=== PATIENT | female | born 1950 | race African-American/Black ===

== ENCOUNTER 2019-03-24 15:18 | Inpatient (IN) | payer BC, SELFPAY ==
[2019-03-24] VITALS (15 sets, daily range): BP systolic 80–161; BP diastolic 44–103; PULSE 76–116; RESP 16–39; TEMP 37.4; O2SAT 90–100; BMI 27.6
--- NOTE | ~2019-03-24 | XR_ITS ---
EXAMINATION: XR chest 1V portable DATE: 03/26/2019 06:30 INDICATION: Diffuse infiltrates. ARDS. TECHNIQUE: A single frontal view of the chest was obtained. COMPARISON: Chest single view 03/24/2019 FINDINGS: There are airspace opacities in all lung zones bilaterally, worst in left lower lung zone. There are small right and moderate-sized left pleural effusions. No pneumothorax. The heart size is n ormal. The endotracheal tube tip is 1.5 cm above the alec. The nasogastric tube tip is beyond the i nferior margin of the radiograph, but at least to the stomach. IMPRESSION: 1. Worsened diffuse lung disease, consistent with pulmonary edema versus pneumonia versus acute respi ratory distress syndrome (ARDS). 2. Worsened small right and moderate-sized left pleural effusions. Reviewed, dictated and finalized at location A. NCIAL INTERNSHIP IMPRESSION: 1. Worsened diffuse lung disease, consistent with pulmonary edema versus pneumo ariane versus acute respiratory distress syndrome (ARDS). 2. Worsened small right and moderate-sized left pleural effusions.
--- NOTE | ~2019-03-24 | XR_ITS ---
EXAMINATION: XR chest 1V portable INDICATION: Congestive heart failure TECHNIQUE: Portable AP chest at 1006 hours COMPARISON: 04/09/2019 FINDINGS: The endotracheal and nasogastric tubes have been removed. There is stable cardiomegaly. Dif fuse interstitial and airspace opacities persist but have improved, particularly in the mid and upper lung zones. No pneumothorax is identified. Small pleural effusions are stable. IMPRESSION: 1. Diffuse lung disease with interval improvement in the mid and upper lung zones, consistent with im proving pulmonary edema and/or pneumonia and/or acute respiratory distress syndrome. 2. Endotracheal and nasogastric tube removal. Reviewed, dictated and finalized at location A. SVERSE ABDOMINAL MUSCLE NURSE IMPRESSION: 1. Diffuse lung disease with interval improvement in the mid and upper lung zon es, consistent with improving pulmonary edema and/or pneumonia and/or acute res piratory distress syndrome. 2. Endotracheal and nasogastric tube removal.
--- NOTE | ~2019-03-24 | XR_ITS ---
EXAMINATION: XR chest 1V portable INDICATION: Diffuse infiltrates TECHNIQUE: Portable AP chest at 0508 hours COMPARISON: 03/27/2019 FINDINGS: The endotracheal tube ends approximately 2.3 cm above the alec. The nasogastric tube is f ollowed as far as the stomach. Its tip is beyond the inferior margin of the radiograph. Cardiomegaly is noted. There are stable pleural effusions. No pneumothorax is identified. IMPRESSION: 1. Diffuse lung disease with slight worsening in the left lung base, consistent with pulmonary edema and/or pneumonia and/or acute respiratory distress syndrome. Reviewed, dictated and finalized at location A. STRIAL ENGINEERING INTERN IMPRESSION: 1. Diffuse lung disease with slight worsening in the left lung base, consistent with pulmonary edema and/or pneumonia and/or acute respiratory distress syndro ca.
--- NOTE | ~2019-03-24 | XR_ITS ---
EXAMINATION: XR chest ET placement EXAM DATE: 03/24/2019 22:21 INDICATION: Check endotracheal tube position. TECHNIQUE: Portable AP frontal chest x-ray was obtained. Comparison is made to prior examination from earlier same date. FINDINGS: Endotracheal tube tip is 2 centimeters above the alec (ideal range is between 2 to 5 cm). There is a nasogastric tube seen with tip collimated off the study, but below the left hemidiaphrag m. There is extensive bilateral edema and/or pneumonia again noted. This appears slightly less confluent than on prior examination. Cardiac silhouette is stable in size compared to prior exam. There is no pneumothorax suspected. Possible small pleural effusions. There is aortic arterial sclerosis. Some th oracic spondylosis. IMPRESSION: 1. Tubes in expected position. 2. Extensive bilateral edema and/or pneumonia, may have slight improvement. Reviewed, dictated and finalized at location A. ITY PROSPECTING OPERATOR
--- NOTE | ~2019-03-24 | XR_ITS ---
EXAMINATION: XR chest 1V portable EXAM DATE: 03/24/2019 15:58 INDICATION: Shortness of breath, mid chest pain. TECHNIQUE: Frontal and lateral projections of the chest obtained and reviewed. Comparison is made to prior examination from 03/20/2019. FINDINGS: There is extensive bilateral perihilar distribution airspace disease, probably either pneu monia or edema, significant progression compared to prior study. There is cardiomegaly. Small pleural effusions. No pneumothorax. There is aortic arterial sclerosis. IMPRESSION: Extensive bilateral edema and/or pneumonia. Reviewed, dictated and finalized at location A. OSSE PLAYER
--- NOTE | ~2019-03-24 | XR_ITS ---
EXAMINATION: XR chest 1V portable INDICATION: Diffuse infiltrates, ARDS TECHNIQUE: Portable AP chest at 0507 hours COMPARISON: 03/26/2019 FINDINGS: Two diffuse interstitial and airspace opacities persist but have improved. The endotracheal tube ends approximately 2.7 cm above the alec. The nasogastric tube is followed as far as the stom ach. Its tip is beyond the inferior margin of the radiograph. Small pleural effusions persist with im provement on the left. There is no pneumothorax. IMPRESSION: 1. Diffuse lung disease with interval improvement, consistent with pulmonary edema and/or pneumonia a nd/or acute respiratory distress syndrome. 2. Small pleural effusions with improvement on the left. Reviewed, dictated and finalized at location A. SECURITY ARCHITECT IMPRESSION: 1. Diffuse lung disease with interval improvement, consistent with pulmonary ed iram and/or pneumonia and/or acute respiratory distress syndrome. 2. Small pleural effusions with improvement on the left.
--- NOTE | ~2019-03-24 | XR_ITS ---
EXAMINATION: XR chest 1V portable INDICATION: Diffuse infiltrates, ARDS TECHNIQUE: Portable AP chest at 0524 hours COMPARISON: 03/28/2019 FINDINGS: The endotracheal tube ends approximately 1.8 cm above the alec. The nasogastric tube is f ollowed as far as the stomach. Its tip is beyond the inferior margin of the radiograph. There is stab le cardiomegaly. Diffuse airspace opacities persist without significant change. There are stable pleu ral effusions. No pneumothorax is identified. IMPRESSION: 1. Diffuse lung disease without significant change, consistent with pulmonary edema and/or pneumonia and/or acute respiratory distress syndrome. Reviewed, dictated and finalized at location A. UETTE MACHINE OPERATOR HELPER IMPRESSION: 1. Diffuse lung disease without significant change, consistent with pulmonary e deidra and/or pneumonia and/or acute respiratory distress syndrome.
--- NOTE | ~2019-03-24 | XR_ITS ---
XR chest ET placement 03/24/2019 16:59 Indication: Endotracheal tube placement Procedure: AP portable chest Comparison: 03/24/2019 Findings: There is diffuse bilateral airspace disease. Interval placement of endotracheal tube, tip n ear the level of the alec. Recommend retraction for-5 cm. NG tube passes into the stomach. No pneum othorax. Impression: 1: Endotracheal tube tip near the alec directed towards the right mainstem bronchus. Recommend retr action for-5 cm. 2: Diffuse widespread bilateral airspace disease which may reflect edema, pneumonia and/or ARDS. Reviewed, dictated and finalized at location A. OO AND BODY ARTIST Impression: 1: Endotracheal tube tip near the alec directed towards the right mainstem br onchus. Recommend retraction for-5 cm. 2: Diffuse widespread bilateral airspace disease which may reflect edema, pneu monia and/or ARDS.
--- NOTE | ~2019-03-24 | XR_ITS ---
XR abdomen NG/feed tube insert INDICATION: Evaluate NG tube position. TECHNIQUE: Limited KUB perform for evaluating NG tube . COMPARISON: No prior studies for comparison. FINDINGS: NG tube tip in the stomach. Visualized bowel gas pattern is unremarkable. IMPRESSION: 1: NG tube tip in the stomach. Reviewed, dictated and finalized at location A. HER AND BLENDER OPERATOR
--- NOTE | ~2019-03-24 | XR_ITS ---
EXAMINATION: XR chest 1V portable INDICATION: Diffuse infiltrates, ARDS TECHNIQUE: Portable AP chest at 0435 hours COMPARISON: 03/29/2019 FINDINGS: The endotracheal tube ends approximately 2.6 cm above the alec. The nasogastric tube is f ollowed as far as the stomach. Its tip is beyond the inferior margin of the radiograph. There is stab le cardiomegaly. Diffuse airspace opacities, right greater than left, persist without significant marin nge. Small pleural effusions are stable. There is no pneumothorax. IMPRESSION: 1. Stable diffuse lung disease, consistent with pulmonary edema and/or pneumonia and/or acute respira tory distress syndrome. Reviewed, dictated and finalized at location A. CAL RESEARCH ASSOCIATE IMPRESSION: 1. Stable diffuse lung disease, consistent with pulmonary edema and/or pneumoni a and/or acute respiratory distress syndrome.
--- NOTE | 2019-03-24 15:21 | ED.SOB ---
HPI - SOB/Dyspnea General Chief Complaint: Shortness of Breath/Dyspnea Stated Complaint: sob Time Seen by Provider: 03/24/19 15:21 Source: EMS, RN notes reviewed and old records reviewed Mode of arrival: EMS Limitations: clinical condition and dementia History of Present Illness HPI Narrative: The pt is a 68 y/o female who presents to the ED, via EMS, c/o respiratory distress. Pt presents from [facility]. Per EMS, pt has had increased ABD swelling the last couple of days, and has had oxygen saturations in the 80s. Per RN, pt has a PMHx of dementia. Per old records, pt has a PMHx of COPD as well. HPI is limited due to the pt's clinical condition and dementia. MD elicited complaint: anxiety (Respiratory distress) Pertinent past history: COPD Known history of: COPD Associated symptoms: other (Unobtainable) Related Data Home Medications Medication Instructions Recorded Confirmed amlodipine 10 mg PO DAILY 03/20/19 03/24/19 atorvastatin 80 mg PO HS 03/20/19 03/24/19 budesonide-formoterol 2 puff INHALATION Q12H 03/20/19 03/24/19 ferrous sulfate 325 mg PO DAILY 03/20/19 03/24/19 furosemide 80 mg PO DAILY 03/20/19 03/24/19 haloperidol decanoate 100 mg IM MONTHLY 03/20/19 03/24/19 metformin 1,000 mg PO BID 03/20/19 03/24/19 metolazone 5 mg PO 3XW 03/20/19 03/24/19 pantoprazole 40 mg PO QAM 03/20/19 03/24/19 spironolactone 25 mg PO DAILY 03/20/19 03/24/19 acetaminophen 1,000 mg PO Q8H 03/24/19 03/24/19 aspirin 325 mg PO DAILY 03/24/19 03/24/19 donepezil [Aricept] 5 mg PO HS 03/24/19 03/24/19 fluticasone propion-salmeterol 1 puff INHALATION BID 03/24/19 03/24/19 lactulose 45 ml PO TID 03/24/19 03/24/19 memantine [Namenda] 5 mg PO QAM 03/24/19 03/24/19 nitroglycerin 0.3 mg SUBLINGUAL Q5-15M PRN 03/24/19 03/24/19 ondansetron HCl 4 mg PO Q8H PRN 03/24/19 03/24/19 Allergies Allergy/AdvReac Type Severity Reaction Status Date / Time Iodinated Contrast Media Allergy Unknown Verified 03/20/19 11:50 meperidine [From Demerol] Allergy Unknown Verified 03/20/19 11:50 Review of Systems Review of Systems: ROS unobtainable: unobtainable due to mental condition [facility] Past Medical History Medical History (Updated 03/24/19 @ 23:17 by Kennedy Scott MD) A-fib Anxiety Cirrhosis COPD (chronic obstructive pulmonary disease) Dementia DM (diabetes mellitus) DVT (deep venous thrombosis) Encephalopathy HTN (hypertension) with goal to be determined Hyperlipidemia Schizophrenia Surgical History Surgical History (Updated 03/20/19 @ 12:43 by Regis Ayala) Surgical history unknown Family History Family History (Updated 03/24/19 @ 20:03 by Belen Harmon NP) Unknown Family history unknown Social History Social History (Updated 03/24/19 @ 20:04 by Belen Harmon NP) Smoking status: Unknown if ever smoked [facility] Additional living arrangements comments: Pt lives at [facility]. Occupation/Education: retired Exam Narrative: Exam Narrative: Physical exam limited due to the pt's clinical condition. Const: General: alert, in distress severe and ill appearing acutely and chronically Resp: Effort & Inspection: tachypneic and uses accessory muscles Other: CPAP in place Cardio: Rate: tachycardic Rhythm: regular rhythm Heart sounds: no murmurs GI: GI Palp: Yes ascites Neuro: Other: Patient is alert but does not follow commands. Extrem: General: edema bilateral (2/3+ pitting BLE) Course Vital Signs Vital signs: Vital Signs Respiratory Rate 39 H 03/24/19 15:21 Blood Pressure 161/103 H 03/24/19 15:21 Pulse Oximetry 90 03/24/19 15:21 Temperature 37.4 C 03/24/19 20:00 Pulse Rate 79 03/24/19 22:14 Respiratory Rate 18 03/24/19 20:00 Blood Pressure 128/65 03/24/19 20:00 Pulse Oximetry 100 03/24/19 22:14 Procedures Intubation Intubation #1: Intubation Date: 03/24/19 Intubation Ti
--- NOTE | 2019-03-24 15:31 | ECG_ITS ---
Measurements Intervals [place] Rate: 108 P: 62 WV: 183 QRS: 122 QRSD: 93 T: 1 QT: 322 QTc: 433 Interpretive Statements SINUS TACHYCARDIA RIGHT AXIS DEVIATION BORDERLINE R WAVE PROGRESSION, ANTERIOR LEADS CONSIDER INFERIOR INFARCT, AGE INDETERMINATE BASELINE ARTIFACT- I, II, V1-V6 ABNORMAL ECG Electronically Signed On 03-24-2019 15:48:09 WINDING INSPECTOR by Omi Nuno D.O.
[2019-03-24 15:41] LABS: Alveolar/Arterial O2 Gradient 516.9 mmHg; Base Excess ABG 1.3 mEq/l (+/-2.0); Carboxyhemoglobin 1.6 % THb (0-2.0); Fractional Inspired Oxygen 100 %; HCO3 ABG 32.5 mEq/l (22.0-26.0); Methemoglobin ABG 0.5 %THb (0-1.5); Oxygen Content ABG 17.4 %vol (16.0-22.0); Oxygen Saturation ABG 95.9 % (95.0-100.0); Oxyhemoglobin 93.5 % THb (90.0-100.0); PO2 ABG 104.5 mmHg (80.0-100.0); PO2 FiO2 Ratio Arterial Blood 1.04 %; Reduced Hemoglobin 4.4 %THb (0-5.0); Total Hemoglobin 13.1 g/dL (12.0-18.0)
[2019-03-24] MEDS: NITROGLYCERIN OINTMENT 1 INCH DOSE TRANSDERM (15:41)
[2019-03-24] MEDS: FUROSEMIDE INJ 100 MG/10 ML VIAL 80 MG IV PUSH (15:41)
[2019-03-24 15:43] LABS: Device NON-INVASIVE VENT; Modified Allen's Test Pass; PCO2 ABG 91.6 mmHg (35.0-45.0); Site Drawn RIGHT RADIAL; pH ABG 7.168 (7.350-7.450)
[2019-03-24 15:44] LABS: Non-Invasive Expiratory Pressure 8 CMH2O; Non-Invasive Inspiratory Pressure 18 CMH2O; Non-Invasive Vent Rate 14 /MIN
[2019-03-24 16:01] LABS: Hematocrit 44.1 % (37.0-47.0); Hemoglobin 12.3 g/dL (12.0-15.0); Mean Corpuscular HGB Conc 27.9 g/dl (32-36); Mean Corpuscular Hemoglobin 28.9 pg (26-34); Mean Corpuscular Volume 103.5 fl (80-100); Mean Platelet Volume 8.5 fl (7.4-10.4); Platelet Count Result 556 k/mm3 (150-375); Red Blood Count 4.26 M/mm3 (4.2-5.4); Red Cell Distribution Width 17.2 % (11.5-14.5); White Blood Count 20.5 K/mm3 (4.5-10.0)
[2019-03-24 16:10] LABS: INR 1.1; Prothrombin Time 13.9 Seconds (11.1-14.7)
[2019-03-24 16:11] LABS: Partial Thromboplastin Time 29.9 SECONDS (22.3-36.8)
[2019-03-24 16:17] LABS: Band Neutrophils Percent 1 % (0-6); Eosinophils Percent Manual 1 % (0-4); Lymphocytes Absolute Manual 1.02 K/mm3 (1.1-4.5); Monocytes Absolute Manual 0.82 K/mm3 (0.1-0.90); Monocytes Percent Manual 4 % (3-9); Neutrophils Absolute Manual 18.45 K/mm3 (1.7-7.2); Neutrophils Percent Manual 89 % (46-73); Nucleated Red Blood Cells 1 %; Platelet Estimate Increased (Adequate); Total Cells Counted 100
[2019-03-24 16:18] LABS: Hypochromasia 1+ (NORMAL)
--- NOTE | 2019-03-24 16:34 | PC.NURSE ---
etomidate 20mg succ 100 mg given ivp pt intubated with 7.5 et tube 25 @ lip placement confirmed with end tidal co2 detector and breath sounds throughout king
[2019-03-24 16:41] LABS: Alanine Aminotransferase 14 U/L (4-35); Alkaline Phosphatase 148 U/L (38-126); Aspartate Amino Transferase 20 U/L (14-36); Bilirubin,Total 0.5 mg/dL (0.2-1.3); Blood Urea Nitrogen 18 mg/dL (7-17); Carbon Dioxide 34 mmol/L (22-30); Chloride 92 mmol/L (98-107); Estimated Glomerular Filt Rate > 60; Glucose 220 mg/dL (65-105); Potassium 3.7 mmol/L (3.4-5.0); Sodium 136 mmol/L (137-145)
[2019-03-24 16:52] LABS: NT Pro B Type Natriuretic Pept 11400 PG/ML (5-100); Troponin I 0.022 ng/mL (0.000-0.034)
[2019-03-24] MEDS: PROPOFOL IV EMULSION 100 ML 12.2 MG IV CONT (17:00)
[2019-03-24] MEDS: ALBUTEROL SULFATE NEB 2.5 MG/0.5 ML INH 10 MG INHALATION (17:15)
[2019-03-24] MEDS: IPRATROPIUM BR 0.02% INH SOLN 0.5 MG/2.5 ML VIAL 1 MG INHALATION (17:15)
--- NOTE | 2019-03-24 17:20 | PC.NURSE ---
ultrasound technician at bedside - ETT pulled back 3 cm, now at 23 at lip. RT also changed vent settings to pressure control: 45, PEEP 8, RR 18, FiO2 100%.
[2019-03-24] MEDS: PROPOFOL IV EMULSION 100 ML 8.2 MG IV CONT (17:40)
--- NOTE | 2019-03-24 17:52 | PC.NURSE ---
Versed 4 mg IVP given
--- NOTE | 2019-03-24 19:27 | ADMGEN ---
This patient, Sendy Malin, was admitted to Intensive Care Unit-1. Patient/family oriented to hospital policies and general routines including ID bracelet, bed and alarms, visiting hours, pain management, procedures, bathroom and other care routines, personal items, smoking policy, room service/diet, and visiting hours. Valuables list has been completed. Information on how to activate the Rapid Response Team has been discussed. Patient/Family are encouraged to report perceived risks to care and to ask questions if they do not understand what they are told or what they should do.
--- NOTE | 2019-03-24 19:45 | PM.IMHP ---
H&P: HPI History of Present Illness Chief complaint: Acute respiratory failure w/ hypoxia Narrative: Sendy Malin is a 68 year old female who comes from a intermediate [facility]. [facility] The patient had increased abdominal swelling the last couple days and her oxygen levels were in the 80s per the nurse at the intermediate. Limited history of present illness due to patient's dementia and also being intubated. The patient was intubated in the emergency room. Her white counts noted to be 20.5. Her ABGs pH was 7.168, CO2 was 91.6, PO2 was 104.5. The chest x-ray showed that the ET tube is near the tip directed towards the right mainstem bronchus. Recommend retraction for 5 cm. Diffuse widespread bilateral airspace disease which may reflect edema, pneumonia and her ARDS. Patient was given Lasix IV once for rales. The patient initially was tried on a BiPAP and initially was doing well with that but then had set several episodes of hypoxia. Patient was found to not be a good candidate for BiPAP and then was intubated and she is a full code. Date of service 03/24/2019 I saw the patient at 1845. Review of Systems Review of Systems: ROS unobtainable: due to endotracheal tube Integumentary/Breasts: Skin/Breast: Reports as per HPI [facility] Past Medical History Medical History (Updated 03/24/19 @ 20:10 by Belen Harmon NP) A-fib Anxiety Cirrhosis COPD (chronic obstructive pulmonary disease) Dementia DM (diabetes mellitus) DVT (deep venous thrombosis) Encephalopathy HTN (hypertension) with goal to be determined Hyperlipidemia Schizophrenia Surgical History Surgical History (Updated 03/20/19 @ 12:43 by Regis Ayala) Surgical history unknown Family History Family History (Updated 03/24/19 @ 20:03 by Belen Harmon NP) Unknown Family history unknown Social History Social History (Updated 03/24/19 @ 20:04 by Belen Harmon NP) Smoking status: Unknown if ever smoked [place] [facility] [facility] [place] Additional living arrangements comments: Pt lives at [facility]. Occupation/Education: retired Meds Home Medications and Allergies Home Medications Medication Instructions Recorded Confirmed Type amlodipine 10 mg PO DAILY 03/20/19 03/24/19 History atorvastatin 80 mg PO HS 03/20/19 03/24/19 History budesonide-formoterol 2 puff INHALATION Q12H 03/20/19 03/24/19 History ferrous sulfate 325 mg PO DAILY 03/20/19 03/24/19 History furosemide 80 mg PO DAILY 03/20/19 03/24/19 History haloperidol decanoate 100 mg IM MONTHLY 03/20/19 03/24/19 History metformin 1,000 mg PO BID 03/20/19 03/24/19 History metolazone 5 mg PO 3XW 03/20/19 03/24/19 History pantoprazole 40 mg PO QAM 03/20/19 03/24/19 History spironolactone 25 mg PO DAILY 03/20/19 03/24/19 History acetaminophen 1,000 mg PO Q8H 03/24/19 03/24/19 History aspirin 325 mg PO DAILY 03/24/19 03/24/19 History donepezil [Aricept] 5 mg PO HS 03/24/19 03/24/19 History fluticasone propion-salmeterol 1 puff INHALATION BID 03/24/19 03/24/19 History lactulose 45 ml PO TID 03/24/19 03/24/19 History memantine [Namenda] 5 mg PO QAM 03/24/19 03/24/19 History nitroglycerin 0.3 mg SUBLINGUAL Q5-15M PRN 03/24/19 03/24/19 History ondansetron HCl 4 mg PO Q8H PRN 03/24/19 03/24/19 History Allergies Allergy/AdvReac Type Severity Reaction Status Date / Time Iodinated Contrast Media Allergy Unknown Verified 03/20/19 11:50 meperidine [From Demerol] Allergy Unknown Verified 03/20/19 11:50 Vital Signs Vital Signs - 24 hr 03/24/19 15:21 03/24/19 15:30 03/24/19 15:37 Pulse Rate 109 H 112 H Respiratory Rate 39 H 32 H 22 H Blood Pressure 161/103 H Pulse Oximetry 90 99 03/24/19 15:40 03/24/19 17:00 03/24/19 17:26 Pulse Rate 110 H 98 116 H Respiratory Rate 28 H Blood Pressure Pulse Oximetry 99 92 97 03/24/19 18:12 03/24/19 18:33 Pulse Rate 80 86 Respiratory
[2019-03-24 20:28] LABS: Hemoglobin A1C 5.4 % (<5.7)
[2019-03-24] MEDS: MIDAZOLAM HCL 50 MG in DEXTROSE 5% 90 ML IV CONT (20:43)
[2019-03-24 20:44] LABS: Alveolar/Arterial O2 Gradient 567.9 mmHg; Base Excess ABG 5.5 mEq/l (+/-2.0); Fractional Inspired Oxygen 100 %; HCO3 ABG 25.1 mEq/l (22.0-26.0); Oxygen Content ABG 17.5 %vol (16.0-22.0); Oxyhemoglobin 97.6 % THb (90.0-100.0); PO2 ABG 121.6 mmHg (80.0-100.0); PO2 FiO2 Ratio Arterial Blood 1.22 %; Total Hemoglobin 12.6 g/dL (12.0-18.0)
[2019-03-24 20:45] LABS: Device VENTILATOR; Modified Allen's Test Pass; PCO2 ABG 23.5 mmHg (35.0-45.0); Site Drawn RIGHT RADIAL; pH ABG 7.647 (7.350-7.450)
[2019-03-24 20:46] LABS: Arterial Blood Gas PEEP 8 cmH2O; Arterial Blood Gas Vent Mode PRESSURE CONTROL; Arterial Blood Gas Ventilator rate 18 /MIN
[2019-03-24 20:47] LABS: Troponin I 0.052 ng/mL (0.000-0.034)
[2019-03-24 20:48] LABS: Arterial Blood Gas Minute Volume 16 LPM; Peak Inspiratory Pressure 1 cmH2O
[2019-03-24] MEDS: DONEPEZIL HCL 5 MG TABLET PO (22:35)
[2019-03-24] MEDS: PROPOFOL IV EMULSION 100 ML 20.4 MG IV CONT (23:05)
--- NOTE | 2019-03-24 23:15 | P.PCNBED_ITS ---
Procedures Central Line Placement: Right Femoral: Discussed w/ patient and/or surrogate, the non-emergent placement of a central venous catheter, including its clinical necessity/indication & associated potential risks & complications.: No (patient intubated and sedated) The patient and/or surrogate understand(s) and acknowledge(s) the need to proceed with central venous catheter insertion as an important element of the patient's clinical management.: No (no poa available) Emergently Placed - (Given emergent patient conditions, temporal constraints may not have permitted and aforementioned informed consent.): Yes Central Line Date: 03/24/19 Central Line Time: 22:45 Pre-procedural Time-Out was completed immediately before starting the procedure and confirmed: Patient Identification, Site, Procedure, Patient Position and the Availability of Requisite Equipment.: Yes Patient Position: supine Patient placed on monitor/pulse ox: Yes Provider Prep: mask, sterile gown, sterile gloves, Max. sterile barrier precautions, cap and hand hygiene Central line prep: Povidone-Iodine 1% and sterile full body sheet applied Local anesthesia used: lidocaine 2% Amount of anesthesia used (ml): 6 Ultrasound used for placement: Yes Central line lumen inserted: triple Upper Sorbian: 7 Length (cm): 16 Depth of Insertion (cm): 15 Post procedure: sutured in place, good blood return, all ports aspirated, flushed, capped, tegaderm and antimicrobial disc Post procedure x-ray: other (no need for x ray as it is femerol) Patient tolerated procedure: well Complications: none Additional comments: dark blood noted from all three ports
[2019-03-25] VITALS (30 sets, daily range): BP systolic 80–114; BP diastolic 47–68; PULSE 69–140; RESP 16–24; TEMP 36.3–37.7; O2SAT 90–100
--- NOTE | 2019-03-25 | ECHO_ITS ---
Patient Info Name: Sendy Malin Age: 68 years : 1950 Gender: Female Ht: 64 in Wt: 163 lbs BSA: 1.85 m2 HR: 82 bpm BP: 108 / 59 mmHg Heart Rhythm: Sinus Rhythm Technical Quality: Good Exam Date: 03/25/2019 9:14 AM Exam Location: [facility] Pulmonary Exam Room: ICU-1 Patient Status: Inpatient Admit Date: 03/24/2019 Staff Ordering Physician: Belen Harmon NP Disabilities Services Officer: Frida Quintana RDCS Attending Provider: Maddi Camp MD Referring Physician: Eden PHOENIX; Exam Type: CA echo doppler color flow Study Info Indications - PULM EDEMA SOB SUAZO Complete two-dimensional, color flow and Doppler transthoracic echocardiogram is performed. Summary 1. Left ventricular systolic function is hyperdynamic, estimated at Empty. 2. Right ventricular chamber dimension is severely enlarged. 3. Right atrial chamber dimension is severely enlarged. 4. There is moderate tricuspid valve regurgitation. 5. Severe pulmonary hypertension, estimated pulmonary arterial systolic pressure is 94 mmHg. Left Ventricle Left ventricular chamber dimension is normal. Left ventricular systolic function is hyperdynamic, estimated at Empty. There is mild concentric increased left ventricular wall thickness. The left ventricular diastolic function is grade I diastolic dysfunction. Right Ventricle Right ventricular chamber dimension is severely enlarged. Right ventricular systolic function is reduced. Left Atria Left atrial chamber dimension is mildly enlarged. Right Atria Right atrial chamber dimension is severely enlarged. Aortic Valve The aortic valve is trileaflet. Pulmonic Valve The pulmonic valve is not well visualized. Mitral Valve The mitral valve has normal leaflets. Tricuspid Valve The tricuspid valve leaflets are normal. There is moderate tricuspid valve regurgitation. Severe pulmonary hypertension, estimated pulmonary arterial systolic pressure is 94 mmHg. Pericardium/Pleural The pericardium appears normal. Aorta The aortic root size at the sinus of Valsalva is normal. Left Ventricular Outflow Tract Name Value Normal LVOT 2D LVOT Diameter 2.0 cm LVOT Doppler LVOT Peak Gradient 5 mmHg LVOT Mean Gradient 3 mmHg LVOT VTI 22 cm LVOT VTI/AV VTI Ratio 0.9 LVOT Stroke Volume 72 ml LVOT CO 16.5 l/min LVOT CI 8.9 l/min/m2 Pulmonic Valve Name Value Normal PV Doppler PV Peak Gradient 4 mmHg Mitral Valve Name Value Normal MV D
[2019-03-25] MEDS: DORNASE ALFA INH SOLN 1 MG/ML 2.5 ML AMP 2.5 MG INHALATION ×2 (00:07→08:53)
[2019-03-25] MEDS: NOREPINEPHRINE 8 MG/D5W 250 ML 8 MG/250 ML BAG 9.4 MG IV CONT (00:15)
[2019-03-25 00:37] LABS: Troponin I 0.071 ng/mL (0.000-0.034)
[2019-03-25] MEDS: ALBUTEROL SULFATE NEB 2.5 MG/0.5 ML INH INHALATION ×3 (01:43→14:34)
[2019-03-25] MEDS: IPRATROPIUM BR 0.02% INH SOLN 0.5 MG/2.5 ML VIAL INHALATION ×3 (01:43→14:34)
--- NOTE | 2019-03-25 02:37 | PC.NURSE ---
patient was placed on ICU tele monitor at 1839.
[2019-03-25 04:23] LABS: Glucose Point of Care 182 (65-105)
[2019-03-25 04:33] LABS: Alveolar/Arterial O2 Gradient 592.3 mmHg; Base Excess ABG 6.2 mEq/l (+/-2.0); Carboxyhemoglobin 0.4 % THb (0-2.0); Fractional Inspired Oxygen 100 %; HCO3 ABG 30.4 mEq/l (22.0-26.0); Methemoglobin ABG 0.5 %THb (0-1.5); Oxygen Content ABG 15.3 %vol (16.0-22.0); Oxygen Saturation ABG 96.3 % (95.0-100.0); Oxyhemoglobin 94.3 % THb (90.0-100.0); PO2 ABG 78.7 mmHg (80.0-100.0); PO2 FiO2 Ratio Arterial Blood 0.79 %; Reduced Hemoglobin 4.8 %THb (0-5.0); Total Hemoglobin 11.5 g/dL (12.0-18.0); pH ABG 7.477 (7.350-7.450)
[2019-03-25 04:34] LABS: Device VENTILATOR; Modified Allen's Test Pass; Site Drawn LEFT RADIAL
[2019-03-25 04:35] LABS: Arterial Blood Gas Minute Volume 8 LPM; Arterial Blood Gas PEEP 8 cmH2O; Arterial Blood Gas Vent Mode PRESSURE CONTROL; Arterial Blood Gas Ventilator rate 16 /MIN; Peak Inspiratory Pressure 18 cmH2O
[2019-03-25 04:36] LABS: Arterial Blood Gas Tidal Volume 450 ml
[2019-03-25] MEDS: PROPOFOL IV EMULSION 100 ML 12.2 MG IV CONT ×2 (05:00→12:54)
[2019-03-25 05:32] LABS: Basophils Absolute Auto 0.1 K/mm3 (0.0-0.1); Basophils Percent Auto 0.4 % (0.2-1.2); Eosinophils Percent Auto 0.1 % (0-4.4); Hemoglobin 10.3 g/dL (12.0-15.0); Immature Granulocyte Absolute 0.06 K/mm3 (0.00-0.031); Immature Granulocyte Percent A 0.4 % (0-0.5); Lymphocytes Absolute Auto 1.02 K/mm3 (0.9-3.2); Lymphocytes Percent Auto 6.4 % (18.3-44.2); Mean Corpuscular HGB Conc 29.4 g/dl (32-36); Mean Corpuscular Hemoglobin 29.3 pg (26-34); Mean Corpuscular Volume 99.4 fl (80-100); Mean Platelet Volume 8.5 fl (7.4-10.4); Monocytes Absolute Auto 0.6 K/mm3 (0.1-0.6); Monocytes Percent Auto 3.7 % (2.6-8.5); Neutrophils Absolute Auto 14.2 K/mm3 (1.3-6.7); Nucleated Red Blood Cells Perc 0.1 % (0.0-0.2); Platelet Count Result 443 k/mm3 (150-375); Red Blood Count 3.52 M/mm3 (4.2-5.4); Red Cell Distribution Width 17.5 % (11.5-14.5); White Blood Count 15.9 K/mm3 (4.5-10.0)
[2019-03-25 06:15] LABS: Macrocytosis 1+ (NORMAL); Platelet Estimate Adequate (Adequate)
[2019-03-25 06:16] LABS: Microcytosis 1+ (NORMAL)
[2019-03-25 07:49] LABS: Alanine Aminotransferase 11 U/L (4-35); Albumin Level 2.7 g/dL (3.5-5.1); Alkaline Phosphatase 82 U/L (38-126); Aspartate Amino Transferase 23 U/L (14-36); Bilirubin,Total 0.5 mg/dL (0.2-1.3); Blood Urea Nitrogen 23 mg/dL (7-17); Calcium 8.3 mg/dL (8.4-10.2); Carbon Dioxide 31 mmol/L (22-30); Chloride 92 mmol/L (98-107); Estimated CRCL calculation 52 ml/min; Estimated Glomerular Filt Rate > 60; Glucose 158 mg/dL (65-105); Magnesium 1.3 mg/dL (1.6-2.3); Sodium 132 mmol/L (137-145)
[2019-03-25 07:58] LABS: Potassium 3.5 mmol/L (3.4-5.0)
[2019-03-25] MEDS: LACTULOSE 20 GM/30 ML UDC 30 GM PO (09:06)
[2019-03-25] MEDS: MEMANTINE 5 MG TABLET PO (09:07)
[2019-03-25] MEDS: FERROUS SULFATE 324 MG TABLET PO (09:07)
--- NOTE | 2019-03-25 09:27 | WPDCNINT ---
Assessment and Plan Assessment and plan (1) Septic shock: Code(s): A41.9 - Sepsis, unspecified organism; R65.21 - Severe sepsis with septic shock Status: Acute Assessment and Plan: patient presented with pneumonia, acute respiratory failure, ARDS physiology - patient was given Lasix in the ED - will hold patient's Lasix, Zaroxolyn, spironolactone - patient started on ceftriaxone and azithromycin - blood cultures have been obtained and pending (2) Acute respiratory failure with hypoxia and hypercapnia: Code(s): J96.01 - Acute respiratory failure with hypoxia; J96.02 - Acute respiratory failure with hypercapnia Status: Acute Assessment and Plan: patient with acute hypercapnic respiratory failure likely related to COPD, aspiration pneumonia, ARDS physiology - patient initially was on pressure control ventilation with pressure support of 45 and a peep of 8, which give her M mean airway pressure of 53 and tidal volumes of 850 mL. Patient is 5 ft 4 in. Discussed with respiratory therapist last night targeted tidal volumes close to 400. ABGs much improved this morning. - Patient remains on 85% FiO2, patient changed to CMV mode of ventilation, low tidal volume and high peep strategy as patient has ARDS physiology, to avoid volume trauma and barotrauma. - Continue azithromycin and ceftriaxone - continue bronchodilators (3) CAP (community acquired pneumonia): Qualifiers: Laterality: unspecified laterality Qualified Code(s): J18.9 - Pneumonia, unspecified organism Code(s): J18.9 - Pneumonia, unspecified organism Status: Acute Assessment and Plan: bilateral diffuse infiltrates likely pneumonia /aspiration pneumonitis - vent settings as above - antibiotics as above (4) COPD (chronic obstructive pulmonary disease): Qualifiers: COPD type: unspecified COPD Qualified Code(s): J44.9 - Chronic obstructive pulmonary disease, unspecified Code(s): J44.9 - Chronic obstructive pulmonary disease, unspecified Status: Chronic Assessment and Plan: patient was history of severe COPD, [facility] but she does not wear it in to her daughters. - Continue bronchodilators, will add steroids, continue mechanical ventilation and antibiotics (5) A-fib: Qualifiers: Atrial fibrillation type: unspecified chronic Qualified Code(s): I48.20 - Chronic atrial fibrillation, unspecified Code(s): I48.91 - Unspecified atrial fibrillation Status: Chronic Assessment and Plan: currently in sinus rhythm, rate controlled, will continue to monitor (6) Cirrhosis: Qualifiers: Ascites presence: with ascites Hepatic cirrhosis type: unspecified hepatic cirrhosis Qualified Code(s): K74.60 - Unspecified cirrhosis of liver; R18.8 - Other ascites Code(s): K74.60 - Unspecified cirrhosis of liver Status: Chronic Assessment and Plan: LFTs are within normal limits (7) DM (diabetes mellitus): Code(s): E11.9 - Type 2 diabetes mellitus without complications Status: Chronic Assessment and Plan: history of diabetes, on sliding scale insulin Accu-Cheks, maintain blood sugars < 180 - hemoglobin A1c on 03/24/2019 was 5.4 (8) DVT prophylaxis: Code(s): Z29.9 - Encounter for prophylactic measures, unspecified Status: Acute Assessment and Plan: DVT prophylaxis: Lovenox stress ulcer prophylaxis: Protonix Additional Plan discussed with 3 daughters at bedside and updated them with patient's condition, plan of care. I answered all questions. I also discussed with them regarding code status and all 3 daughters stated that she is a full code. Code status: Full code Critical care time spent: 47 minutes Due to a high probability of clinically significant, life threatening deterioration, the patient required my highest level of prepar
[2019-03-25 10:39] LABS: Ammonia < 9 umol/L (9-30)
[2019-03-25] MEDS: SODIUM CHLORIDE 0.9% IV 1,000 ML 75 ML IV CONT (11:02)
[2019-03-25] MEDS: ENOXAPARIN 40 MG/0.4 ML SYRINGE SUB-Q (11:17)
[2019-03-25] MEDS: MAGNESIUM SULFATE 3GM/D5W100ML 3 GM/100 ML BAG IVPB (11:17)
[2019-03-25] MEDS: PANTOPRAZOLE SODIUM IV 40 MG VIAL IV PUSH (11:18)
[2019-03-25] MEDS: methylPREDNISolone SOD SUCC 40 MG VIAL IV PUSH ×2 (11:18→17:49)
[2019-03-25 11:50] LABS: Glucose Point of Care 108 (65-105)
[2019-03-25] MEDS: MIDAZOLAM HCL 50 MG in DEXTROSE 5% 90 ML IV CONT (15:02)
--- NOTE | 2019-03-25 16:46 | PM.IMPN ---
Progress Note: A&P Assessment and Plan (1) Septic shock: Code(s): A41.9 - Sepsis, unspecified organism; R65.21 - Severe sepsis with septic shock Status: Acute Assessment and Plan: SEe below (2) DVT prophylaxis: Code(s): Z29.9 - Encounter for prophylactic measures, unspecified Status: Acute (3) Acute respiratory failure with hypoxia and hypercapnia: Code(s): J96.01 - Acute respiratory failure with hypoxia; J96.02 - Acute respiratory failure with hypercapnia Status: Acute Assessment and Plan: intubated in icu (4) Pulmonary edema: Qualifiers: Chronicity: acute Qualified Code(s): J81.0 - Acute pulmonary edema Code(s): J81.1 - Chronic pulmonary edema Status: Resolved Assessment and Plan: was on iv lasix yesterday (5) Hyperlipidemia: Code(s): E78.5 - Hyperlipidemia, unspecified Status: Chronic Assessment and Plan: Hold atorvastatin (6) HTN (hypertension) with goal to be determined: Code(s): I10 - Essential (primary) hypertension Status: Chronic Assessment and Plan: Hold blood pressure medicine at this time. continue to watch pt is on vasopressors (7) CAP (community acquired pneumonia): Qualifiers: Laterality: unspecified laterality Qualified Code(s): J18.9 - Pneumonia, unspecified organism Code(s): J18.9 - Pneumonia, unspecified organism Status: Acute Assessment and Plan: Patient in intubated in icu pt is on i rocephin, iv zithromax and iv steroids (8) A-fib: Qualifiers: Atrial fibrillation type: unspecified chronic Qualified Code(s): I48.20 - Chronic atrial fibrillation, unspecified Code(s): I48.91 - Unspecified atrial fibrillation Status: Chronic Assessment and Plan: Currently in sinus rhythm. (9) COPD (chronic obstructive pulmonary disease): Qualifiers: COPD type: unspecified COPD Qualified Code(s): J44.9 - Chronic obstructive pulmonary disease, unspecified Code(s): J44.9 - Chronic obstructive pulmonary disease, unspecified Status: Chronic Assessment and Plan: Continue with nebulizer treatments. (10) Schizophrenia: Code(s): F20.9 - Schizophrenia, unspecified Status: Chronic (11) Cirrhosis: Qualifiers: Ascites presence: with ascites Hepatic cirrhosis type: unspecified hepatic cirrhosis Qualified Code(s): K74.60 - Unspecified cirrhosis of liver; R18.8 - Other ascites Code(s): K74.60 - Unspecified cirrhosis of liver Status: Chronic Assessment and Plan: Continue with her lactulose through the OG tube. She is also on metolazone. (12) DM (diabetes mellitus): Code(s): E11.9 - Type 2 diabetes mellitus without complications Status: Chronic Assessment and Plan: Accu-Cheks every 6 hours. Sliding scale insulin. Check A1c. (13) Dementia: Code(s): F03.90 - Unspecified dementia without behavioral disturbance Status: Chronic Assessment and Plan: Continue with her Namenda per Og tube Subjective Date/time seen: 03/25/19 16:46 Interval history: Miss Malin is a 68 year old female who comes from a [place] [facility]. [facility], [facility]. The patient had increased abdominal swelling the last couple days and her oxygen levels were in the 80s per the [place] [facility] [place]. admitted for HCAP and af .intubated in icu Review of Systems Review of Systems: ROS unobtainable: due to endotracheal tube Exam Const: Nutritional Appearance: thin Orientation/consciousness: oriented to place HENMT: Head: no palpable skull fracture, normocephalic and atraumatic Ears: hearing grossly normal bilaterally and external ears normal General nose exam: external nose normal Eyes: General: appearance normal, both eyes and all related structures Eyelids: eyelids normal Conju
[2019-03-25 18:05] LABS: Glucose Point of Care 126 (65-105)
[2019-03-25] MEDS: PROPOFOL IV EMULSION 100 ML 10.2 MG IV CONT (20:22)
[2019-03-25] MEDS: DONEPEZIL HCL 5 MG TABLET PO (20:56)
--- NOTE | 2019-03-25 21:33 | ECG_ITS ---
Measurements Intervals [place] Rate: 70 P: 71 WI: 194 QRS: 150 QRSD: 98 T: 79 QT: 475 QTc: 514 Interpretive Statements SINUS RHYTHM RIGHT AXIS DEVIATION POOR R WAVE PROGRESSION, ANTERIOR LEADS INFERIOR INFARCT, AGE INDETERMINATE T WAVE ABNORMALITY IN ANTERIOR LEADS- CONSIDER ISCHEMIA ABNORMAL ECG Electronically Signed On 03-26-2019 8:49:27 VOCATIONAL REHABILITATION ADMINISTRATOR by Omi Nuno D.O.
[2019-03-25 22:08] LABS: Troponin I 0.023 ng/mL (0.000-0.034)
[2019-03-26] VITALS (28 sets, daily range): BP systolic 94–118; BP diastolic 57–73; PULSE 57–102; RESP 10–21; TEMP 36.4–37.2; O2SAT 95–100
[2019-03-26] MEDS: methylPREDNISolone SOD SUCC 40 MG VIAL IV PUSH ×4 (00:27→18:09)
[2019-03-26 00:48] LABS: Glucose Point of Care 174 (65-105)
[2019-03-26] MEDS: IPRATROPIUM BR 0.02% INH SOLN 0.5 MG/2.5 ML VIAL INHALATION ×4 (02:20→19:52)
[2019-03-26] MEDS: ALBUTEROL SULFATE NEB 2.5 MG/0.5 ML INH INHALATION ×4 (02:20→19:52)
[2019-03-26] MEDS: PROPOFOL IV EMULSION 100 ML 10.2 MG IV CONT ×2 (03:56→16:12)
[2019-03-26 04:03] LABS: Hemoglobin 9.4 g/dL (12.0-15.0); Mean Corpuscular HGB Conc 29.4 g/dl (32-36); Mean Corpuscular Volume 98.8 fl (80-100); Mean Platelet Volume 8.7 fl (7.4-10.4); Platelet Count Result 357 k/mm3 (150-375); Red Blood Count 3.24 M/mm3 (4.2-5.4); Red Cell Distribution Width 17.2 % (11.5-14.5); White Blood Count 6.5 K/mm3 (4.5-10.0)
[2019-03-26 04:09] LABS: Lactic Acid 1.5 mmol/L (0.7-2.1)
[2019-03-26 04:10] LABS: Alanine Aminotransferase 10 U/L (4-35); Albumin Level 2.6 g/dL (3.5-5.1); Alkaline Phosphatase 72 U/L (38-126); Aspartate Amino Transferase 14 U/L (14-36); Bilirubin,Total 0.4 mg/dL (0.2-1.3); Blood Urea Nitrogen 25 mg/dL (7-17); Calcium 7.9 mg/dL (8.4-10.2); Carbon Dioxide 29 mmol/L (22-30); Chloride 97 mmol/L (98-107); Estimated CRCL calculation 47 ml/min; Estimated Glomerular Filt Rate > 60; Glucose 163 mg/dL (65-105); Magnesium 2.1 mg/dL (1.6-2.3); Phosphorus 5.6 mg/dL (2.5-4.5); Potassium 3.6 mmol/L (3.4-5.0); Sodium 136 mmol/L (137-145)
[2019-03-26] MEDS: SODIUM CHLORIDE 0.9% IV 1,000 ML 75 ML IV CONT (05:15)
[2019-03-26 06:06] LABS: Alveolar/Arterial O2 Gradient 273.4 mmHg; Base Excess ABG 5.5 mEq/l (+/-2.0); Carboxyhemoglobin 0.3 % THb (0-2.0); Fractional Inspired Oxygen 55 %; Methemoglobin ABG 0.4 %THb (0-1.5); Oxygen Content ABG 14.3 %vol (16.0-22.0); Oxygen Saturation ABG 96.3 % (95.0-100.0); Oxyhemoglobin 94.2 % THb (90.0-100.0); PO2 ABG 76.5 mmHg (80.0-100.0); PO2 FiO2 Ratio Arterial Blood 1.39 %; Reduced Hemoglobin 5.1 %THb (0-5.0); Total Hemoglobin 10.7 g/dL (12.0-18.0)
[2019-03-26 06:07] LABS: Device VENTILATOR; Modified Allen's Test Pass; Site Drawn RIGHT RADIAL
[2019-03-26 06:08] LABS: Arterial Blood Gas PEEP 10 cmH2O; Arterial Blood Gas Tidal Volume 380 ml; Arterial Blood Gas Vent Mode CMV; Arterial Blood Gas Ventilator rate 20 /MIN
[2019-03-26] MEDS: ENOXAPARIN 40 MG/0.4 ML SYRINGE SUB-Q (08:16)
[2019-03-26] MEDS: PANTOPRAZOLE SODIUM IV 40 MG VIAL IV PUSH (08:17)
[2019-03-26] MEDS: FERROUS SULFATE 324 MG TABLET PO (08:17)
[2019-03-26] MEDS: MEMANTINE 5 MG TABLET PO (08:17)
[2019-03-26] MEDS: DORNASE ALFA INH SOLN 1 MG/ML 2.5 ML AMP 2.5 MG INHALATION ×2 (08:18→19:52)
--- NOTE | 2019-03-26 09:39 | WPDINTPN ---
Progress Note: A&P Assessment and Plan (1) Septic shock: Code(s): A41.9 - Sepsis, unspecified organism; R65.21 - Severe sepsis with septic shock Status: Acute Assessment and Plan: OFF LEVOPHED: patient presented with pneumonia, acute respiratory failure, ARDS physiology - patient started on ceftriaxone and azithromycin - blood cultures are negative x2, sputum cultures growing rare GP cm range did gram-positive bacilli, culture in progress (2) Acute respiratory failure with hypoxia and hypercapnia: Code(s): J96.01 - Acute respiratory failure with hypoxia; J96.02 - Acute respiratory failure with hypercapnia Status: Acute Assessment and Plan: patient with acute hypercapnic respiratory failure likely related to COPD, aspiration pneumonia, ARDS physiology - on CMV mode of ventilation, FiO2 decreased to 55%, remains on peep of 10. - Chest x-ray and ABGs reviewed - continue bronchodilators - continue azithromycin and ceftriaxone (3) CAP (community acquired pneumonia): Qualifiers: Laterality: unspecified laterality Qualified Code(s): J18.9 - Pneumonia, unspecified organism Code(s): J18.9 - Pneumonia, unspecified organism Status: Acute Assessment and Plan: bilateral diffuse infiltrates likely pneumonia /aspiration pneumonitis - vent settings as above - antibiotics as above (4) COPD (chronic obstructive pulmonary disease): Qualifiers: COPD type: unspecified COPD Qualified Code(s): J44.9 - Chronic obstructive pulmonary disease, unspecified Code(s): J44.9 - Chronic obstructive pulmonary disease, unspecified Status: Chronic Assessment and Plan: patient was history of severe COPD, is supposed to be [facility] oxygen [facility] the shelter but she does not wear it in to her daughters. - Continue bronchodilators, continue steroids, continue mechanical ventilation and antibiotics (5) A-fib: Qualifiers: Atrial fibrillation type: unspecified chronic Qualified Code(s): I48.20 - Chronic atrial fibrillation, unspecified Code(s): I48.91 - Unspecified atrial fibrillation Status: Chronic Assessment and Plan: currently in sinus rhythm, rate controlled, will continue to monitor (6) Cirrhosis: Qualifiers: Ascites presence: with ascites Hepatic cirrhosis type: unspecified hepatic cirrhosis Qualified Code(s): K74.60 - Unspecified cirrhosis of liver; R18.8 - Other ascites Code(s): K74.60 - Unspecified cirrhosis of liver Status: Chronic Assessment and Plan: LFTs are within normal limits - ammonia levels < 9 (7) DM (diabetes mellitus): Code(s): E11.9 - Type 2 diabetes mellitus without complications Status: Chronic Assessment and Plan: history of diabetes, on sliding scale insulin Accu-Cheks, maintain blood sugars < 180 - hemoglobin A1c on 03/24/2019 was 5.4 (8) DVT prophylaxis: Code(s): Z29.9 - Encounter for prophylactic measures, unspecified Status: Acute Assessment and Plan: DVT prophylaxis: Lovenox stress ulcer prophylaxis: Protonix (9) Dietary counseling and surveillance: Code(s): Z71.3 - Dietary counseling and surveillance Status: Acute Assessment and Plan: will start patient on Glucerna, will have dietary evaluate the patient Additional Plan discussed with 2 daughters at bedside and updated them with patient's condition, plan of care. I answered all questions. I also discussed with them regarding code status and all 3 daughters stated that she is a full code. Code status: Full code Critical care time spent: 32 minutes Due to a high probability of clinically significant, life threatening deterioration, the patient required my highest level of preparedness to intervene emergently and I personally spent this critical care time directly and personally managing the patient. This critical care time inc
[2019-03-26] MEDS: MIDAZOLAM HCL 50 MG in DEXTROSE 5% 90 ML IV CONT (10:26)
[2019-03-26 11:32] LABS: Glucose Point of Care 171 (65-105)
--- NOTE | 2019-03-26 12:54 | PM.IMPN ---
Progress Note: A&P Assessment and Plan (1) Septic shock: Code(s): A41.9 - Sepsis, unspecified organism; R65.21 - Severe sepsis with septic shock Status: Acute Assessment and Plan: SEe below (2) DVT prophylaxis: Code(s): Z29.9 - Encounter for prophylactic measures, unspecified Status: Acute Assessment and Plan: on lovenox (3) Acute respiratory failure with hypoxia and hypercapnia: Code(s): J96.01 - Acute respiratory failure with hypoxia; J96.02 - Acute respiratory failure with hypercapnia Status: Acute Assessment and Plan: Intubated in icu, on vent, breathing treatments, iv steroids, iv rocephin and iv zithromax. Respiratory status improving, weaning off vent. (4) Pulmonary edema: Qualifiers: Chronicity: acute Qualified Code(s): J81.0 - Acute pulmonary edema Code(s): J81.1 - Chronic pulmonary edema Status: Resolved Assessment and Plan: was on iv lasix on admission, (5) Hyperlipidemia: Code(s): E78.5 - Hyperlipidemia, unspecified Status: Chronic Assessment and Plan: Hold atorvastatin (6) HTN (hypertension) with goal to be determined: Code(s): I10 - Essential (primary) hypertension Status: Chronic Assessment and Plan: off vasopressors (7) CAP (community acquired pneumonia): Qualifiers: Laterality: unspecified laterality Qualified Code(s): J18.9 - Pneumonia, unspecified organism Code(s): J18.9 - Pneumonia, unspecified organism Status: Acute Assessment and Plan: Patient in intubated in icu pt is on i rocephin, iv zithromax and iv steroids (8) A-fib: Qualifiers: Atrial fibrillation type: unspecified chronic Qualified Code(s): I48.20 - Chronic atrial fibrillation, unspecified Code(s): I48.91 - Unspecified atrial fibrillation Status: Chronic Assessment and Plan: Currently in sinus rhythm. (9) COPD (chronic obstructive pulmonary disease): Qualifiers: COPD type: unspecified COPD Qualified Code(s): J44.9 - Chronic obstructive pulmonary disease, unspecified Code(s): J44.9 - Chronic obstructive pulmonary disease, unspecified Status: Chronic Assessment and Plan: Continue with nebulizer treatments. (10) Schizophrenia: Code(s): F20.9 - Schizophrenia, unspecified Status: Chronic (11) Cirrhosis: Qualifiers: Ascites presence: with ascites Hepatic cirrhosis type: unspecified hepatic cirrhosis Qualified Code(s): K74.60 - Unspecified cirrhosis of liver; R18.8 - Other ascites Code(s): K74.60 - Unspecified cirrhosis of liver Status: Chronic Assessment and Plan: Continue with her lactulose through the OG tube. She is also on metolazone. (12) DM (diabetes mellitus): Code(s): E11.9 - Type 2 diabetes mellitus without complications Status: Chronic Assessment and Plan: Accu-Cheks every 6 hours. Sliding scale insulin. Check A1c. (13) Dementia: Code(s): F03.90 - Unspecified dementia without behavioral disturbance Status: Chronic Assessment and Plan: Continue with her Namenda per Og tube Subjective Date/time seen: 03/26/19 12:54 Interval history: Miss Malin is a 68 year old female who [facility] a [facility]. She does live it, so [facility]. The patient had increased abdominal swelling the last couple days and her oxygen levels were in the 80s per the [facility] the [facility]. admitted for acute respiratory failure, HCAP and af .intubated in icu, weaning off the vent, still having cough and heavy secretions. Daughters want her placed elsewhere they do not like [facility]. Review of Systems Review of Systems: ROS unobtainable: due to endotracheal tube Exam Const: Other: on a vent HENMT: Ears: external ears normal Resp: Effort & Inspection: othe
[2019-03-26 18:09] LABS: Glucose Point of Care 165 (65-105)
[2019-03-26] MEDS: SODIUM CHLORIDE 0.9% IV 1,000 ML 50 ML IV CONT (18:11)
[2019-03-26] MEDS: DONEPEZIL HCL 5 MG TABLET PO (20:01)
[2019-03-27] VITALS (27 sets, daily range): BP systolic 99–140; BP diastolic 57–80; PULSE 46–92; RESP 11–22; TEMP 36.3–37.3; O2SAT 96–100; BMI 29.7
[2019-03-27] MEDS: methylPREDNISolone SOD SUCC 40 MG VIAL IV PUSH ×4 (00:23→17:21)
[2019-03-27 00:40] LABS: Glucose Point of Care 176 (65-105)
[2019-03-27] MEDS: IPRATROPIUM BR 0.02% INH SOLN 0.5 MG/2.5 ML VIAL INHALATION ×4 (01:34→19:50)
[2019-03-27] MEDS: ALBUTEROL SULFATE NEB 2.5 MG/0.5 ML INH INHALATION ×4 (01:34→19:49)
[2019-03-27] MEDS: PROPOFOL IV EMULSION 100 ML 8.2 MG IV CONT (02:19)
[2019-03-27 04:18] LABS: Hematocrit 32.5 % (37.0-47.0); Hemoglobin 9.7 g/dL (12.0-15.0); Mean Corpuscular HGB Conc 29.8 g/dl (32-36); Mean Corpuscular Hemoglobin 29.1 pg (26-34); Mean Corpuscular Volume 97.6 fl (80-100); Mean Platelet Volume 8.9 fl (7.4-10.4); Platelet Count Result 350 k/mm3 (150-375); Red Blood Count 3.33 M/mm3 (4.2-5.4); Red Cell Distribution Width 17.2 % (11.5-14.5); White Blood Count 8.2 K/mm3 (4.5-10.0)
[2019-03-27 04:30] LABS: Lactic Acid 1.3 mmol/L (0.7-2.1)
[2019-03-27 04:33] LABS: Alanine Aminotransferase 11 U/L (4-35); Albumin Level 2.7 g/dL (3.5-5.1); Alkaline Phosphatase 71 U/L (38-126); Aspartate Amino Transferase 15 U/L (14-36); Bilirubin,Total 0.3 mg/dL (0.2-1.3); Blood Urea Nitrogen 35 mg/dL (7-17); Calcium 7.6 mg/dL (8.4-10.2); Carbon Dioxide 27 mmol/L (22-30); Chloride 99 mmol/L (98-107); Estimated CRCL calculation 47 ml/min; Estimated Glomerular Filt Rate > 60; Glucose 233 mg/dL (65-105); Magnesium 2.2 mg/dL (1.6-2.3); Phosphorus 4.8 mg/dL (2.5-4.5); Potassium 3.7 mmol/L (3.4-5.0); Sodium 135 mmol/L (137-145)
[2019-03-27 05:23] LABS: Alveolar/Arterial O2 Gradient 94.1 mmHg; Base Excess ABG 4.2 mEq/l (+/-2.0); Carboxyhemoglobin 0.3 % THb (0-2.0); Fractional Inspired Oxygen 30 %; Methemoglobin ABG 0.3 %THb (0-1.5); Oxygen Content ABG 14.3 %vol (16.0-22.0); Oxygen Saturation ABG 95.8 % (95.0-100.0); Oxyhemoglobin 93.6 % THb (90.0-100.0); PCO2 ABG 38.7 mmHg (35.0-45.0); PO2 ABG 74.3 mmHg (80.0-100.0); PO2 FiO2 Ratio Arterial Blood 2.48 %; Reduced Hemoglobin 5.8 %THb (0-5.0); Total Hemoglobin 10.8 g/dL (12.0-18.0); pH ABG 7.477 (7.350-7.450)
[2019-03-27 05:24] LABS: Device VENTILATOR; Modified Allen's Test Unable to perform; Site Drawn LEFT RADIAL
[2019-03-27 05:25] LABS: Arterial Blood Gas PEEP 10 cmH2O; Arterial Blood Gas Tidal Volume 380 ml; Arterial Blood Gas Vent Mode CMV; Arterial Blood Gas Ventilator rate 16 /MIN
[2019-03-27 05:33] LABS: Glucose Point of Care 219 (65-105)
[2019-03-27] MEDS: INSULIN ASPART (*BKC) 100 UNITS/ML SUB-Q ×3 (05:34→17:21)
[2019-03-27] MEDS: MEMANTINE 5 MG TABLET PO (09:37)
[2019-03-27] MEDS: PANTOPRAZOLE SODIUM IV 40 MG VIAL IV PUSH (09:37)
[2019-03-27] MEDS: ENOXAPARIN 40 MG/0.4 ML SYRINGE SUB-Q (09:37)
[2019-03-27] MEDS: FERROUS SULFATE 324 MG TABLET PO (09:37)
[2019-03-27] MEDS: FUROSEMIDE INJ 40 MG/4 ML VIAL IV PUSH (09:40)
--- NOTE | 2019-03-27 09:47 | WPDINTPN ---
Progress Note: A&P Assessment and Plan (1) Septic shock: Code(s): A41.9 - Sepsis, unspecified organism; R65.21 - Severe sepsis with septic shock Status: Acute Assessment and Plan: OFF LEVOPHED: patient presented with pneumonia, acute respiratory failure, ARDS physiology - patient started on ceftriaxone and azithromycin - blood cultures are negative x2, sputum cultures growing Normal respiratory christa - echocardiogram done on 03/25/2019 showed hyperdynamic LV systolic function, EF 74%, right ventricular chamber severely enlarged, right atrial chamber dimension is severely enlarged. Moderate tricuspid valve regurg, severe pulmonary hypertension with pulmonary artery systolic pressures of 94 mmHg. (2) Acute respiratory failure with hypoxia and hypercapnia: Code(s): J96.01 - Acute respiratory failure with hypoxia; J96.02 - Acute respiratory failure with hypercapnia Status: Acute Assessment and Plan: patient with acute hypercapnic respiratory failure likely related to COPD, aspiration pneumonia, ARDS physiology. pulmonary V/Q scan on 03/20/2019 showed low probability pulmonary embolism. , air trapping, could be COPD. Lower extremity venous Dopplers on 03/20/2019 with no DVT in bilateral lower extremities - on CMV mode of ventilation, FiO2 decreased to 30%, remains on peep of 10. will decrease peep to 8 - Chest x-ray and ABGs reviewed, FiO2 - continue bronchodilators - continue azithromycin and ceftriaxone - will diurese patient today (3) CAP (community acquired pneumonia): Qualifiers: Laterality: unspecified laterality Qualified Code(s): J18.9 - Pneumonia, unspecified organism Code(s): J18.9 - Pneumonia, unspecified organism Status: Acute Assessment and Plan: bilateral diffuse infiltrates likely pneumonia /aspiration pneumonitis - vent settings as above - antibiotics as above (4) COPD (chronic obstructive pulmonary disease): Qualifiers: COPD type: unspecified COPD Qualified Code(s): J44.9 - Chronic obstructive pulmonary disease, unspecified Code(s): J44.9 - Chronic obstructive pulmonary disease, unspecified Status: Chronic Assessment and Plan: patient was history of severe COPD, is supposed to be on oxygen at the [facility] but she does not wear it in to her daughters. - Continue bronchodilators, continue steroids, continue mechanical ventilation and antibiotics (5) A-fib: Qualifiers: Atrial fibrillation type: unspecified chronic Qualified Code(s): I48.20 - Chronic atrial fibrillation, unspecified Code(s): I48.91 - Unspecified atrial fibrillation Status: Chronic Assessment and Plan: currently in sinus rhythm, rate controlled, will continue to monitor (6) Cirrhosis: Qualifiers: Ascites presence: with ascites Hepatic cirrhosis type: unspecified hepatic cirrhosis Qualified Code(s): K74.60 - Unspecified cirrhosis of liver; R18.8 - Other ascites Code(s): K74.60 - Unspecified cirrhosis of liver Status: Chronic Assessment and Plan: LFTs are within normal limits - ammonia levels < 9 (7) DM (diabetes mellitus): Code(s): E11.9 - Type 2 diabetes mellitus without complications Status: Chronic Assessment and Plan: history of diabetes, on sliding scale insulin Accu-Cheks, maintain blood sugars < 180 - hemoglobin A1c on 03/24/2019 was 5.4 (8) DVT prophylaxis: Code(s): Z29.9 - Encounter for prophylactic measures, unspecified Status: Acute Assessment and Plan: DVT prophylaxis: Lovenox stress ulcer prophylaxis: Protonix (9) Dietary counseling and surveillance: Code(s): Z71.3 - Dietary counseling and surveillance Status: Acute Assessment and Plan: will start patient on Glucerna, will have dietary evaluate the patient Additional Plan discussed with 2 daughters at bedside and update
[2019-03-27] MEDS: PROPOFOL IV EMULSION 100 ML 10.2 MG IV CONT ×2 (11:25→21:25)
[2019-03-27 12:19] LABS: Glucose Point of Care 215 (65-105)
[2019-03-27 17:43] LABS: Glucose Point of Care 212 (65-105)
--- NOTE | 2019-03-27 18:51 | PM.IMPN ---
Progress Note: A&P Assessment and Plan (1) Septic shock: Code(s): A41.9 - Sepsis, unspecified organism; R65.21 - Severe sepsis with septic shock Status: Acute Assessment and Plan: Patient with severe septic shock secondary pneumonia patient was on pressor now off patient is seen by billing and quality technician and appreciate (2) DVT prophylaxis: Code(s): Z29.9 - Encounter for prophylactic measures, unspecified Status: Acute Assessment and Plan: on lovenox (3) Acute respiratory failure with hypoxia and hypercapnia: Code(s): J96.01 - Acute respiratory failure with hypoxia; J96.02 - Acute respiratory failure with hypercapnia Status: Acute Assessment and Plan: Intubated in icu, on vent, breathing treatments, iv steroids, iv rocephin and iv zithromax. Respiratory status improving, weaning off vent. (4) Pulmonary edema: Qualifiers: Chronicity: acute Qualified Code(s): J81.0 - Acute pulmonary edema Code(s): J81.1 - Chronic pulmonary edema Status: Resolved Assessment and Plan: was on iv lasix on admission, (5) Hyperlipidemia: Code(s): E78.5 - Hyperlipidemia, unspecified Status: Chronic Assessment and Plan: Hold atorvastatin (6) HTN (hypertension) with goal to be determined: Code(s): I10 - Essential (primary) hypertension Status: Chronic Assessment and Plan: off vasopressors (7) CAP (community acquired pneumonia): Qualifiers: Laterality: unspecified laterality Qualified Code(s): J18.9 - Pneumonia, unspecified organism Code(s): J18.9 - Pneumonia, unspecified organism Status: Acute Assessment and Plan: Patient in intubated in icu pt is on i rocephin, iv zithromax and iv steroids (8) A-fib: Qualifiers: Atrial fibrillation type: unspecified chronic Qualified Code(s): I48.20 - Chronic atrial fibrillation, unspecified Code(s): I48.91 - Unspecified atrial fibrillation Status: Chronic Assessment and Plan: Currently in sinus rhythm. (9) COPD (chronic obstructive pulmonary disease): Qualifiers: COPD type: unspecified COPD Qualified Code(s): J44.9 - Chronic obstructive pulmonary disease, unspecified Code(s): J44.9 - Chronic obstructive pulmonary disease, unspecified Status: Chronic Assessment and Plan: Continue with nebulizer treatments. (10) Schizophrenia: Code(s): F20.9 - Schizophrenia, unspecified Status: Chronic (11) Cirrhosis: Qualifiers: Ascites presence: with ascites Hepatic cirrhosis type: unspecified hepatic cirrhosis Qualified Code(s): K74.60 - Unspecified cirrhosis of liver; R18.8 - Other ascites Code(s): K74.60 - Unspecified cirrhosis of liver Status: Chronic Assessment and Plan: Continue with her lactulose through the OG tube. She is also on metolazone. (12) DM (diabetes mellitus): Code(s): E11.9 - Type 2 diabetes mellitus without complications Status: Chronic Assessment and Plan: Accu-Cheks every 6 hours. Sliding scale insulin. Check A1c. (13) Dementia: Code(s): F03.90 - Unspecified dementia without behavioral disturbance Status: Chronic Assessment and Plan: Continue with her Namenda per Og tube Subjective Date/time seen: 03/27/19 18:51 Interval history: chief complaint: acute respiratory failure with hypoxia, pneumonia /possible ARDS Patient is seen and examined the ICU, is intubated, on CMV mode of ventilation, 30% FiO2, peep of 10. Sedated with Versed 1mg/hr and propofol 25 mcg/kg/min infusion. patient opens her eyes, follows simple commands in all extremities. Urine output has been adequate, patient has been off Levophed, WBC count has normalized. Patient is hemodynamically stable, afebrile patient is seen by billing and quality technician and appreciate Review of Systems Review of Systems: ROS unobtainable: due
[2019-03-27] MEDS: DORNASE ALFA INH SOLN 1 MG/ML 2.5 ML AMP 2.5 MG INHALATION (19:50)
[2019-03-27] MEDS: DONEPEZIL HCL 5 MG TABLET PO (21:25)
[2019-03-28] VITALS (28 sets, daily range): BP systolic 121–158; BP diastolic 59–78; PULSE 43–77; RESP 14–25; TEMP 36.1–36.9; O2SAT 96–100
[2019-03-28] MEDS: INSULIN ASPART (*BKC) 100 UNITS/ML SUB-Q ×4 (01:10→17:25)
[2019-03-28] MEDS: methylPREDNISolone SOD SUCC 40 MG VIAL IV PUSH ×4 (01:10→17:25)
[2019-03-28] MEDS: MIDAZOLAM HCL 50 MG in DEXTROSE 5% 90 ML IV CONT (01:11)
[2019-03-28 01:22] LABS: Glucose Point of Care 226 (65-105)
[2019-03-28] MEDS: IPRATROPIUM BR 0.02% INH SOLN 0.5 MG/2.5 ML VIAL INHALATION ×4 (01:28→19:53)
[2019-03-28] MEDS: ALBUTEROL SULFATE NEB 2.5 MG/0.5 ML INH INHALATION ×4 (01:28→19:53)
[2019-03-28 04:25] LABS: Hematocrit 34.5 % (37.0-47.0); Mean Platelet Volume 9.1 fl (7.4-10.4); Platelet Count Result 338 k/mm3 (150-375); Red Blood Count 3.45 M/mm3 (4.2-5.4); Red Cell Distribution Width 16.8 % (11.5-14.5)
[2019-03-28 04:31] LABS: Alveolar/Arterial O2 Gradient 92.6 mmHg; Base Excess ABG 4.9 mEq/l (+/-2.0); Carboxyhemoglobin 0.6 % THb (0-2.0); Device VENTILATOR; Fractional Inspired Oxygen 30 %; HCO3 ABG 28.4 mEq/l (22.0-26.0); Methemoglobin ABG 0.3 %THb (0-1.5); Modified Allen's Test Pass; Oxygen Content ABG 14.2 %vol (16.0-22.0); Oxygen Saturation ABG 96.4 % (95.0-100.0); Oxyhemoglobin 94.5 % THb (90.0-100.0); PCO2 ABG 37.6 mmHg (35.0-45.0); PO2 ABG 77.1 mmHg (80.0-100.0); PO2 FiO2 Ratio Arterial Blood 2.57 %; Reduced Hemoglobin 4.6 %THb (0-5.0); Site Drawn RIGHT RADIAL; Total Hemoglobin 10.6 g/dL (12.0-18.0); pH ABG 7.496 (7.350-7.450)
[2019-03-28 04:32] LABS: Arterial Blood Gas PEEP 10 cmH2O; Arterial Blood Gas Pressure Support 0 cmH2O; Arterial Blood Gas Tidal Volume 380 ml; Arterial Blood Gas Vent Mode CMV; Arterial Blood Gas Ventilator rate 16 /MIN
[2019-03-28 04:40] LABS: Alanine Aminotransferase 14 U/L (4-35); Albumin Level 2.9 g/dL (3.5-5.1); Alkaline Phosphatase 71 U/L (38-126); Aspartate Amino Transferase 16 U/L (14-36); Bilirubin,Total 0.2 mg/dL (0.2-1.3); Blood Urea Nitrogen 40 mg/dL (7-17); Calcium 8.1 mg/dL (8.4-10.2); Carbon Dioxide 27 mmol/L (22-30); Chloride 100 mmol/L (98-107); Estimated CRCL calculation 59 ml/min; Estimated Glomerular Filt Rate > 60; Glucose 235 mg/dL (65-105); Magnesium 2.3 mg/dL (1.6-2.3); Phosphorus 3.3 mg/dL (2.5-4.5); Potassium 3.8 mmol/L (3.4-5.0); Sodium 135 mmol/L (137-145)
[2019-03-28 04:42] LABS: Lactic Acid 2.1 mmol/L (0.7-2.1)
[2019-03-28] MEDS: PROPOFOL IV EMULSION 100 ML 8.2 MG IV CONT (05:47)
[2019-03-28 06:55] LABS: Glucose Point of Care 208 (65-105)
[2019-03-28] MEDS: FUROSEMIDE INJ 40 MG/4 ML VIAL IV PUSH (08:05)
[2019-03-28] MEDS: PANTOPRAZOLE SODIUM IV 40 MG VIAL IV PUSH (08:06)
[2019-03-28] MEDS: ENOXAPARIN 40 MG/0.4 ML SYRINGE SUB-Q (08:06)
[2019-03-28] MEDS: FERROUS SULFATE 324 MG TABLET PO (08:07)
[2019-03-28] MEDS: MEMANTINE 5 MG TABLET PO (08:07)
[2019-03-28] MEDS: INSULIN DETEMIR 100 UNITS/ML SUB-Q ×2 (08:10→21:28)
[2019-03-28] MEDS: DORNASE ALFA INH SOLN 1 MG/ML 2.5 ML AMP 2.5 MG INHALATION ×3 (08:23→19:53)
--- NOTE | 2019-03-28 08:43 | WPDINTPN ---
Progress Note: A&P Assessment and Plan (1) Septic shock: Code(s): A41.9 - Sepsis, unspecified organism; R65.21 - Severe sepsis with septic shock Status: Acute Assessment and Plan: OFF LEVOPHED: patient presented with pneumonia, acute respiratory failure, ARDS physiology - patient started on ceftriaxone and azithromycin - blood cultures are negative x2, sputum cultures growing Normal respiratory christa - echocardiogram done on 03/25/2019 showed hyperdynamic LV systolic function, EF 74%, right ventricular chamber severely enlarged, right atrial chamber dimension is severely enlarged. Moderate tricuspid valve regurg, severe pulmonary hypertension with pulmonary artery systolic pressures of 94 mmHg. (2) Acute respiratory failure with hypoxia and hypercapnia: Code(s): J96.01 - Acute respiratory failure with hypoxia; J96.02 - Acute respiratory failure with hypercapnia Status: Acute Assessment and Plan: patient with acute hypercapnic respiratory failure likely related to COPD, aspiration pneumonia, ARDS physiology. pulmonary V/Q scan on 03/20/2019 showed low probability pulmonary embolism. , air trapping, could be COPD. Lower extremity venous Dopplers on 03/20/2019 with no DVT in bilateral lower extremities - on CMV mode of ventilation, FiO2 decreased to 30%, remains on peep of 10. will decrease peep to 8 - Chest x-ray and ABGs reviewed, FiO2 - continue bronchodilators - continue azithromycin and ceftriaxone - Will diurese patient (3) CAP (community acquired pneumonia): Qualifiers: Laterality: unspecified laterality Qualified Code(s): J18.9 - Pneumonia, unspecified organism Code(s): J18.9 - Pneumonia, unspecified organism Status: Acute Assessment and Plan: bilateral diffuse infiltrates likely pneumonia /aspiration pneumonitis - vent settings as above - antibiotics as above (4) COPD (chronic obstructive pulmonary disease): Qualifiers: COPD type: unspecified COPD Qualified Code(s): J44.9 - Chronic obstructive pulmonary disease, unspecified Code(s): J44.9 - Chronic obstructive pulmonary disease, unspecified Status: Chronic Assessment and Plan: patient was history of severe COPD, is supposed to be on oxygen at the [facility] but she does not wear it in to her daughters. - Continue bronchodilators, continue steroids, continue mechanical ventilation and antibiotics (5) A-fib: Qualifiers: Atrial fibrillation type: unspecified chronic Qualified Code(s): I48.20 - Chronic atrial fibrillation, unspecified Code(s): I48.91 - Unspecified atrial fibrillation Status: Chronic Assessment and Plan: currently in sinus rhythm, rate controlled, will continue to monitor (6) Cirrhosis: Qualifiers: Ascites presence: with ascites Hepatic cirrhosis type: unspecified hepatic cirrhosis Qualified Code(s): K74.60 - Unspecified cirrhosis of liver; R18.8 - Other ascites Code(s): K74.60 - Unspecified cirrhosis of liver Status: Chronic Assessment and Plan: LFTs are within normal limits - ammonia levels < 9 (7) DM (diabetes mellitus): Code(s): E11.9 - Type 2 diabetes mellitus without complications Status: Chronic Assessment and Plan: history of diabetes, on sliding scale insulin Accu-Cheks, maintain blood sugars < 180 - blood sugars have been elevated, will start small dose Levemir - hemoglobin A1c on 03/24/2019 was 5.4 (8) Dietary counseling and surveillance: Code(s): Z71.3 - Dietary counseling and surveillance Status: Acute Assessment and Plan: tolerating tube feeds, - Glucerna at goal (9) HTN (hypertension) with goal to be determined: Code(s): I10 - Essential (primary) hypertension Status: Chronic Assessment and Plan: started on home antihypertensives (10) DVT prophylaxis: Code(s): Z29.9
[2019-03-28] MEDS: AMLODIPINE BESYLATE 5 MG TABLET 10 MG PO (10:44)
[2019-03-28] MEDS: ASPIRIN 325 MG TABLET PO (10:45)
--- NOTE | 2019-03-28 11:08 | PCDIET ---
Nutrition Follow-Up Complete: Nutrition Diagnosis: Inadequate oral intake related to oral intubation as evidenced by need for enteral feedings. Nutrition Goal: Patient to meet estimated needs. Goal met. Patient tolerating Glucerna 1.2 @ 50mL/hr with 0-10mL residuals. Last recorded weight is 78.2 kg which is increased. I/O positive. Bowel Motility: +BM x 1 today. Labs Reviewed: Glu (235), Na (135), Alb (2.9), Arie Ca WNL Meds Noted: Ferrous Sulfate, Albuterol, Rocephin, Novolog, Levophed, Levemir, Versed, Protonix, Vancomycin, s/p Lasix Additional Notes: Left lower leg abrasion and right groin puncture; no pressure sores documented. Recommend continuing present tube feeding until able to extubate. Nutrition Monitoring and Evaluation: Follow up every Wednesday/Wednesday. Follow daily in ICU rounds.
[2019-03-28 11:46] LABS: Glucose Point of Care 244 (65-105)
--- NOTE | 2019-03-28 16:32 | PM.IMPN ---
Progress Note: A&P Assessment and Plan (1) Septic shock: Code(s): A41.9 - Sepsis, unspecified organism; R65.21 - Severe sepsis with septic shock Status: Acute Assessment and Plan: Patient with severe septic shock secondary pneumonia patient was on pressor now off patient is seen by forestry scientist and appreciate (2) DVT prophylaxis: Code(s): Z29.9 - Encounter for prophylactic measures, unspecified Status: Acute Assessment and Plan: on lovenox (3) Acute respiratory failure with hypoxia and hypercapnia: Code(s): J96.01 - Acute respiratory failure with hypoxia; J96.02 - Acute respiratory failure with hypercapnia Status: Acute Assessment and Plan: Intubated in icu, on vent, breathing treatments, iv steroids, iv rocephin and iv zithromax. Respiratory status improving, weaning off vent. (4) Pulmonary edema: Qualifiers: Chronicity: acute Qualified Code(s): J81.0 - Acute pulmonary edema Code(s): J81.1 - Chronic pulmonary edema Status: Resolved Assessment and Plan: was on iv lasix on admission, (5) Hyperlipidemia: Code(s): E78.5 - Hyperlipidemia, unspecified Status: Chronic Assessment and Plan: Hold atorvastatin (6) HTN (hypertension) with goal to be determined: Code(s): I10 - Essential (primary) hypertension Status: Chronic Assessment and Plan: off vasopressors (7) CAP (community acquired pneumonia): Qualifiers: Laterality: unspecified laterality Qualified Code(s): J18.9 - Pneumonia, unspecified organism Code(s): J18.9 - Pneumonia, unspecified organism Status: Acute Assessment and Plan: Patient in intubated in icu pt is on i rocephin, iv zithromax and iv steroids (8) A-fib: Qualifiers: Atrial fibrillation type: unspecified chronic Qualified Code(s): I48.20 - Chronic atrial fibrillation, unspecified Code(s): I48.91 - Unspecified atrial fibrillation Status: Chronic Assessment and Plan: Currently in sinus rhythm. (9) COPD (chronic obstructive pulmonary disease): Qualifiers: COPD type: unspecified COPD Qualified Code(s): J44.9 - Chronic obstructive pulmonary disease, unspecified Code(s): J44.9 - Chronic obstructive pulmonary disease, unspecified Status: Chronic Assessment and Plan: Continue with nebulizer treatments. (10) Schizophrenia: Code(s): F20.9 - Schizophrenia, unspecified Status: Chronic (11) Cirrhosis: Qualifiers: Ascites presence: with ascites Hepatic cirrhosis type: unspecified hepatic cirrhosis Qualified Code(s): K74.60 - Unspecified cirrhosis of liver; R18.8 - Other ascites Code(s): K74.60 - Unspecified cirrhosis of liver Status: Chronic Assessment and Plan: Continue with her lactulose through the OG tube. She is also on metolazone. (12) DM (diabetes mellitus): Code(s): E11.9 - Type 2 diabetes mellitus without complications Status: Chronic Assessment and Plan: Accu-Cheks every 6 hours. Sliding scale insulin. Check A1c. (13) Dementia: Code(s): F03.90 - Unspecified dementia without behavioral disturbance Status: Chronic Assessment and Plan: Continue with her Namenda per Og tube Subjective Date/time seen: 03/28/19 16:32 Interval history: chief complaint: acute respiratory failure with hypoxia, pneumonia /possible ARDS Patient is seen and examined the ICU, is intubated, on CMV mode of ventilation, 30% FiO2, peep of 10. Sedated with Versed 1mg/hr and propofol 25 mcg/kg/min infusion. patient opens her eyes, follows simple commands in all extremities. Urine output has been adequate, patient has been off Levophed, WBC count has normalized. Patient is hemodynamically stable, blood and sputum culture still no growth, afebrile, plan is extubate patient in 1 to 2 days as her symptoms improve, pat
[2019-03-28 17:37] LABS: Glucose Point of Care 232 (65-105)
[2019-03-28] MEDS: ATORVASTATIN 40 MG TABLET 80 MG PO (21:27)
[2019-03-28] MEDS: DONEPEZIL HCL 5 MG TABLET PO (21:27)
[2019-03-29] VITALS (27 sets, daily range): BP systolic 130–172; BP diastolic 62–85; PULSE 37–88; RESP 10–22; TEMP 36.1–37.1; O2SAT 93–100
[2019-03-29 00:04] LABS: Glucose Point of Care 243 (65-105)
[2019-03-29] MEDS: INSULIN ASPART (*BKC) 100 UNITS/ML SUB-Q ×5 (00:06→23:37)
[2019-03-29] MEDS: methylPREDNISolone SOD SUCC 40 MG VIAL IV PUSH ×5 (00:06→23:38)
[2019-03-29] MEDS: IPRATROPIUM BR 0.02% INH SOLN 0.5 MG/2.5 ML VIAL INHALATION ×4 (02:06→20:12)
[2019-03-29] MEDS: ALBUTEROL SULFATE NEB 2.5 MG/0.5 ML INH INHALATION ×4 (02:06→20:12)
[2019-03-29 04:40] LABS: Hematocrit 33.3 % (37.0-47.0); Hemoglobin 9.9 g/dL (12.0-15.0); Mean Corpuscular HGB Conc 29.7 g/dl (32-36); Mean Corpuscular Hemoglobin 29.2 pg (26-34); Mean Corpuscular Volume 98.2 fl (80-100); Mean Platelet Volume 9.3 fl (7.4-10.4); Platelet Count Result 337 k/mm3 (150-375); Red Blood Count 3.39 M/mm3 (4.2-5.4); Red Cell Distribution Width 16.3 % (11.5-14.5)
[2019-03-29 04:55] LABS: Alanine Aminotransferase 14 U/L (4-35); Albumin Level 2.8 g/dL (3.5-5.1); Alkaline Phosphatase 69 U/L (38-126); Aspartate Amino Transferase 16 U/L (14-36); Bilirubin,Total 0.3 mg/dL (0.2-1.3); Blood Urea Nitrogen 35 mg/dL (7-17); Calcium 8.3 mg/dL (8.4-10.2); Carbon Dioxide 27 mmol/L (22-30); Chloride 98 mmol/L (98-107); Estimated CRCL calculation 77 ml/min; Estimated Glomerular Filt Rate > 60; Glucose 234 mg/dL (65-105); Magnesium 2.2 mg/dL (1.6-2.3); Phosphorus 2.6 mg/dL (2.5-4.5); Potassium 3.6 mmol/L (3.4-5.0); Sodium 134 mmol/L (137-145)
[2019-03-29 05:22] LABS: Lactic Acid 2.1 mmol/L (0.7-2.1)
[2019-03-29 05:54] LABS: Alveolar/Arterial O2 Gradient 103.7 mmHg; Base Excess ABG 5.1 mEq/l (+/-2.0); Carboxyhemoglobin 0.3 % THb (0-2.0); Fractional Inspired Oxygen 30 %; HCO3 ABG 28.1 mEq/l (22.0-26.0); Methemoglobin ABG 0.3 %THb (0-1.5); Oxygen Content ABG 14.7 %vol (16.0-22.0); Oxygen Saturation ABG 95.3 % (95.0-100.0); PCO2 ABG 35.7 mmHg (35.0-45.0); PO2 ABG 68.3 mmHg (80.0-100.0); PO2 FiO2 Ratio Arterial Blood 2.28 %; Reduced Hemoglobin 6.4 %THb (0-5.0); Total Hemoglobin 11.2 g/dL (12.0-18.0)
[2019-03-29 05:55] LABS: Device VENTILATOR; Modified Allen's Test Pass; Site Drawn LEFT RADIAL; pH ABG 7.514 (7.350-7.450)
[2019-03-29 05:56] LABS: Arterial Blood Gas PEEP 8 cmH2O; Arterial Blood Gas Tidal Volume 380 ml; Arterial Blood Gas Vent Mode CMV; Arterial Blood Gas Ventilator rate 16 /MIN
[2019-03-29] MEDS: MIDAZOLAM HCL 50 MG in DEXTROSE 5% 90 ML IV CONT (06:21)
[2019-03-29 06:36] LABS: Glucose Point of Care 232 (65-105)
[2019-03-29] MEDS: PANTOPRAZOLE SODIUM IV 40 MG VIAL IV PUSH (08:46)
[2019-03-29] MEDS: AMLODIPINE BESYLATE 5 MG TABLET 10 MG PO (08:46)
[2019-03-29] MEDS: ASPIRIN 325 MG TABLET PO (08:46)
[2019-03-29] MEDS: MEMANTINE 5 MG TABLET PO (08:46)
[2019-03-29] MEDS: FERROUS SULFATE 324 MG TABLET PO (08:46)
[2019-03-29] MEDS: ENOXAPARIN 40 MG/0.4 ML SYRINGE SUB-Q (08:46)
[2019-03-29] MEDS: INSULIN DETEMIR 100 UNITS/ML 12 UNITS SUB-Q ×2 (08:47→20:05)
[2019-03-29] MEDS: POTASSIUM CHLORIDE 20 MEQ PACKET (FOR LIQUID) 40 MEQ FEED TUBE (08:47)
[2019-03-29] MEDS: hydrALAZINE HCL 25 MG TABLET PO ×4 (09:07→20:08)
[2019-03-29] MEDS: SPIRONOLACTONE 25 MG TABLET PO (09:07)
[2019-03-29] MEDS: FUROSEMIDE INJ 40 MG/4 ML VIAL IV PUSH (09:08)
[2019-03-29] MEDS: DORNASE ALFA INH SOLN 1 MG/ML 2.5 ML AMP 2.5 MG INHALATION ×2 (09:41→20:12)
--- NOTE | 2019-03-29 10:53 | PCDIET ---
ICU Rounding Note: Patient remains intubated with new order to change to ASV mode. Patient tolerating Glucerna 1.2 @ 50mL/hr goal rate well. Last recorded weight is 78.2kg which is increased. I/O negative. Bowel Motility: BM x 1 on 03/28/19. Labs Reviewed: Glu (232), BUN (35), Cr (0.6), Na (134), Alb (2.8) Meds Noted: Albuterol, Rocephin, Ferrous Sulfate, Lasix, Novolog, Levemir, Solu Medrol, Versed, Levophed, Protonix, Aldactone, Vancomycin Additional Notes: Right groin puncture; no reported pressure sores. No recommended changes at this time. Following daily in ICU rounds. Assessing/reassessing every Wednesday/Wednesday.
--- NOTE | 2019-03-29 11:01 | WPDINTPN ---
Progress Note: A&P Assessment and Plan (1) Septic shock: Code(s): A41.9 - Sepsis, unspecified organism; R65.21 - Severe sepsis with septic shock Status: Acute Assessment and Plan: OFF LEVOPHED: patient presented with pneumonia, acute respiratory failure, ARDS physiology - patient started on ceftriaxone and azithromycin - blood cultures are negative x2, sputum cultures growing Normal respiratory christa - echocardiogram done on 03/25/2019 showed hyperdynamic LV systolic function, EF 74%, right ventricular chamber severely enlarged, right atrial chamber dimension is severely enlarged. Moderate tricuspid valve regurg, severe pulmonary hypertension with pulmonary artery systolic pressures of 94 mmHg. (2) Acute respiratory failure with hypoxia and hypercapnia: Code(s): J96.01 - Acute respiratory failure with hypoxia; J96.02 - Acute respiratory failure with hypercapnia Status: Acute Assessment and Plan: Patient with acute hypercapnic respiratory failure likely related to COPD, aspiration pneumonia, ARDS physiology. Pulmonary V/Q scan on 03/20/2019 showed low probability pulmonary embolism., air trapping, could be COPD. Lower extremity venous Dopplers on 03/20/2019 with no DVT in bilateral lower extremities - on CMV mode of ventilation, FiO2 decreased to 30%, remains on peep of 8 - Chest x-ray and ABGs reviewed, FiO2 - continue bronchodilators - continue azithromycin and ceftriaxone - Will diurese patient - will place patient was ASV mode of ventilation (3) CAP (community acquired pneumonia): Qualifiers: Laterality: unspecified laterality Qualified Code(s): J18.9 - Pneumonia, unspecified organism Code(s): J18.9 - Pneumonia, unspecified organism Status: Acute Assessment and Plan: bilateral diffuse infiltrates likely pneumonia /aspiration pneumonitis - vent settings as above - antibiotics as above (4) COPD (chronic obstructive pulmonary disease): Qualifiers: COPD type: unspecified COPD Qualified Code(s): J44.9 - Chronic obstructive pulmonary disease, unspecified Code(s): J44.9 - Chronic obstructive pulmonary disease, unspecified Status: Chronic Assessment and Plan: patient was history of severe COPD, [facility] does not [facility] it in to her daughters. - Continue bronchodilators, continue steroids, continue mechanical ventilation and antibiotics (5) A-fib: Qualifiers: Atrial fibrillation type: unspecified chronic Qualified Code(s): I48.20 - Chronic atrial fibrillation, unspecified Code(s): I48.91 - Unspecified atrial fibrillation Status: Chronic Assessment and Plan: currently in sinus rhythm, rate controlled, will continue to monitor (6) Cirrhosis: Qualifiers: Ascites presence: with ascites Hepatic cirrhosis type: unspecified hepatic cirrhosis Qualified Code(s): K74.60 - Unspecified cirrhosis of liver; R18.8 - Other ascites Code(s): K74.60 - Unspecified cirrhosis of liver Status: Chronic Assessment and Plan: LFTs are within normal limits - ammonia levels < 9 (7) DM (diabetes mellitus): Code(s): E11.9 - Type 2 diabetes mellitus without complications Status: Chronic Assessment and Plan: history of diabetes, on sliding scale insulin Accu-Cheks, maintain blood sugars < 180 - blood sugars have been elevated, will start small dose Levemir - hemoglobin A1c on 03/24/2019 was 5.4 (8) Dietary counseling and surveillance: Code(s): Z71.3 - Dietary counseling and surveillance Status: Acute Assessment and Plan: tolerating tube feeds, - Glucerna at goal (9) HTN (hypertension) with goal to be determined: Code(s): I10 - Essential (primary) hypertension Status: Chronic Assessment and Plan: started on home antihypertensive meds and diuretics - ad
[2019-03-29 12:32] LABS: Glucose Point of Care 261 (65-105)
--- NOTE | 2019-03-29 16:39 | PM.IMPN ---
Progress Note: A&P Assessment and Plan (1) Septic shock: Code(s): A41.9 - Sepsis, unspecified organism; R65.21 - Severe sepsis with septic shock Status: Acute Assessment and Plan: Patient with severe septic shock secondary pneumonia patient was on pressor now off patient is seen by printed circuit layout taper and appreciate, blood, culture negative so far and sputum is growing normal christa. (2) DVT prophylaxis: Code(s): Z29.9 - Encounter for prophylactic measures, unspecified Status: Acute Assessment and Plan: on lovenox (3) Acute respiratory failure with hypoxia and hypercapnia: Code(s): J96.01 - Acute respiratory failure with hypoxia; J96.02 - Acute respiratory failure with hypercapnia Status: Acute Assessment and Plan: Intubated in icu, on vent, breathing treatments, iv steroids, iv rocephin and iv zithromax. Respiratory status improving, weaning off vent. (4) Pulmonary edema: Qualifiers: Chronicity: acute Qualified Code(s): J81.0 - Acute pulmonary edema Code(s): J81.1 - Chronic pulmonary edema Status: Resolved Assessment and Plan: was on iv lasix on admission, (5) Hyperlipidemia: Code(s): E78.5 - Hyperlipidemia, unspecified Status: Chronic Assessment and Plan: Hold atorvastatin (6) HTN (hypertension) with goal to be determined: Code(s): I10 - Essential (primary) hypertension Status: Chronic Assessment and Plan: off vasopressors (7) CAP (community acquired pneumonia): Qualifiers: Laterality: unspecified laterality Qualified Code(s): J18.9 - Pneumonia, unspecified organism Code(s): J18.9 - Pneumonia, unspecified organism Status: Acute Assessment and Plan: Patient in intubated in icu pt is on i rocephin, iv zithromax and iv steroids (8) A-fib: Qualifiers: Atrial fibrillation type: unspecified chronic Qualified Code(s): I48.20 - Chronic atrial fibrillation, unspecified Code(s): I48.91 - Unspecified atrial fibrillation Status: Chronic Assessment and Plan: Currently in sinus rhythm. (9) COPD (chronic obstructive pulmonary disease): Qualifiers: COPD type: unspecified COPD Qualified Code(s): J44.9 - Chronic obstructive pulmonary disease, unspecified Code(s): J44.9 - Chronic obstructive pulmonary disease, unspecified Status: Chronic Assessment and Plan: Continue with nebulizer treatments. (10) Schizophrenia: Code(s): F20.9 - Schizophrenia, unspecified Status: Chronic (11) Cirrhosis: Qualifiers: Ascites presence: with ascites Hepatic cirrhosis type: unspecified hepatic cirrhosis Qualified Code(s): K74.60 - Unspecified cirrhosis of liver; R18.8 - Other ascites Code(s): K74.60 - Unspecified cirrhosis of liver Status: Chronic Assessment and Plan: Continue with her lactulose through the OG tube. She is also on metolazone. (12) DM (diabetes mellitus): Code(s): E11.9 - Type 2 diabetes mellitus without complications Status: Chronic Assessment and Plan: Accu-Cheks every 6 hours. Sliding scale insulin. Check A1c. (13) Dementia: Code(s): F03.90 - Unspecified dementia without behavioral disturbance Status: Chronic Assessment and Plan: Continue with her Namenda per Og tube Subjective Date/time seen: 03/29/19 16:39 Interval history: chief complaint: acute respiratory failure with hypoxia, pneumonia /possible ARDS 03/29/2019: Patient seen and examined the ICU, is intubated, on CMV mode of ventilation, 30% FiO2, peep of 8. Sedated with Versed 2 mg/hr min infusion. Patient opens her eyes, follows simple commands in all extremities. Urine output has been adequate, patient has been off Levophed, WBC count has normalized. Patient is hemodynamically stable, afebrile, patient is seen by printed circuit layout taper and appreciate Review
[2019-03-29 17:39] LABS: Glucose Point of Care 219 (65-105)
[2019-03-29] MEDS: ATORVASTATIN 40 MG TABLET 80 MG PO (20:08)
[2019-03-29] MEDS: DONEPEZIL HCL 5 MG TABLET PO (20:08)
[2019-03-29 20:23] LABS: Glucose Point of Care 198 (65-105)
[2019-03-29 23:37] LABS: Glucose Point of Care 229 (65-105)
[2019-03-30] VITALS (29 sets, daily range): BP systolic 116–162; BP diastolic 56–97; PULSE 46–95; RESP 12–24; TEMP 36.5–37.1; O2SAT 92–100
[2019-03-30] MEDS: MIDAZOLAM HCL 50 MG in DEXTROSE 5% 90 ML 6 MG IV CONT (00:48)
[2019-03-30] MEDS: ALBUTEROL SULFATE NEB 2.5 MG/0.5 ML INH INHALATION ×4 (02:42→19:44)
[2019-03-30] MEDS: IPRATROPIUM BR 0.02% INH SOLN 0.5 MG/2.5 ML VIAL INHALATION ×4 (02:43→19:44)
[2019-03-30 04:11] LABS: Hematocrit 37.3 % (37.0-47.0); Hemoglobin 10.8 g/dL (12.0-15.0); Mean Corpuscular Hemoglobin 28.1 pg (26-34); Mean Corpuscular Volume 96.9 fl (80-100); Platelet Count Result 333 k/mm3 (150-375); Red Blood Count 3.85 M/mm3 (4.2-5.4); White Blood Count 9.2 K/mm3 (4.5-10.0)
[2019-03-30 04:27] LABS: Alanine Aminotransferase 16 U/L (4-35); Alkaline Phosphatase 80 U/L (38-126); Aspartate Amino Transferase 14 U/L (14-36); Bilirubin,Total 0.3 mg/dL (0.2-1.3); Blood Urea Nitrogen 32 mg/dL (7-17); Calcium 8.5 mg/dL (8.4-10.2); Carbon Dioxide 29 mmol/L (22-30); Chloride 96 mmol/L (98-107); Estimated CRCL calculation 76 ml/min; Estimated Glomerular Filt Rate > 60; Glucose 285 mg/dL (65-105); Magnesium 2.1 mg/dL (1.6-2.3); Phosphorus 3.5 mg/dL (2.5-4.5); Potassium 4.1 mmol/L (3.4-5.0); Sodium 133 mmol/L (137-145)
[2019-03-30 04:28] LABS: Lactic Acid 1.8 mmol/L (0.7-2.1)
[2019-03-30 05:25] LABS: Glucose Point of Care 262 (65-105)
[2019-03-30 05:26] LABS: Alveolar/Arterial O2 Gradient 90.8 mmHg; Base Excess ABG 5.6 mEq/l (+/-2.0); Carboxyhemoglobin 0.7 % THb (0-2.0); Fractional Inspired Oxygen 30 %; HCO3 ABG 30.5 mEq/l (22.0-26.0); Methemoglobin ABG 0.3 %THb (0-1.5); Oxygen Content ABG 16.2 %vol (16.0-22.0); Oxygen Saturation ABG 94.3 % (95.0-100.0); Oxyhemoglobin 92.2 % THb (90.0-100.0); PCO2 ABG 46.1 mmHg (35.0-45.0); PO2 ABG 68.9 mmHg (80.0-100.0); Reduced Hemoglobin 6.8 %THb (0-5.0); Total Hemoglobin 12.5 g/dL (12.0-18.0); pH ABG 7.439 (7.350-7.450)
[2019-03-30] MEDS: methylPREDNISolone SOD SUCC 40 MG VIAL IV PUSH ×2 (05:26→18:11)
[2019-03-30] MEDS: INSULIN ASPART (*BKC) 100 UNITS/ML SUB-Q (05:26)
[2019-03-30 05:27] LABS: Device VENTILATOR; Modified Allen's Test Pass; Site Drawn RIGHT RADIAL
[2019-03-30 05:29] LABS: Arterial Blood Gas Minute Volume 6 LPM; Arterial Blood Gas PEEP 8 cmH2O; Arterial Blood Gas Vent Mode ASV
--- NOTE | 2019-03-30 08:00 | WPDINTPN ---
Progress Note: A&P Assessment and Plan (1) Septic shock: Code(s): A41.9 - Sepsis, unspecified organism; R65.21 - Severe sepsis with septic shock Status: Acute Assessment and Plan: OFF LEVOPHED: patient presented with pneumonia, acute respiratory failure, ARDS physiology - patient started on ceftriaxone and azithromycin - blood cultures are negative x2, sputum cultures growing Normal respiratory christa - echocardiogram done on 03/25/2019 showed hyperdynamic LV systolic function, EF 74%, right ventricular chamber severely enlarged, right atrial chamber dimension is severely enlarged. Moderate tricuspid valve regurg, severe pulmonary hypertension with pulmonary artery systolic pressures of 94 mmHg. (2) Acute respiratory failure with hypoxia and hypercapnia: Code(s): J96.01 - Acute respiratory failure with hypoxia; J96.02 - Acute respiratory failure with hypercapnia Status: Acute Assessment and Plan: Patient with acute hypercapnic respiratory failure likely related to COPD, aspiration pneumonia, CHF exacerbation, ARDS physiology. Pulmonary V/Q scan on 03/20/2019 showed low probability pulmonary embolism., air trapping, could be COPD. Lower extremity venous Dopplers on 03/20/2019 with no DVT in bilateral lower extremities - tolerating ASV mode of ventilation - Chest x-ray and ABGs reviewed, - continue bronchodilators - continue azithromycin and ceftriaxone - continue diurese patient given a severe pulmonary hypertension and CHF. - Will change Versed to Precedex infusion and place patient on SBT and evaluate for extubation (3) CAP (community acquired pneumonia): Qualifiers: Laterality: unspecified laterality Qualified Code(s): J18.9 - Pneumonia, unspecified organism Code(s): J18.9 - Pneumonia, unspecified organism Status: Acute Assessment and Plan: bilateral diffuse infiltrates likely pneumonia /aspiration pneumonitis - vent settings as above - antibiotics as above (4) COPD (chronic obstructive pulmonary disease): Qualifiers: COPD type: unspecified COPD Qualified Code(s): J44.9 - Chronic obstructive pulmonary disease, unspecified Code(s): J44.9 - Chronic obstructive pulmonary disease, unspecified Status: Chronic Assessment and Plan: patient was history of severe COPD, is supposed to be on oxygen at the [facility] but she does not wear it in to her daughters. - Continue bronchodilators, continue steroids, continue mechanical ventilation and antibiotics - wean steroids (5) A-fib: Qualifiers: Atrial fibrillation type: unspecified chronic Qualified Code(s): I48.20 - Chronic atrial fibrillation, unspecified Code(s): I48.91 - Unspecified atrial fibrillation Status: Chronic Assessment and Plan: currently in sinus rhythm, rate controlled, will continue to monitor (6) Cirrhosis: Qualifiers: Ascites presence: with ascites Hepatic cirrhosis type: unspecified hepatic cirrhosis Qualified Code(s): K74.60 - Unspecified cirrhosis of liver; R18.8 - Other ascites Code(s): K74.60 - Unspecified cirrhosis of liver Status: Chronic Assessment and Plan: LFTs are within normal limits - ammonia levels < 9 (7) DM (diabetes mellitus): Code(s): E11.9 - Type 2 diabetes mellitus without complications Status: Chronic Assessment and Plan: history of diabetes, on sliding scale insulin Accu-Cheks, maintain blood sugars < 180 - blood sugars have been elevated, continue Levemirr - hemoglobin A1c on 03/24/2019 was 5.4 (8) Dietary counseling and surveillance: Code(s): Z71.3 - Dietary counseling and surveillance Status: Acute Assessment and Plan: tolerating tube feeds, - Glucerna at goal (9) HTN (hypertension) with goal to be determined: Code(s): I10 - Essential (primary) hypertension Status: Chronic
[2019-03-30] MEDS: DORNASE ALFA INH SOLN 1 MG/ML 2.5 ML AMP 2.5 MG INHALATION ×2 (08:02→19:44)
[2019-03-30] MEDS: PANTOPRAZOLE SODIUM IV 40 MG VIAL IV PUSH (08:17)
[2019-03-30] MEDS: SPIRONOLACTONE 25 MG TABLET PO (08:17)
[2019-03-30] MEDS: AMLODIPINE BESYLATE 5 MG TABLET 10 MG PO (08:17)
[2019-03-30] MEDS: ASPIRIN 325 MG TABLET PO (08:17)
[2019-03-30] MEDS: FERROUS SULFATE 324 MG TABLET PO (08:17)
[2019-03-30] MEDS: hydrALAZINE HCL 25 MG TABLET PO ×3 (08:17→20:03)
[2019-03-30] MEDS: FUROSEMIDE INJ 40 MG/4 ML VIAL IV PUSH (08:17)
[2019-03-30] MEDS: MEMANTINE 5 MG TABLET PO (08:17)
[2019-03-30] MEDS: ENOXAPARIN 40 MG/0.4 ML SYRINGE SUB-Q (08:17)
[2019-03-30] MEDS: INSULIN DETEMIR 100 UNITS/ML 18 UNITS SUB-Q ×2 (08:21→20:02)
[2019-03-30] MEDS: PHARMACIST COMMUNICATION ORDER 1 EACH XX (08:31)
--- NOTE | 2019-03-30 10:59 | PCDIET ---
ICU Rounding Note: Patient previously tolerating tube feedings at goal rate; currently on hold for breathing trial. Last recorded weight is 75.3kg which is stable. Bowel Motility: BM x 1 on 03/28/19. Labs Reviewed: Glu (262), BUN (32), Cr (0.6), Na (133), Alb (3.0) Meds Noted: Rocephin, Precedex, Ferrous Sulfate, Lasix, Novolog, Levemir, Solu Medrol, Levophed, Protonix, Vancomycin Additional Notes: No documented pressure sores. Recommend resuming tube feedings if unable to extubate. Following daily in ICU rounds. Assessing/reassessing every Wednesday/Wednesday.
[2019-03-30 11:44] LABS: Alveolar/Arterial O2 Gradient 94.8 mmHg; Base Excess ABG 7.7 mEq/l (+/-2.0); Fractional Inspired Oxygen 30 %; HCO3 ABG 31.9 mEq/l (22.0-26.0); Oxygen Content ABG 15.6 %vol (16.0-22.0); Oxygen Saturation ABG 94.8 % (95.0-100.0); Oxyhemoglobin 92.5 % THb (90.0-100.0); PCO2 ABG 43.3 mmHg (35.0-45.0); PO2 ABG 68.2 mmHg (80.0-100.0); PO2 FiO2 Ratio Arterial Blood 2.27 %; pH ABG 7.485 (7.350-7.450)
[2019-03-30 11:45] LABS: Arterial Blood Gas PEEP 5 cmH2O; Arterial Blood Gas Pressure Support 8 cmH2O; Arterial Blood Gas Vent Mode SPONTANEOUS; Device VENTILATOR; Modified Allen's Test Pass; Site Drawn LEFT RADIAL
[2019-03-30 12:22] LABS: Glucose Point of Care 147 (65-105)
[2019-03-30 18:21] LABS: Glucose Point of Care 66 (65-105)
[2019-03-30] MEDS: DONEPEZIL HCL 5 MG TABLET PO (20:03)
[2019-03-30] MEDS: ATORVASTATIN 40 MG TABLET 80 MG PO (20:03)
[2019-03-30 20:06] LABS: Glucose Point of Care 153 (65-105)
[2019-03-31] VITALS (16 sets, daily range): BP systolic 107–168; BP diastolic 57–84; PULSE 51–92; RESP 16–22; TEMP 36.4–37.2; O2SAT 90–99
--- NOTE | 2019-03-31 02:00 | PCRCNOTE ---
pt refuses on occasion due to agitation
[2019-03-31] MEDS: methylPREDNISolone SOD SUCC 40 MG VIAL IV PUSH ×2 (06:21→17:31)
[2019-03-31 06:31] LABS: Glucose Point of Care 97 (65-105)
[2019-03-31] MEDS: ALBUTEROL SULFATE NEB 2.5 MG/0.5 ML INH INHALATION ×2 (07:48→19:59)
[2019-03-31] MEDS: IPRATROPIUM BR 0.02% INH SOLN 0.5 MG/2.5 ML VIAL INHALATION ×2 (07:49→19:59)
[2019-03-31] MEDS: DORNASE ALFA INH SOLN 1 MG/ML 2.5 ML AMP 2.5 MG INHALATION ×2 (07:49→19:59)
[2019-03-31] MEDS: AMLODIPINE BESYLATE 5 MG TABLET 10 MG PO (08:19)
[2019-03-31] MEDS: FERROUS SULFATE 324 MG TABLET PO (08:19)
[2019-03-31] MEDS: hydrALAZINE HCL 25 MG TABLET PO ×4 (08:19→20:21)
[2019-03-31] MEDS: ASPIRIN 325 MG TABLET PO (08:19)
[2019-03-31] MEDS: MEMANTINE 5 MG TABLET PO (08:19)
[2019-03-31] MEDS: SPIRONOLACTONE 25 MG TABLET PO (08:19)
[2019-03-31] MEDS: ENOXAPARIN 40 MG/0.4 ML SYRINGE SUB-Q (08:19)
[2019-03-31] MEDS: PANTOPRAZOLE SODIUM IV 40 MG VIAL IV PUSH (08:19)
[2019-03-31] MEDS: FUROSEMIDE INJ 40 MG/4 ML VIAL IV PUSH (08:19)
--- NOTE | 2019-03-31 09:16 | WPDINTPN ---
Progress Note: A&P Assessment and Plan (1) Septic shock: Code(s): A41.9 - Sepsis, unspecified organism; R65.21 - Severe sepsis with septic shock Status: Acute Assessment and Plan: RESOLVED: OFF LEVOPHED: patient presented with pneumonia, acute respiratory failure, ARDS physiology - ceftriaxone and azithromycin ( WILL STOP AFTER TODAY'S DOSE) - blood cultures are negative x2, sputum cultures growing Normal respiratory christa - echocardiogram done on 03/25/2019 showed hyperdynamic LV systolic function, EF 74%, right ventricular chamber severely enlarged, right atrial chamber dimension is severely enlarged. Moderate tricuspid valve regurg, severe pulmonary hypertension with pulmonary artery systolic pressures of 94 mmHg. (2) Acute respiratory failure with hypoxia and hypercapnia: Code(s): J96.01 - Acute respiratory failure with hypoxia; J96.02 - Acute respiratory failure with hypercapnia Status: Acute Assessment and Plan: PATIENT SUCCESSFULLY EXTUBATED 03/30/2019. REMAINS ON 2 L NASAL CANNULA WITH GOOD O2 SATS - Patient with acute hypercapnic respiratory failure likely related to COPD, aspiration pneumonia, CHF exacerbation, ARDS physiology. Pulmonary V/Q scan on 03/20/2019 showed low probability pulmonary embolism., air trapping, could be COPD. Lower extremity venous Dopplers on 03/20/2019 with no DVT in bilateral lower extremities - continue bronchodilators - CONTINUE HOME DIURETIC MEDICATIONS - PATIENT IS OFF PRECEDEX INFUSION (3) CAP (community acquired pneumonia): Qualifiers: Laterality: unspecified laterality Qualified Code(s): J18.9 - Pneumonia, unspecified organism Code(s): J18.9 - Pneumonia, unspecified organism Status: Acute Assessment and Plan: bilateral diffuse infiltrates likely pneumonia /aspiration pneumonitis - antibiotics as above (4) COPD (chronic obstructive pulmonary disease): Qualifiers: COPD type: unspecified COPD Qualified Code(s): J44.9 - Chronic obstructive pulmonary disease, unspecified Code(s): J44.9 - Chronic obstructive pulmonary disease, unspecified Status: Chronic Assessment and Plan: patient was history of severe COPD, is supposed to be on oxygen at the [place] but she does not wear it in to her daughters. - Continue bronchodilators, continue steroids, and antibiotics - wean steroids (5) A-fib: Qualifiers: Atrial fibrillation type: unspecified chronic Qualified Code(s): I48.20 - Chronic atrial fibrillation, unspecified Code(s): I48.91 - Unspecified atrial fibrillation Status: Chronic Assessment and Plan: currently in sinus rhythm, rate controlled, will continue to monitor (6) Cirrhosis: Qualifiers: Ascites presence: with ascites Hepatic cirrhosis type: unspecified hepatic cirrhosis Qualified Code(s): K74.60 - Unspecified cirrhosis of liver; R18.8 - Other ascites Code(s): K74.60 - Unspecified cirrhosis of liver Status: Chronic Assessment and Plan: LFTs are within normal limits - ammonia levels < 9 on admission (7) DM (diabetes mellitus): Code(s): E11.9 - Type 2 diabetes mellitus without complications Status: Chronic Assessment and Plan: history of diabetes, on sliding scale insulin Accu-Cheks, maintain blood sugars < 180 - blood sugars have been low, hold Levemir - hemoglobin A1c on 03/24/2019 was 5.4 (8) Dietary counseling and surveillance: Code(s): Z71.3 - Dietary counseling and surveillance Status: Acute Assessment and Plan: patient passed her swallow evaluation, started on a diet per recommendations from speech therapy (9) HTN (hypertension) with goal to be determined: Code(s): I10 - Essential (primary) hypertension Status: Chronic Assessment and Plan: started on home antihypertensive meds and diuretics - continue hydralazi
--- NOTE | 2019-03-31 10:53 | PCDIET ---
Nutrition Follow-Up Complete: Nutrition Diagnosis: Inadequate oral intake related to oral intubation as evidenced by need for enteral feedings. Nutrition Goal: Patient to meet estimated needs. Goal met. Patient advanced to minced and moist, diabetic diet. Ate 75% of dinner last night and 100% of breakfast except fruit. Requesting chicken and iced tea at this time. Agree with present diet. Will continue to monitor with same goal. Last recorded weight is 75.2 kg which is stable. Bowel Motility: Small liquid bowel movement today. Labs Reviewed: Glu (97) Meds Noted: Rocephin, Ferrous Sulfate, Lasix, Novolog, Levemir, Solu Medrol, Protonix, Vancomycin Additional Notes: No documented pressure ulcers. Nutrition Monitoring and Evaluation: Follow up in 5 days.
--- NOTE | 2019-03-31 11:00 | PC.NURSE ---
This patient, Sendy Malin, was received from IMU on 03/31/19 at 1101. Personal belongings list checked and signed. Patient/family oriented to unit policies and routines
[2019-03-31 11:30] LABS: Glucose Point of Care 97 (65-105)
--- NOTE | 2019-03-31 11:39 | PC.NURSE ---
This patient, Sendy Malin, was transferred to [[id number]] on 03/31/19 at 1139. Personal belongings sent with patient. Belongings list checked and signed with receiving [ ]. Report given to [ALMA DELIA Murray @ [phone] ]. Appropriate documentation sent with patient.
--- NOTE | 2019-03-31 13:08 | PCRCNOTE ---
PT REFUSED TX, DR CEDENO NOTIFIED.
[2019-03-31 14:04] LABS: Vancomycin Trough 14.6 ug/mL (10.0-20.0)
--- NOTE | 2019-03-31 16:30 | PM.IMPN ---
Progress Note: A&P Assessment and Plan (1) Septic shock: Code(s): A41.9 - Sepsis, unspecified organism; R65.21 - Severe sepsis with septic shock Status: Acute Assessment and Plan: 03/31/19 16:30 Patient seen and examined the ICU, was intubated, had been on CMV mode of ventilation, 30% FiO2, peep of 8. Sedated with Versed 2 mg/hr min infusion. patient was taken off levophed, and was extubated on and patient is out of ICU and on medical floor, patient is a poor historian and difficult to get regarding her lung disease chest x-ray shows stable diffuse lung disease, consistent with pulmonary edema and/or pneumonia and/or acute respiratory distress syndrome. patient stats she stopp smoking several yrs ago, patient is being treated with vancomycin, rocephine, zothromax, prednisone and updraft, blood, culture negative so far and sputum is growing normal christa. (2) DVT prophylaxis: Code(s): Z29.9 - Encounter for prophylactic measures, unspecified Status: Acute Assessment and Plan: on lovenox (3) Acute respiratory failure with hypoxia and hypercapnia: Code(s): J96.01 - Acute respiratory failure with hypoxia; J96.02 - Acute respiratory failure with hypercapnia Status: Acute Assessment and Plan: plan is above (4) Pulmonary edema: Qualifiers: Chronicity: acute Qualified Code(s): J81.0 - Acute pulmonary edema Code(s): J81.1 - Chronic pulmonary edema Status: Resolved Assessment and Plan: was on iv lasix on admission, (5) Hyperlipidemia: Code(s): E78.5 - Hyperlipidemia, unspecified Status: Chronic Assessment and Plan: Hold atorvastatin (6) HTN (hypertension) with goal to be determined: Code(s): I10 - Essential (primary) hypertension Status: Chronic Assessment and Plan: off vasopressors (7) CAP (community acquired pneumonia): Qualifiers: Laterality: unspecified laterality Qualified Code(s): J18.9 - Pneumonia, unspecified organism Code(s): J18.9 - Pneumonia, unspecified organism Status: Acute Assessment and Plan: Patient in intubated in icu pt is on i rocephin, iv zithromax and iv steroids (8) A-fib: Qualifiers: Atrial fibrillation type: unspecified chronic Qualified Code(s): I48.20 - Chronic atrial fibrillation, unspecified Code(s): I48.91 - Unspecified atrial fibrillation Status: Chronic Assessment and Plan: Currently in sinus rhythm. (9) COPD (chronic obstructive pulmonary disease): Qualifiers: COPD type: unspecified COPD Qualified Code(s): J44.9 - Chronic obstructive pulmonary disease, unspecified Code(s): J44.9 - Chronic obstructive pulmonary disease, unspecified Status: Chronic Assessment and Plan: Continue with nebulizer treatments. will consult Dr. Marcos for further recommendations (10) Schizophrenia: Code(s): F20.9 - Schizophrenia, unspecified Status: Chronic (11) Cirrhosis: Qualifiers: Ascites presence: with ascites Hepatic cirrhosis type: unspecified hepatic cirrhosis Qualified Code(s): K74.60 - Unspecified cirrhosis of liver; R18.8 - Other ascites Code(s): K74.60 - Unspecified cirrhosis of liver Status: Chronic Assessment and Plan: Continue with her lactulose through the OG tube. She is also on metolazone. (12) DM (diabetes mellitus): Code(s): E11.9 - Type 2 diabetes mellitus without complications Status: Chronic Assessment and Plan: Accu-Cheks every 6 hours. Sliding scale insulin. Check A1c. (13) Dementia: Code(s): F03.90 - Unspecified dementia without behavioral disturbance Status: Chronic Assessment and Plan: Continue with her Namenda per Og tube Subjective Date/time seen: 03/31/19 16:30 Patient seen and examined the ICU, was intubated, had been on CMV mode of ventilation, 30% FiO2,
[2019-03-31] MEDS: ATORVASTATIN 40 MG TABLET 80 MG PO (20:21)
[2019-03-31] MEDS: DONEPEZIL HCL 5 MG TABLET PO (20:22)
[2019-03-31] MEDS: ACETAMINOPHEN 325 MG TABLET 650 MG PO (20:32)
[2019-03-31 20:46] LABS: Glucose Point of Care 96 (65-105)
--- NOTE | 2019-04-01 01:45 | PCRCNOTE ---
Pt refused tx.
[2019-04-01 06:00] VITALS: BP 148/94; PULSE 88; RESP 20; TEMP 36.4; O2SAT 97
[2019-04-01 06:42] LABS: Glucose Point of Care 287 (65-105)
[2019-04-01] MEDS: methylPREDNISolone SOD SUCC 40 MG VIAL IV PUSH (06:48)
[2019-04-01 06:56] LABS: Hematocrit 42.2 % (37.0-47.0); Hemoglobin 12.6 g/dL (12.0-15.0); Mean Corpuscular HGB Conc 29.9 g/dl (32-36); Mean Corpuscular Hemoglobin 28.8 pg (26-34); Mean Corpuscular Volume 96.6 fl (80-100); Mean Platelet Volume 9.8 fl (7.4-10.4); Platelet Count Result 460 k/mm3 (150-375); Red Blood Count 4.37 M/mm3 (4.2-5.4); Red Cell Distribution Width 15.5 % (11.5-14.5); White Blood Count 8.3 K/mm3 (4.5-10.0)
[2019-04-01 07:12] LABS: Blood Urea Nitrogen 28 mg/dL (7-17); Calcium 8.2 mg/dL (8.4-10.2); Carbon Dioxide 28 mmol/L (22-30); Chloride 94 mmol/L (98-107); Estimated CRCL calculation 76 ml/min; Estimated Glomerular Filt Rate > 60; Glucose 283 mg/dL (65-105); Potassium 4.1 mmol/L (3.4-5.0); Sodium 132 mmol/L (137-145)
[2019-04-01] MEDS: INSULIN ASPART (*BKC) 100 UNITS/ML SUB-Q ×3 (07:27→20:32)
[2019-04-01] MEDS: AMLODIPINE BESYLATE 5 MG TABLET 10 MG PO (08:23)
[2019-04-01] MEDS: PANTOPRAZOLE SODIUM IV 40 MG VIAL IV PUSH (08:24)
[2019-04-01] MEDS: ASPIRIN 325 MG TABLET PO (08:25)
[2019-04-01] MEDS: FERROUS SULFATE 324 MG TABLET PO (08:26)
[2019-04-01] MEDS: hydrALAZINE HCL 25 MG TABLET PO ×4 (08:26→20:28)
[2019-04-01] MEDS: FUROSEMIDE INJ 40 MG/4 ML VIAL IV PUSH (08:26)
[2019-04-01] MEDS: SPIRONOLACTONE 25 MG TABLET PO (08:27)
[2019-04-01] MEDS: ALBUTEROL SULFATE NEB 2.5 MG/0.5 ML INH INHALATION (10:23)
[2019-04-01] MEDS: IPRATROPIUM BR 0.02% INH SOLN 0.5 MG/2.5 ML VIAL INHALATION (10:24)
[2019-04-01 10:25] VITALS: PULSE 71; RESP 20; O2SAT 89
[2019-04-01 12:16] LABS: Glucose Point of Care 490 (65-105)
--- NOTE | 2019-04-01 13:10 | PM.IMPN ---
Progress Note: A&P Assessment and Plan (1) Septic shock: Code(s): A41.9 - Sepsis, unspecified organism; R65.21 - Severe sepsis with septic shock Status: Acute Assessment and Plan: 04/01 Patient seen and examined the ICU, was intubated, had been on CMV mode of ventilation, 30% FiO2, peep of 8. Sedated with Versed 2 mg/hr min infusion. patient was taken off levophed, and was extubated on and patient is out of ICU and on medical floor, patient is a poor historian and difficult to get regarding her lung disease chest x-ray shows stable diffuse lung disease, consistent with pulmonary edema and/or pneumonia and/or acute respiratory distress syndrome. patient stats she stop smoking several yrs ago, patient is being treated with vancomycin, rocephine, zothromax, prednisone and updraft, blood, culture negative so far and sputum is growing normal christa. Patient is not cooperative with her IV medication and and neb treatment patient wants ice cream if we were to administer and a for treatment, patient has agreed to take her medication and had treatment will continue to monitor and repeat checks x-ray on Wednesday and possibly discharge her if remains clinically stable (2) DVT prophylaxis: Code(s): Z29.9 - Encounter for prophylactic measures, unspecified Status: Acute Assessment and Plan: on lovenox (3) Acute respiratory failure with hypoxia and hypercapnia: Code(s): J96.01 - Acute respiratory failure with hypoxia; J96.02 - Acute respiratory failure with hypercapnia Status: Acute Assessment and Plan: plan is above (4) Pulmonary edema: Qualifiers: Chronicity: acute Qualified Code(s): J81.0 - Acute pulmonary edema Code(s): J81.1 - Chronic pulmonary edema Status: Resolved Assessment and Plan: was on iv lasix on will continue and monitor (5) Hyperlipidemia: Code(s): E78.5 - Hyperlipidemia, unspecified Status: Chronic Assessment and Plan: Hold atorvastatin (6) HTN (hypertension) with goal to be determined: Code(s): I10 - Essential (primary) hypertension Status: Chronic Assessment and Plan: off vasopressors (7) CAP (community acquired pneumonia): Qualifiers: Laterality: unspecified laterality Qualified Code(s): J18.9 - Pneumonia, unspecified organism Code(s): J18.9 - Pneumonia, unspecified organism Status: Acute Assessment and Plan: Patient in intubated in icu pt is on i rocephin, iv zithromax and iv steroids (8) A-fib: Qualifiers: Atrial fibrillation type: unspecified chronic Qualified Code(s): I48.20 - Chronic atrial fibrillation, unspecified Code(s): I48.91 - Unspecified atrial fibrillation Status: Chronic Assessment and Plan: Currently in sinus rhythm. (9) COPD (chronic obstructive pulmonary disease): Qualifiers: COPD type: unspecified COPD Qualified Code(s): J44.9 - Chronic obstructive pulmonary disease, unspecified Code(s): J44.9 - Chronic obstructive pulmonary disease, unspecified Status: Chronic Assessment and Plan: Continue with nebulizer treatments. will consult Dr. Marcos for further recommendations (10) Schizophrenia: Code(s): F20.9 - Schizophrenia, unspecified Status: Chronic Assessment and Plan: Patient is difficult to communicate and not cooperative with her treatment (11) Cirrhosis: Qualifiers: Ascites presence: with ascites Hepatic cirrhosis type: unspecified hepatic cirrhosis Qualified Code(s): K74.60 - Unspecified cirrhosis of liver; R18.8 - Other ascites Code(s): K74.60 - Unspecified cirrhosis of liver Status: Chronic Assessment and Plan: Continue with her lactulose through the OG tube. She is also on metolazone. (12) DM (diabetes mellitus): Code(s): E11.9 - Type 2 diabetes mellitus without complications Status:
[2019-04-01] MEDS: INSULIN GLARGINE (*BKC) 100 UNITS/ML 20 UNITS SUB-Q (13:22)
[2019-04-01 15:11] VITALS: BP 147/65; PULSE 82; RESP 18; TEMP 36.3; O2SAT 98
[2019-04-01 16:49] LABS: Glucose Point of Care 285 (65-105)
[2019-04-01 20:22] LABS: Glucose Point of Care 202 (65-105)
[2019-04-01] MEDS: DONEPEZIL HCL 5 MG TABLET PO (20:28)
[2019-04-01] MEDS: ATORVASTATIN 40 MG TABLET 80 MG PO (20:28)
[2019-04-01 22:00] VITALS: BP 136/67; PULSE 91; RESP 20; TEMP 36.6; O2SAT 93
[2019-04-01 23:52] LABS: Glucose Point of Care 139 (65-105)
[2019-04-02] VITALS (11 sets, daily range): BP systolic 138–147; BP diastolic 71–90; PULSE 78–103; RESP 16–20; TEMP 36.5–36.9; O2SAT 80–99
[2019-04-02] MEDS: ACETAMINOPHEN 325 MG TABLET 650 MG PO (04:28)
[2019-04-02 07:50] LABS: Glucose Point of Care 141 (65-105)
[2019-04-02] MEDS: IPRATROPIUM BR 0.02% INH SOLN 0.5 MG/2.5 ML VIAL INHALATION ×2 (08:49→14:52)
[2019-04-02] MEDS: ALBUTEROL SULFATE NEB 2.5 MG/0.5 ML INH INHALATION ×2 (08:49→14:52)
[2019-04-02] MEDS: BUDESONIDE RESPULE NEB 0.5 MG/2 ML AMP INHALATION (08:49)
[2019-04-02] MEDS: DORNASE ALFA INH SOLN 1 MG/ML 2.5 ML AMP 2.5 MG INHALATION (08:52)
[2019-04-02] MEDS: predniSONE 20 MG TABLET 40 MG PO (09:02)
[2019-04-02] MEDS: ASPIRIN 325 MG TABLET PO (09:03)
[2019-04-02] MEDS: hydrALAZINE HCL 25 MG TABLET PO ×3 (09:03→20:11)
[2019-04-02] MEDS: ENOXAPARIN 40 MG/0.4 ML SYRINGE SUB-Q (09:04)
[2019-04-02] MEDS: AMLODIPINE BESYLATE 5 MG TABLET 10 MG PO (09:04)
[2019-04-02] MEDS: FERROUS SULFATE 324 MG TABLET PO (09:05)
[2019-04-02] MEDS: INSULIN GLARGINE (*BKC) 100 UNITS/ML 20 UNITS SUB-Q (09:05)
[2019-04-02] MEDS: FUROSEMIDE INJ 40 MG/4 ML VIAL IV PUSH ×2 (09:05→16:46)
[2019-04-02] MEDS: MEMANTINE 5 MG TABLET PO (09:06)
[2019-04-02] MEDS: PANTOPRAZOLE SODIUM IV 40 MG VIAL IV PUSH (09:06)
[2019-04-02] MEDS: SPIRONOLACTONE 25 MG TABLET PO (09:07)
[2019-04-02 10:14] LABS: Hematocrit 42.7 % (37.0-47.0); Hemoglobin 12.6 g/dL (12.0-15.0); Mean Corpuscular HGB Conc 29.5 g/dl (32-36); Mean Corpuscular Hemoglobin 29.2 pg (26-34); Mean Corpuscular Volume 98.8 fl (80-100); Mean Platelet Volume 9.7 fl (7.4-10.4); Platelet Count Result 481 k/mm3 (150-375); Red Blood Count 4.32 M/mm3 (4.2-5.4); Red Cell Distribution Width 15.6 % (11.5-14.5); White Blood Count 9.2 K/mm3 (4.5-10.0)
[2019-04-02 10:25] LABS: Blood Urea Nitrogen 29 mg/dL (7-17); Carbon Dioxide 27 mmol/L (22-30); Chloride 97 mmol/L (98-107); Estimated CRCL calculation 66 ml/min; Estimated Glomerular Filt Rate > 60; Glucose 232 mg/dL (65-105); Potassium 3.7 mmol/L (3.4-5.0); Sodium 133 mmol/L (137-145)
[2019-04-02 10:33] LABS: NT Pro B Type Natriuretic Pept 4820 PG/ML (5-100)
--- NOTE | 2019-04-02 10:42 | PCPTNOTE ---
Patient refused treatment this session stating she didn't want to get up and move or do any exercises. Approached therapy in several different ways and patient continued to state she didn't want to. Will try again this afternoon.
--- NOTE | 2019-04-02 10:59 | PCRCNOTE ---
RN and care coordination are aware patient does not need a home o2 evaluation. Patient is returning back to [facility] and oxygen will be supplied there, Rn is aware patient is wearing 2L right now.
--- NOTE | 2019-04-02 11:53 | PM.DS ---
DS: Diagnosis Admitting Diagnosis Admitting Diagnosis: Pneumonia, unspecified organism DS: Summary Time Spent with Patient Time attestation: Total time spent providing and/or coordinating discharge services: DS: Data Data Completed and Pending Labs on day of discharge: Labs from last 24 hours 04/02/19 04/02/19 04/02/19 10:07 10:07 10:07 WBC 9.2 RBC 4.32 Hgb 12.6 Hct 42.7 MCV 98.8 MCH 29.2 MCHC 29.5 L RDW 15.6 H Plt Count 481 H MPV 9.7 Sodium 133 L Potassium 3.7 Chloride 97 L Carbon Dioxide 27 BUN 29 H Creatinine 0.70 Estim Creat Clear Calc 66 Estimated GFR > 60 Glucose 232 H POC Capillary Glucose Calcium 8.0 L NT-Pro-B Natriuret Pep 4820 H 04/02/19 04/01/19 04/01/19 07:47 23:47 20:17 WBC RBC Hgb Hct MCV MCH MCHC RDW Plt Count MPV Sodium Potassium Chloride Carbon Dioxide BUN Creatinine Estim Creat Clear Calc Estimated GFR Glucose POC Capillary Glucose 141 H 139 H 202 H Calcium NT-Pro-B Natriuret Pep 04/01/19 04/01/19 16:46 12:13 WBC RBC Hgb Hct MCV MCH MCHC RDW Plt Count MPV Sodium Potassium Chloride Carbon Dioxide BUN Creatinine Estim Creat Clear Calc Estimated GFR Glucose POC Capillary Glucose 285 H 490 H Calcium NT-Pro-B Natriuret Pep Discharge Plan Discharge Attending physician on discharge: Eva Morataya Consulting providers: Tanya Jama ; Jazmin Barrow Discharging Clinician: Eva Morataya Patient Disposition: [facility] Activity: as tolerated Diet: diabetic Discharge Instructions: Patient to follow up with her primary care provider as soon as possible Patient Instructions: Antibiotic Form, Heart Failure (DC), Pain Management Older Adults (DC), Owens Catheter Placement and Care (DC) Stand Alone Forms: General Discharge Information Discharge Medications: New doxycycline hyclate 100 mg tablet 100 mg PO DAILY Qty: 14 RF: 0 lidocaine [Lidoderm] 5 % Adhesive Patch,Medicated 1 patch transdermal DAILY Qty: 10 RF: 0 Continued atorvastatin 80 mg Tablet 80 mg PO HS RF: 0 haloperidol decanoate 100 mg/mL Solution 100 mg IM MONTHLY RF: 0 metolazone 5 mg Tablet 5 mg PO 3XW RF: 0 spironolactone 25 mg Tablet 25 mg PO DAILY RF: 0 furosemide 80 mg Tablet 80 mg PO DAILY RF: 0 pantoprazole 40 mg Tablet,Delayed Release (Dr/Ec) 40 mg PO QAM RF: 0 ferrous sulfate 325 mg (65 mg iron) Tablet 325 mg PO DAILY RF: 0 metformin 1,000 mg Tablet 1,000 mg PO BID RF: 0 budesonide-formoterol 80-4.5 mcg/actuation Hfa Aerosol Inhaler 2 puff INHALATION Q12H RF: 0 amlodipine 10 mg Tablet 10 mg PO DAILY RF: 0 aspirin 325 mg Tablet 325 mg PO DAILY RF: 0 acetaminophen 500 mg Tablet 1,000 mg PO Q8H RF: 0 ondansetron HCl 4 mg Tablet 4 mg PO Q8H PRN (Reason: Nausea And Vomiting) RF: 0 donepezil [Aricept] 5 mg Tablet 5 mg PO HS RF: 0 nitroglycerin 0.3 mg Tablet, Sublingual 0.3 mg SUBLINGUAL Q5-15M PRN (Reason: Pain) RF: 0 memantine [Namenda] 5 mg Tablet 5 mg PO QAM RF: 0 lactulose 10 gram/15 mL solution 45 ml PO TID RF: 0 fluticasone propion-salmeterol 113-14 mcg/actuation aerosol powdr breath activated 1 puff INHALATION BID RF: 0 Date of admission: 03/24/19 17:19 Primary Care Provider: UNKNOWN,DOCTOR Admitting Provider: Maddi Camp Attending physician on admission: Maddi Camp Condition: Critical Quality VTE Prophylaxis VTE prophylaxis: mechanical ordered
--- NOTE | 2019-04-02 12:15 | PM.IMPN ---
Progress Note: A&P Assessment and Plan (1) Septic shock: Code(s): A41.9 - Sepsis, unspecified organism; R65.21 - Severe sepsis with septic shock Status: Acute Assessment and Plan: 04/02 Patient seen and examined the ICU, was intubated, had been on CMV mode of ventilation, 30% FiO2, peep of 8. Sedated with Versed 2 mg/hr min infusion. patient was taken off levophed, and was extubated on and patient is out of ICU and on medical floor, patient is a poor historian and difficult to get regarding her lung disease chest x-ray shows stable diffuse lung disease, consistent with pulmonary edema and/or pneumonia and/or acute respiratory distress syndrome. patient stats she stop smoking several yrs ago, patient is being treated with vancomycin, rocephine, zothromax, prednisone and updraft, blood, culture negative so far and sputum is growing normal christa. Patient was not cooperative with her IV medication and and neb treatment patient wants ice cream if we were to administer for treatment, patient has agreed to take her medication and had treatment will continue to monitor and repeat checks x-ray today showed improvement in infiltrates and pulmonoary edema, D/W with plumonolgist, patient will benefit from further diureses, will continue and monitor, patient denies any chest pain shortness of breath palpitation fever or chills (2) DVT prophylaxis: Code(s): Z29.9 - Encounter for prophylactic measures, unspecified Status: Acute Assessment and Plan: on lovenox (3) Acute respiratory failure with hypoxia and hypercapnia: Code(s): J96.01 - Acute respiratory failure with hypoxia; J96.02 - Acute respiratory failure with hypercapnia Status: Acute Assessment and Plan: plan is above (4) Pulmonary edema: Qualifiers: Chronicity: acute Qualified Code(s): J81.0 - Acute pulmonary edema Code(s): J81.1 - Chronic pulmonary edema Status: Resolved Assessment and Plan: was on iv lasix on will continue and monitor (5) Hyperlipidemia: Code(s): E78.5 - Hyperlipidemia, unspecified Status: Chronic Assessment and Plan: Hold atorvastatin (6) HTN (hypertension) with goal to be determined: Code(s): I10 - Essential (primary) hypertension Status: Chronic Assessment and Plan: off vasopressors (7) CAP (community acquired pneumonia): Qualifiers: Laterality: unspecified laterality Qualified Code(s): J18.9 - Pneumonia, unspecified organism Code(s): J18.9 - Pneumonia, unspecified organism Status: Acute Assessment and Plan: Patient in intubated in icu pt is on i rocephin, iv zithromax and iv steroids (8) A-fib: Qualifiers: Atrial fibrillation type: unspecified chronic Qualified Code(s): I48.20 - Chronic atrial fibrillation, unspecified Code(s): I48.91 - Unspecified atrial fibrillation Status: Chronic Assessment and Plan: Currently in sinus rhythm. (9) COPD (chronic obstructive pulmonary disease): Qualifiers: COPD type: unspecified COPD Qualified Code(s): J44.9 - Chronic obstructive pulmonary disease, unspecified Code(s): J44.9 - Chronic obstructive pulmonary disease, unspecified Status: Chronic Assessment and Plan: Continue with nebulizer treatments. will consult Dr. Marcos for further recommendations (10) Schizophrenia: Code(s): F20.9 - Schizophrenia, unspecified Status: Chronic Assessment and Plan: Patient is difficult to communicate and not cooperative with her treatment (11) Cirrhosis: Qualifiers: Ascites presence: with ascites Hepatic cirrhosis type: unspecified hepatic cirrhosis Qualified Code(s): K74.60 - Unspecified cirrhosis of liver; R18.8 - Other ascites Code(s): K74.60 - Unspecified cirrhosis of liver Status: Chronic Assessment and Plan: Continue with her lactulose throug
[2019-04-02 12:54] LABS: Glucose Point of Care 168 (65-105)
[2019-04-02 12:54] LABS: Glucose Point of Care 250 (65-105)
--- NOTE | 2019-04-02 12:58 | PM.CNPUL ---
Assessment and Plan Assessment and plan (1) CHF (congestive heart failure): Code(s): I50.9 - Heart failure, unspecified Status: Acute Assessment and Plan: While this patient may have been suspected of having pneumonia and ARDS on admission, her clinical presentation today is consistent with acute CHF which is improving. I will repeat her 2D Echo as her first Echo was likely done while intubated, which limits some views. I will also increase her lasix to 40 mg IV Q12h. Continue Spironolactone 25 mg daily. Recommend Cardiology Consult and hold of on discharge for another 1-2 days. History of Present Illness History of Present Illness Consult date: 04/02/19 Chief complaint: Acute respiratory failure w/ hypoxia Narrative: 68 y/o female who was admitted with acute hypoxemic respiratory failure and bilateral pulmonary vascular congestion. She is now extubated and has been transferred to the medical ron. Her Echo while intubated showed a normal EF but signs of severe pulmonary hypertension. Diastolic dysfunction was not commented on. CXR showed cardiomegaly, peribronchial cuffing and classic pulmonary vascular congestion. BNP on admission was 11,400 and today is down to 4,800. She is a very poor historian but she does admit to dyspnea on exertion and orthopnea. She also has a history of Afib, COPD apparently. Review of Systems Review of Systems: All systems reviewed & are unremarkable except as noted in HPI and below PMFSH Past Medical History Medical History (Updated 04/02/19 @ 13:05 by Jazmin Barrow MD) A-fib Anxiety Cirrhosis COPD (chronic obstructive pulmonary disease) Dementia DM (diabetes mellitus) DVT (deep venous thrombosis) Encephalopathy HTN (hypertension) with goal to be determined Hyperlipidemia Schizophrenia Surgical History Surgical History (Updated 03/20/19 @ 12:43 by Regis Ayala) Surgical history unknown Social History Social History (Updated 03/24/19 @ 20:04 by Belen Harmon NP) Smoking status: Never smoker Alcohol intake: unknown Substance use: unknown Living arrangements: [facility] Additional living arrangements comments: Pt lives at [facility]. Occupation/Education: retired Spiritual care concerns: No Meds Home Medications and Allergies Home Medications Medication Instructions Recorded Confirmed Type amlodipine 10 mg PO DAILY 03/20/19 03/24/19 History atorvastatin 80 mg PO HS 03/20/19 03/24/19 History budesonide-formoterol 2 puff INHALATION Q12H 03/20/19 03/24/19 History ferrous sulfate 325 mg PO DAILY 03/20/19 03/24/19 History furosemide 80 mg PO DAILY 03/20/19 03/24/19 History haloperidol decanoate 100 mg IM MONTHLY 03/20/19 03/24/19 History metformin 1,000 mg PO BID 03/20/19 03/24/19 History metolazone 5 mg PO 3XW 03/20/19 03/24/19 History pantoprazole 40 mg PO QAM 03/20/19 03/24/19 History spironolactone 25 mg PO DAILY 03/20/19 03/24/19 History acetaminophen 1,000 mg PO Q8H 03/24/19 03/24/19 History aspirin 325 mg PO DAILY 03/24/19 03/24/19 History donepezil [Aricept] 5 mg PO HS 03/24/19 03/24/19 History fluticasone propion-salmeterol 1 puff INHALATION BID 03/24/19 03/24/19 History lactulose 45 ml PO TID 03/24/19 03/24/19 History memantine [Namenda] 5 mg PO QAM 03/24/19 03/24/19 History nitroglycerin 0.3 mg SUBLINGUAL Q5-15M PRN 03/24/19 03/24/19 History ondansetron HCl 4 mg PO Q8H PRN 03/24/19 03/24/19 History Allergies Allergy/AdvReac Type Severity Reaction Status Date / Time Iodinated Contrast Media Allergy Unknown Verified 03/20/19 11:50 meperidine [From Demerol] Allergy Unknown Verified 03/20/19 11:50 Vital Signs Vital Signs - 24 hr 04/01/19 15:11 04/01/19 22:00 04/02/19 05:49 Temperature 36.3 C L 36.6 C Pulse Rate 82 91 Respiratory Rate 18 20 Blood Pressure 147/65 H 136/67 Pulse Oximetry 98 93 92 04/02/19 06:00 04/02/19 08:52 04/02/19 09:07 Temperature 36.5 C Pulse Rate 8
--- NOTE | 2019-04-02 13:28 | PC.NURSE ---
Patient continuously snacks throughout the day. Blood glucose was taken at 1200 was 168 and insulin was non-administered. After lunch tray arrived patient's blood sugar was 250. Non-administration of insulin was un done and sliding scale insulin was administered.
[2019-04-02] MEDS: INSULIN ASPART (*BKC) 100 UNITS/ML SUB-Q ×2 (13:37→16:43)
[2019-04-02 16:35] LABS: Glucose Point of Care 300 (65-105)
[2019-04-02] MEDS: ATORVASTATIN 40 MG TABLET 80 MG PO (20:10)
[2019-04-02] MEDS: DONEPEZIL HCL 5 MG TABLET PO (20:11)
[2019-04-02 20:29] LABS: Glucose Point of Care 312 (65-105)
--- NOTE | 2019-04-02 20:44 | PCRCNOTE ---
pt refused tx; pt is very combative (pt has a sitter)
[2019-04-03] VITALS (14 sets, daily range): BP systolic 128–154; BP diastolic 61–82; PULSE 79–100; RESP 18–78; TEMP 36.2–37.1; O2SAT 91–100
[2019-04-03] MEDS: ALBUTEROL SULFATE NEB 2.5 MG/0.5 ML INH INHALATION ×4 (02:42→20:35)
[2019-04-03] MEDS: IPRATROPIUM BR 0.02% INH SOLN 0.5 MG/2.5 ML VIAL INHALATION ×4 (02:42→20:35)
[2019-04-03 07:15] LABS: Glucose Point of Care 101 (65-105)
[2019-04-03 07:39] LABS: Hematocrit 36.8 % (37.0-47.0); Hemoglobin 10.8 g/dL (12.0-15.0); Mean Corpuscular HGB Conc 29.3 g/dl (32-36); Mean Corpuscular Hemoglobin 28.8 pg (26-34); Mean Corpuscular Volume 98.1 fl (80-100); Mean Platelet Volume 9.5 fl (7.4-10.4); Platelet Count Result 401 k/mm3 (150-375); Red Blood Count 3.75 M/mm3 (4.2-5.4); Red Cell Distribution Width 15.5 % (11.5-14.5); White Blood Count 9.2 K/mm3 (4.5-10.0)
[2019-04-03 07:55] LABS: Blood Urea Nitrogen 29 mg/dL (7-17); Calcium 8.2 mg/dL (8.4-10.2); Carbon Dioxide 29 mmol/L (22-30); Chloride 103 mmol/L (98-107); Estimated CRCL calculation 66 ml/min; Estimated Glomerular Filt Rate > 60; Glucose 114 mg/dL (65-105); Potassium 3.8 mmol/L (3.4-5.0); Sodium 138 mmol/L (137-145)
[2019-04-03] MEDS: BUDESONIDE RESPULE NEB 0.5 MG/2 ML AMP INHALATION ×2 (08:39→20:35)
[2019-04-03] MEDS: DORNASE ALFA INH SOLN 1 MG/ML 2.5 ML AMP 2.5 MG INHALATION ×2 (08:45→20:35)
[2019-04-03] MEDS: ENOXAPARIN 40 MG/0.4 ML SYRINGE SUB-Q (09:00)
[2019-04-03] MEDS: MEMANTINE 5 MG TABLET PO (09:01)
[2019-04-03] MEDS: AMLODIPINE BESYLATE 5 MG TABLET 10 MG PO (09:02)
[2019-04-03] MEDS: hydrALAZINE HCL 25 MG TABLET PO ×4 (09:02→20:05)
[2019-04-03] MEDS: ASPIRIN 325 MG TABLET PO (09:02)
[2019-04-03] MEDS: predniSONE 20 MG TABLET 40 MG PO (09:02)
[2019-04-03] MEDS: SPIRONOLACTONE 25 MG TABLET PO (09:02)
[2019-04-03] MEDS: FERROUS SULFATE 324 MG TABLET PO (09:02)
[2019-04-03] MEDS: ACETAMINOPHEN 325 MG TABLET 650 MG PO ×2 (09:12→22:09)
[2019-04-03] MEDS: FUROSEMIDE INJ 40 MG/4 ML VIAL IV PUSH ×2 (10:32→17:10)
[2019-04-03] MEDS: INSULIN GLARGINE (*BKC) 100 UNITS/ML 20 UNITS SUB-Q (10:35)
[2019-04-03 11:52] LABS: Glucose Point of Care 256 (65-105)
[2019-04-03] MEDS: INSULIN ASPART (*BKC) 100 UNITS/ML SUB-Q ×2 (12:12→17:08)
--- NOTE | 2019-04-03 12:40 | PM.CNCAR ---
Assessment and Plan Assessment and plan (1) CHF (congestive heart failure): Code(s): I50.9 - Heart failure, unspecified Status: Acute Assessment and Plan: predominant right-sided heart failure. She has severe RV enlargement and severe pulmonary hypertension. Pulmonology is involved. Recommend continuing diuresis 40 mg of furosemide IV q.12 hours for now. Will order 2D echocardiogram with Doppler and agitated saline study to evaluate for any shunting. Potassium level is low and will give her 40 mg p.o. x1 of KCl (2) Pulmonary hypertension: Code(s): I27.20 - Pulmonary hypertension, unspecified Status: Acute Assessment and Plan: severe (3) Hyperlipidemia: Code(s): E78.5 - Hyperlipidemia, unspecified Status: Chronic (4) Cirrhosis: Qualifiers: Ascites presence: with ascites Hepatic cirrhosis type: unspecified hepatic cirrhosis Qualified Code(s): K74.60 - Unspecified cirrhosis of liver; R18.8 - Other ascites Code(s): K74.60 - Unspecified cirrhosis of liver Status: Chronic (5) COPD (chronic obstructive pulmonary disease): Qualifiers: COPD type: unspecified COPD Qualified Code(s): J44.9 - Chronic obstructive pulmonary disease, unspecified Code(s): J44.9 - Chronic obstructive pulmonary disease, unspecified Status: Chronic Assessment and Plan: follow-up pulmonology (6) A-fib: Qualifiers: Atrial fibrillation type: unspecified chronic Qualified Code(s): I48.20 - Chronic atrial fibrillation, unspecified Code(s): I48.91 - Unspecified atrial fibrillation Status: Chronic Assessment and Plan: in sinus rhythm at present. On full-dose aspirin. (7) Dementia: Code(s): F03.90 - Unspecified dementia without behavioral disturbance Status: Chronic History of Present Illness History of Present Illness Consult date/time: 04/03/19 12:40 Requesting physician: Eva Morataya MD Consult reason: congestive heart failure and shortness of breath Reason For Visit: Acute respiratory failure w/ hypoxia Narrative: Date of service 04/03/2019 History: Patient is a 68-year-old female who was admitted because of hypoxia. She was admitted to the ICU and was treated for a combination of ARDS, pneumonia, COPD exacerbation. Echocardiogram performed at that time showed a hyperdynamic left ventricle but with severe pulmonary hypertension with RVSP of 94. Severe right heart failure with RV enlargement. As the patient was being evaluated by pulmonology, there was concern about the patient having a heart failure and cardiology consultation was recommended and therefore requested by the hospitalist service. Patient states that she has had progressively worsening shortness of breath and edema for the past several months. She also describes a pleuritic right-sided chest pain worsened by pressing on her chest. She denies any syncope, presyncope. No paroxysmal nocturnal dyspnea or orthopnea. Her edema is a little better. She states that she does use oxygen at home at times. She is now receiving IV diuretics with some improvement. Review of Systems Review of Systems: All systems reviewed & are unremarkable except as noted in HPI and below Constitutional: Constitutional: Reports weakness Eyes: Eyes: Denies blurry vision ENT: Reports hearing normal Cardiovascular: Cardiovascular: Reports chest pain and Reports leg edema Respiratory: Respiratory: Reports dyspnea Gastrointestinal: Gastrointestinal: Denies abdominal pain Musculoskeletal: Musculoskeletal: Denies neck pain Integumentary/Breasts: Skin/Breast: Denies dry skin Neurologic: Denies headache(s) Psychiatric: Psychiatric: Denies anxiety Endocrine: Endocrine: Denies fatigue and Denies flushing Hematologic/Lymphatic: Hematologic/Lymphatic: Denies easy bleeding Allergic/Immunologic: Allergic/Immunologic: Denies lip swelling PMFSH
--- NOTE | 2019-04-03 12:54 | ECHO_ITS ---
Patient Info Name: Sendy Malin Age: 68 years : 1950 Gender: Female Ht: 64 in Wt: 166 lbs BSA: 1.87 m2 HR: 100 bpm BP: 128 / 61 mmHg Heart Rhythm: Tachycardia, Sinus Rhythm Technical Quality: Good Exam Date: 04/03/2019 1:19 PM Exam Location: [facility] Patient Status: Inpatient Admit Date: 03/24/2019 Staff Ordering Physician: Sumeet Guardado MD Catalogue Clerk: Wilian Dale RDCS Attending Provider: Maddi Camp MD Referring Physician: Geo PEREZ; Exam Type: CA echo doppler w bubble study Study Info Indications I27.0 - Primary pulmonary hypertension Complete two-dimensional, color flow and Doppler transthoracic echocardiogram is performed with agitated saline. Contrast/Agitated Saline Contrast/Ag. Saline: Agitated Saline Amount: 18.00 ml Administered By: Serina Quezada RN History/Risk Factors Pulmonary hypertension; COPD, DM, HTN. Summary 1. Left ventricular systolic function is hyperdynamic, estimated at >70%. 2. There is moderate concentric increased left ventricular wall thickness. 3. The septum has a D sign indicating RV pressure overload. 4. There is mild to moderate tricuspid valve regurgitation. 5. Severe pulmonary hypertension, estimated pulmonary arterial systolic pressure is 130 mmHg. 6. Biatrial dilation. 7. Saline contrast is negative for intracardiac shunt. Left Ventricle Left ventricular chamber dimension is normal. Left ventricular systolic function is hyperdynamic, estimated at >70%. There is moderate concentric increased left ventricular wall thickness. The left ventricular diastolic function is grade I diastolic dysfunction. The septum has a D sign indicating RV pressure overload. Right Ventricle Right ventricular chamber dimension is mildly enlarged. Left Atria Left atrial chamber dimension is moderately enlarged. Right Atria Right atrial chamber dimension is mildly enlarged. Atrial Septum Interatrial septum not well visualized by agitated saline imaging. Aortic Valve The aortic valve is not well visualized. Pulmonic Valve The pulmonic valve is normal. There is mild pulmonic regurgitation. Mitral Valve The mitral valve has normal leaflets. There is trace mitral valve regurgitation. Tricuspid Valve The tricuspid valve leaflets are normal. There is mild to moderate tricuspid valve regurgitation. Severe pulmonary hypertension, estimated pulmonary arterial systolic pressure is 130 mmHg. Pericardium/Pleural The pericardium appears normal. Aorta The aortic root size at the sinus of Valsalva is normal. Left Ventricular Outflow Tract Name Value Normal LVOT 2D LVOT Diameter 1.9 cm LVOT Doppler LVOT Peak Gradient 11 mmHg LVOT Mean Gradient 6 mmHg LVOT VTI 24 cm LVOT VTI/AV VTI Ratio 0.8 LVOT Stroke Volume 69 ml LVOT CO 7.0 l/min LVOT CI 3.8
[2019-04-03 14:07] LABS: Vancomycin Trough 16.7 ug/mL (10.0-20.0)
[2019-04-03] MEDS: POTASSIUM CHLORIDE 20 MEQ TABLET 40 MEQ PO (14:28)
[2019-04-03 17:03] LABS: Glucose Point of Care 303 (65-105)
--- NOTE | 2019-04-03 17:39 | PM.IMPN ---
Progress Note: A&P Assessment and Plan (1) Septic shock: Code(s): A41.9 - Sepsis, unspecified organism; R65.21 - Severe sepsis with septic shock Status: Acute Assessment and Plan: 04/03 Patient seen and examined the ICU, was intubated, had been on CMV mode of ventilation, 30% FiO2, peep of 8. Sedated with Versed 2 mg/hr min infusion. patient was taken off levophed, and was extubated on and patient is out of ICU and on medical floor, patient is a poor historian and difficult to get regarding her lung disease chest x-ray shows stable diffuse lung disease, consistent with pulmonary edema and/or pneumonia and/or acute respiratory distress syndrome. patient stats she stop smoking several yrs ago, patient is being treated with vancomycin, rocephine, zothromax, prednisone and updraft, blood, culture negative so far and sputum is growing normal christa. Patient was not cooperative with her IV medication and and neb treatment patient wants ice cream if we were to administer for treatment, patient has agreed to take her medication and had treatment will continue to monitor and repeat checks x-ray today showed improvement in infiltrates and pulmonoary edema, D/W with plumonolgist, patient will benefit from furthe diureses, patient was seen by roll wrapper suspect patient has severe pulmonary hypertesnion recommended to continue to diurese, patient is difficult to communicate and poor historian (2) DVT prophylaxis: Code(s): Z29.9 - Encounter for prophylactic measures, unspecified Status: Acute Assessment and Plan: on lovenox (3) Acute respiratory failure with hypoxia and hypercapnia: Code(s): J96.01 - Acute respiratory failure with hypoxia; J96.02 - Acute respiratory failure with hypercapnia Status: Acute Assessment and Plan: plan is above (4) Pulmonary edema: Qualifiers: Chronicity: acute Qualified Code(s): J81.0 - Acute pulmonary edema Code(s): J81.1 - Chronic pulmonary edema Status: Resolved Assessment and Plan: was on iv lasix on will continue and monitor (5) Hyperlipidemia: Code(s): E78.5 - Hyperlipidemia, unspecified Status: Chronic Assessment and Plan: Hold atorvastatin (6) HTN (hypertension) with goal to be determined: Code(s): I10 - Essential (primary) hypertension Status: Chronic Assessment and Plan: off vasopressors now on amlodipine as well as spironolactone (7) CAP (community acquired pneumonia): Qualifiers: Laterality: unspecified laterality Qualified Code(s): J18.9 - Pneumonia, unspecified organism Code(s): J18.9 - Pneumonia, unspecified organism Status: Acute Assessment and Plan: Patient in intubated in icu pt is on i rocephin, iv zithromax and iv steroids (8) A-fib: Qualifiers: Atrial fibrillation type: unspecified chronic Qualified Code(s): I48.20 - Chronic atrial fibrillation, unspecified Code(s): I48.91 - Unspecified atrial fibrillation Status: Chronic Assessment and Plan: Currently in sinus rhythm. (9) COPD (chronic obstructive pulmonary disease): Qualifiers: COPD type: unspecified COPD Qualified Code(s): J44.9 - Chronic obstructive pulmonary disease, unspecified Code(s): J44.9 - Chronic obstructive pulmonary disease, unspecified Status: Chronic Assessment and Plan: Continue with nebulizer treatments. will consult Dr. Marcos for further recommendations (10) Schizophrenia: Code(s): F20.9 - Schizophrenia, unspecified Status: Chronic Assessment and Plan: Patient is difficult to communicate and not cooperative with her treatment (11) Cirrhosis: Qualifiers: Ascites presence: with ascites Hepatic cirrhosis type: unspecified hepatic cirrhosis Qualified Code(s): K74.60 - Unspecified cirrhosis of liver; R18.8 - Other ascites Code(s): K74.60 - Unspeci
--- NOTE | 2019-04-03 18:27 | PM.PNPUL ---
Progress Note: A&P Assessment and Plan (1) CHF (congestive heart failure): Code(s): I50.9 - Heart failure, unspecified Status: Acute Assessment and Plan: She is able to speak in a forceful voice, on room air, does not appear to have shortness of breath. She does not allow me to examine her, yelling profanities and paranoid comments. There is a sitter in the room who says that the patient has been acting like this all day. She received IM haldol on Mar 21, and this is her monthly dose. Sheis on Namenda and donepicel for memory loss, nothing else for schizophrenia. (2) Acute respiratory failure with hypoxia and hypercapnia: Code(s): J96.01 - Acute respiratory failure with hypoxia; J96.02 - Acute respiratory failure with hypercapnia Status: Acute Assessment and Plan: She is on room air, was intubated on admission. (3) COPD (chronic obstructive pulmonary disease): Qualifiers: COPD type: unspecified COPD Qualified Code(s): J44.9 - Chronic obstructive pulmonary disease, unspecified Code(s): J44.9 - Chronic obstructive pulmonary disease, unspecified Status: Chronic Assessment and Plan: No exam performed today. Subjective Date/time seen: 04/03/19 18:27 This 68 yo female is seen in follow up for shortness of breath, appears angry, paranoid. Does not appear short of breath, so that is improving. Review of Systems Review of Systems: All systems reviewed & are unremarkable except as noted in HPI and below Exam Const: General: other (Suspicious, cursing, angry, would not permit me to touch her. ); No cooperative Extrem: General: no edema and no pedal edema Psych: Thought content: Yes paranoid delusions Other: No physical exam was performed other than looking at her and talking to her. Objective Data Vital Signs Vital Signs: Vital Signs - 24 hr 04/02/19 20:00 04/03/19 02:19 04/03/19 02:42 Temperature 36.6 C Pulse Rate 90 82 82 Respiratory Rate 18 20 18 Blood Pressure 154/81 H Pulse Oximetry 94 97 04/03/19 02:52 04/03/19 06:00 04/03/19 08:45 Temperature 36.2 C L Pulse Rate 85 85 86 Respiratory Rate 18 20 20 Blood Pressure 147/82 H Pulse Oximetry 98 04/03/19 08:47 04/03/19 09:10 04/03/19 14:00 Temperature 37.1 C Pulse Rate 88 100 Respiratory Rate 20 78 H Blood Pressure 128/61 Pulse Oximetry 93 91 04/03/19 14:42 04/03/19 14:55 Temperature Pulse Rate 80 84 Respiratory Rate 20 20 Blood Pressure Pulse Oximetry Intake/Output Intake/Output: Intake & Output 03/31/19 04/01/19 04/02/19 04/03/19 23:59 23:59 23:59 23:59 Intake Total 1421 1145 2590 2480 Output Total 1650 2050 4050 Balance -229 -070 4210 -3041 Meds/Results Medications: Active Medications Generic Name Dose Route Start Last Admin Trade Name Freq PRN Reason Stop Dose Admin Acetaminophen 650 mg 03/31/19 10:16 04/03/19 09:12 Tylenol Tablet PO 650 mg Q6H PRN Administration Mild Pain (1-3) or Fever Albuterol 2.5 mg 03/25/19 02:00 04/03/19 14:41 Albuterol Sulf Neb 2.5mg/0.5ml INHALATION 2.5 mg Q6HRT RHINA Administration Amlodipine Besylate 10 mg 03/28/19 09:00 04/03/19 09:02 Norvasc PO 10 mg DAILY RHINA Administration Aspirin 325 mg 03/28/19 09:00 04/03/19 09:02 Aspirin PO 325 mg DAILY RHINA Administration Atorvastatin Calcium 80 mg 03/28/19 21:00 04/02/19 20:10 Lipitor PO 80 mg HS RHINA Administration Budesonide 0.5 mg 04/01/19 20:00 04/03/19 08:39 Pulmicort Respule Neb INHALATION 0.5 mg Q12HRT RHINA Administration Dextrose 12.5 gm 03/24/19 19:57 Dextrose 50% Syringe IV PUSH PRN PRN Hypoglycemia Protocol Donepezil HCl 5 mg 03/24/19 21:00 04/02/19 20:11 Aricept PO 5 mg HS RHINA Administration Dornase Alex 2.5 mg 03/25/19 00:00 04/03/19 08:45 Pulmozyme INHALATION 2.5 mg Q12HRT RHINA Administration Enoxaparin Sodium 40 mg
[2019-04-03] MEDS: ATORVASTATIN 40 MG TABLET 80 MG PO (20:05)
[2019-04-03] MEDS: DONEPEZIL HCL 5 MG TABLET PO (20:05)
[2019-04-03 20:13] LABS: Glucose Point of Care 357 (65-105)
[2019-04-03] MEDS: INSULIN ASPART (*BKC) 100 UNITS/ML 6 UNITS SUB-Q (21:24)
[2019-04-04] VITALS (9 sets, daily range): BP systolic 137–156; BP diastolic 52–86; PULSE 80–105; RESP 16–20; TEMP 36.6–36.8; O2SAT 90–100
[2019-04-04 01:07] LABS: Glucose Point of Care 95 (65-105)
[2019-04-04] MEDS: ACETAMINOPHEN 325 MG TABLET 650 MG PO ×2 (06:36→11:40)
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
[2019-04-04] MEDS: predniSONE 20 MG TABLET 40 MG PO (07:56)
[2019-04-04 08:01] LABS: Glucose Point of Care 77 (65-105)
[2019-04-04 08:27] LABS: Hematocrit 37.2 % (37.0-47.0); Hemoglobin 10.9 g/dL (12.0-15.0); Mean Corpuscular HGB Conc 29.3 g/dl (32-36); Mean Corpuscular Volume 98.9 fl (80-100); Platelet Count Result 403 k/mm3 (150-375); Red Blood Count 3.76 M/mm3 (4.2-5.4); Red Cell Distribution Width 15.5 % (11.5-14.5); White Blood Count 9.5 K/mm3 (4.5-10.0)
[2019-04-04] MEDS: ALBUTEROL SULFATE NEB 2.5 MG/0.5 ML INH INHALATION ×2 (08:34→15:01)
[2019-04-04] MEDS: BUDESONIDE RESPULE NEB 0.5 MG/2 ML AMP INHALATION (08:34)
[2019-04-04] MEDS: IPRATROPIUM BR 0.02% INH SOLN 0.5 MG/2.5 ML VIAL INHALATION ×2 (08:34→15:01)
[2019-04-04 08:40] LABS: Blood Urea Nitrogen 30 mg/dL (7-17); Calcium 8.3 mg/dL (8.4-10.2); Carbon Dioxide 27 mmol/L (22-30); Chloride 104 mmol/L (98-107); Estimated CRCL calculation 76 ml/min; Estimated Glomerular Filt Rate > 60; Glucose 81 mg/dL (65-105); Potassium 3.8 mmol/L (3.4-5.0); Sodium 137 mmol/L (137-145)
[2019-04-04] MEDS: FUROSEMIDE INJ 40 MG/4 ML VIAL IV PUSH (09:02)
[2019-04-04] MEDS: ENOXAPARIN 40 MG/0.4 ML SYRINGE SUB-Q (09:04)
[2019-04-04] MEDS: MEMANTINE 5 MG TABLET PO (09:05)
[2019-04-04] MEDS: AMLODIPINE BESYLATE 5 MG TABLET 10 MG PO (09:05)
[2019-04-04] MEDS: PANTOPRAZOLE 40 MG TABLET PO (09:05)
[2019-04-04] MEDS: ASPIRIN 325 MG TABLET PO (09:05)
[2019-04-04] MEDS: hydrALAZINE HCL 25 MG TABLET PO ×3 (09:05→16:59)
[2019-04-04] MEDS: FERROUS SULFATE 324 MG TABLET PO (09:05)
[2019-04-04] MEDS: SPIRONOLACTONE 25 MG TABLET PO (09:05)
--- NOTE | 2019-04-04 10:38 | PM.DS ---
DS: Diagnosis Admitting Diagnosis Admitting Diagnosis: Pneumonia, unspecified organism Discharge Diagnosis (1) Septic shock: Code(s): A41.9 - Sepsis, unspecified organism; R65.21 - Severe sepsis with septic shock Status: Acute Assessment and Plan: 04/03 Patient seen and examined the ICU, was intubated, had been on CMV mode of ventilation, 30% FiO2, peep of 8. Sedated with Versed 2 mg/hr min infusion. patient was taken off levophed, and was extubated on and patient is out of ICU and on medical floor, patient is a poor historian and difficult to get regarding her lung disease chest x-ray shows stable diffuse lung disease, consistent with pulmonary edema and/or pneumonia and/or acute respiratory distress syndrome. patient stats she stop smoking several yrs ago, patient is being treated with vancomycin, rocephine, zothromax, prednisone and updraft, blood, culture and sputum culture negative to date. Patient was not cooperative with her IV medication at first on the medical floor, patient has agreed to take her medication, chest x-ray yesterday showed improvement in infiltrates and pulmonary edema, patient has severe pulmonary hypertension recommended further diuresis by pulmology service. As per previous notes. 04/04 Pt is now stable for discharge as per hospitalist service and pulmologist. (2) Acute respiratory failure with hypoxia and hypercapnia: Code(s): J96.01 - Acute respiratory failure with hypoxia; J96.02 - Acute respiratory failure with hypercapnia Status: Resolved Assessment and Plan: Treatment plan as above (3) Pulmonary edema: Qualifiers: Chronicity: acute Qualified Code(s): J81.0 - Acute pulmonary edema Code(s): J81.1 - Chronic pulmonary edema Status: Resolved Assessment and Plan: Pt was on iv lasix, can transition to oral lasix at home. (4) Hyperlipidemia: Code(s): E78.5 - Hyperlipidemia, unspecified Status: Chronic Assessment and Plan: Pt can continue atorvastatin at home (5) HTN (hypertension) with goal to be determined: Code(s): I10 - Essential (primary) hypertension Status: Chronic Assessment and Plan: Pt back on amlodipine as well as spironolactone (6) CAP (community acquired pneumonia): Qualifiers: Laterality: unspecified laterality Qualified Code(s): J18.9 - Pneumonia, unspecified organism Code(s): J18.9 - Pneumonia, unspecified organism Status: Acute Assessment and Plan: Patient in intubated in icu pt was treated with iv rocephin, iv zithromax and iv steroids, transitioned back to her oral medications and doxycycline (7) A-fib: Qualifiers: Atrial fibrillation type: unspecified chronic Qualified Code(s): I48.20 - Chronic atrial fibrillation, unspecified Code(s): I48.91 - Unspecified atrial fibrillation Status: Chronic Assessment and Plan: Currently in sinus rhythm.Seen by cardiology (8) COPD (chronic obstructive pulmonary disease): Qualifiers: COPD type: unspecified COPD Qualified Code(s): J44.9 - Chronic obstructive pulmonary disease, unspecified Code(s): J44.9 - Chronic obstructive pulmonary disease, unspecified Status: Chronic Assessment and Plan: Continue with nebulizer treatments. See by DR Marcos pulmology (9) Schizophrenia: Code(s): F20.9 - Schizophrenia, unspecified Status: Chronic Assessment and Plan: Patient is difficult to communicate and not cooperative with her treatment (10) Cirrhosis: Qualifiers: Ascites presence: with ascites Hepatic cirrhosis type: unspecified hepatic cirrhosis Qualified Code(s): K74.60 - Unspecified cirrhosis of liver; R18.8 - Other ascites Code(s): K74.60 - Unspecified cirrhosis of liver Status: Chronic Assessment and Plan: Chronic and stable pt to continue on metolazone. (11) DM (diabet
[2019-04-04] MEDS: INSULIN GLARGINE (*BKC) 100 UNITS/ML 20 UNITS SUB-Q (10:50)
[2019-04-04 11:44] LABS: Glucose Point of Care 262 (65-105)
[2019-04-04] MEDS: INSULIN ASPART (*BKC) 100 UNITS/ML SUB-Q ×2 (12:02→17:12)
--- NOTE | 2019-04-04 13:27 | PM.PNCARD ---
Progress Note: A&P Assessment and Plan (1) CHF (congestive heart failure): Code(s): I50.9 - Heart failure, unspecified Status: Acute Assessment and Plan: predominant right-sided heart failure. She has severe RV enlargement and severe pulmonary hypertension. Pulmonology is involved.? Sleep apnea. Will DC IV furosemide and switch her to furosemide 80 mg p.o. daily. She was also on metolazone as an outpatient which should be continued (2) Pulmonary hypertension: Code(s): I27.20 - Pulmonary hypertension, unspecified Status: Acute Assessment and Plan: severe. Questionable etiology. Possibly related to underlying COPD (3) Hyperlipidemia: Code(s): E78.5 - Hyperlipidemia, unspecified Status: Chronic (4) Cirrhosis: Qualifiers: Ascites presence: with ascites Hepatic cirrhosis type: unspecified hepatic cirrhosis Qualified Code(s): K74.60 - Unspecified cirrhosis of liver; R18.8 - Other ascites Code(s): K74.60 - Unspecified cirrhosis of liver Status: Chronic (5) COPD (chronic obstructive pulmonary disease): Qualifiers: COPD type: unspecified COPD Qualified Code(s): J44.9 - Chronic obstructive pulmonary disease, unspecified Code(s): J44.9 - Chronic obstructive pulmonary disease, unspecified Status: Chronic Assessment and Plan: follow-up pulmonology (6) A-fib: Qualifiers: Atrial fibrillation type: unspecified chronic Qualified Code(s): I48.20 - Chronic atrial fibrillation, unspecified Code(s): I48.91 - Unspecified atrial fibrillation Status: Chronic Assessment and Plan: in sinus rhythm at present. On full-dose aspirin. (7) Dementia: Code(s): F03.90 - Unspecified dementia without behavioral disturbance Status: Chronic Subjective Date/time seen: 04/04/19 13:27 Interval history: Chief complaint and reason for consultation: Shortness of breath, ?CHF ? Date of service 04/04/2019 She is anxious to go home. She feels okay. She denies any significant shortness of breath. No chest pain Review of Systems Review of Systems: All systems reviewed & are unremarkable except as noted in HPI and below Constitutional: Constitutional: Denies fatigue, Denies headache(s) and Reports weakness Eyes: Eyes: Denies blurry vision ENT: Reports Normal hearing present, Denies headache(s), Denies lip swelling and Denies neck pain Cardiovascular: Cardiovascular: Reports chest pain, Reports leg edema and Reports dyspnea Respiratory: Respiratory: Reports dyspnea Gastrointestinal: Gastrointestinal: Denies abdominal pain Musculoskeletal: Musculoskeletal: Denies neck pain Integumentary/Breasts: Skin/Breast: Denies dry skin Neurologic: Reports Normal hearing present, Denies headache(s) and Reports weakness Psychiatric: Psychiatric: Denies anxiety Endocrine: Endocrine: Denies fatigue and Denies flushing Hematologic/Lymphatic: Hematologic/Lymphatic: Denies easy bleeding Allergic/Immunologic: Allergic/Immunologic: Denies lip swelling Exam Const: General: no acute distress HENMT: General nose exam: no epistaxis Eyes: Sclera: sclerae normal Neck: Neck: no JVD Chest: Other: reproducible chest wall pain to palpate her right side of her chest Resp: Auscultation: diminished lung sounds Cardio: Rate: regular rate Heart sounds: Murmur heart sound present Skin: General skin exam: normal color Neuro: Cranial nerves: Yes Normal hearing present Cognition (Neuro): normal cognition Speech: normal speech Extrem: General: edema (Trace to 1+ bilateral lower extremity edema which is improved) and pedal edema Psych: Affect: normal affect Objective Data Vital Signs Vital Signs: Vital Signs - 24 hr 04/03/19 14:00 04/03/19 14:42 04/03/19 14:55 Temperature 37.1 C Pulse Rate 100 80 84 Respiratory Rate 78 H 20 20 Blood Pressure 128/61 Pulse Oximetry 91 04/03/19
--- NOTE | 2019-04-04 15:19 | PC.NURSE ---
ok to discharge per Evelyn Catalan. no need to follow up with cardiology but would benefit from pulmnology follow up.
--- NOTE | 2019-04-04 16:20 | PM.PNPUL ---
Progress Note: A&P Assessment and Plan (1) Right heart failure: Qualifiers: Heart failure chronicity: acute on chronic Qualified Code(s): I50.813 - Acute on chronic right heart failure Code(s): I50.810 - Right heart failure, unspecified Status: Acute Assessment and Plan: Echo shows enlarged right ventricle, RVSP 130 mm Hg, which shows that her right heart is the culprit. The left side is fine, so this is due to lungs including COPD and possible sleep apnea. Her echo with bubble study was negative indicating no shunt; Her heart failure is all due to the COPD and possible sleep apnea. The patient is not cooperative as far as allowing an exam or being able to cooperate with answering questions. She is able to speak in a forceful voice, now on 1 L/min, was on room air yesterday. Does not appear to have shortness of breath, however told other people today that she feels short of breath with exertion. She does not allow me to examine her, yelling profanities and paranoid comments. She received IM haldol on Mar 21, and this is her monthly dose. She is on Namenda and donepezil. (2) CHF (congestive heart failure): Code(s): I50.9 - Heart failure, unspecified Status: Acute (3) Acute respiratory failure with hypoxia and hypercapnia: Code(s): J96.01 - Acute respiratory failure with hypoxia; J96.02 - Acute respiratory failure with hypercapnia Status: Resolved Assessment and Plan: She is on 1 L/minute, was intubated on admission. She is not able to cooperate with PFTs, sleep study, walk study, and still smokes when she is at [facility]. (4) COPD (chronic obstructive pulmonary disease): Qualifiers: COPD type: unspecified COPD Qualified Code(s): J44.9 - Chronic obstructive pulmonary disease, unspecified Code(s): J44.9 - Chronic obstructive pulmonary disease, unspecified Status: Chronic Assessment and Plan: No exam performed today. She would benefit from having more evaluation but could not cooperate with PFTs. (5) Pulmonary hypertension: Code(s): I27.20 - Pulmonary hypertension, unspecified Status: Acute Assessment and Plan: She has severe pulmonary hypertension with a RVSP 130 mm Hg, with a normal EF 70%. She would benefit from having more evaluation for COPD, sleep apnea, however it does not appear that she could cooperate. Time Spent With Patient Time with patient: less than 15 minutes Subjective Date/time seen: 04/04/19 16:20 This 68 yo female is seen in follow up for shortness of breath, has been less hostile today whoever when I saw her, she was angry, paranoid. Does not appear short of breath, so that is improving. Her echo results show extremely high pulmonary pressures with RVSP 130 mm Hg. EF is 70%, so this is really due to her lungs. I left a message on the voicemail for Zora Kong [phone] asking her to call me back about follow up. I called her other daughter Sendy [phone] however the phone was not able to accept a message. She is on 1 L/min oxygen with saturation 92-100%. I read Dr. Guardado's note, and see that she will be going to [facility] on metolazone and Lasix orally. She is on room air. Review of Systems Review of Systems: All systems reviewed & are unremarkable except as noted in HPI and below Exam Narrative: Exam Narrative: She was walking in the room, allowed me to listen to her lungs while sitting on the side of the bed, but would not let me listento her Const: General: other; No cooperative HENMT: Mouth: Yes moist mucous membranes Neck: Neck: supple and no JVD (difficult to assess ) Resp: Auscultation: crackles an
[2019-04-04 17:02] LABS: Glucose Point of Care 291 (65-105)
--- NOTE | 2019-04-04 18:48 | PC.NURSE ---
Called report at 1630 to [facility].
== END 2019-04-04 20:30 | DRG 720 ==
LOC: ANHED 17:23 → ANHICU 17:39 → ANH3MEDSUR 03-31 11:12
PROVIDERS: Family Medicine; Internal Medicine; Internal Medicine Critical Care Medicine; Nurse Practitioner; Admitting Provider Family Medicine; Emergency Provider Emergency Medicine; Visit Provider Family Medicine
DX: A41.9 Sepsis, unspecified organism (principal); J96.01 Acute respiratory failure with hypoxia; R65.21 Severe sepsis with septic shock; F03.90 Unspecified dementia, unspecified severity, without behavioral disturbance, psychotic disturbance, mood disturbance, and anxiety; F41.9 Anxiety disorder, unspecified; K74.60 Unspecified cirrhosis of liver; I48.20 Chronic atrial fibrillation, unspecified; J44.9 Chronic obstructive pulmonary disease, unspecified; E11.9 Type 2 diabetes mellitus without complications; Z86.718 Personal history of other venous thrombosis and embolism; I10 Essential (primary) hypertension; E78.5 Hyperlipidemia, unspecified; F20.9 Schizophrenia, unspecified; I50.9 Heart failure, unspecified; J96.02 Acute respiratory failure with hypercapnia; R18.8 Other ascites; Z87.891 Personal history of nicotine dependence; J18.9 Pneumonia, unspecified organism; I27.20 Pulmonary hypertension, unspecified
CPT/HCPCS: 31500; 36415; 36600; 71045; 80048; 80053; 80202; 82140; 82375; 82805; 83036; 83050; 83605; 83735; 83880; 84100; 84443; 84484; 85025; 85027; 85610; 85730; 87040; 87070; 87081; 87205; 92610; 93005; 93306; 94002; 94003; 94640; 96365; 96375; 97110; 97161; 97165; 97530; 97535; 99291; A9270; C1751; C9113; J0131; J0330; J0456; J0696; J1650; J1815; J1940; J2250; J2704; J2920; J3370; J3475; J7030; J7050; J7512

== ENCOUNTER 2019-05-29 13:56 | Inpatient (IN) | payer BC, SELFPAY ==
[2019-05-29] VITALS (21 sets, daily range): BP systolic 71–135; BP diastolic 53–88; PULSE 63–118; RESP 12–32; TEMP 35.5–36.6; O2SAT 87–100; BMI 37.2
--- NOTE | ~2019-05-29 | CT_ITS ---
EXAMINATION: CT brain wo con DATE: 05/29/2019 17:05 INDICATION: Confusion. TECHNIQUE: Computed tomography (CT) of the head was performed without intravenous contrast. The mA wa s adjusted according to patient size. Iterative reconstruction technique was employed. The dose-lengt h product was 605.33 mGy-cm. COMPARISON: None FINDINGS: There are scattered areas of low attenuation in the cerebral white matter. There is no intr acranial hemorrhage, acute infarction, or abnormal intracranial mass lesion. The ventricles are nakita l in size. The orbits are normal. The paranasal sinuses are clear. The mastoid air cells are normal. IMPRESSION: 1. Moderate nonspecific cerebral white matter disease, which likely represents chronic small vessel i schemic disease. Reviewed, dictated and finalized at location A. IMPRESSION: 1. Moderate nonspecific cerebral white matter disease, which likely represents chronic small vessel ischemic disease.
--- NOTE | ~2019-05-29 | US_ITS ---
EXAMINATION: US paracentesis abd w/image DATE: 05/30/2019 11:12 INDICATION: Ascites. TECHNIQUE: The skin was prepped and draped in sterile fashion. 1% lidocaine was used for local anesth esia. Under ultrasound guidance, a 5 Fr catheter with trochar was advanced into the ascites in the le ft lower quadrant. Fluid was aspirated. The catheter was removed, and a dressing was applied. There w ere no immediate complications. FINDINGS: Ultrasound images demonstrate ascites and the catheter within the fluid. IMPRESSION: 1. Successful ultrasound-guided paracentesis yielding 1300 mL of clear, yellow fluid. Reviewed, dictated and finalized at location A.
--- NOTE | ~2019-05-29 | CT_ITS ---
EXAMINATION: CT brain wo con DATE: 06/07/2019 09:47 INDICATION: Obtunded TECHNIQUE: Computed tomography (CT) of the head was performed without intravenous contrast. Sagittal and coronal reconstructions were performed. Automated exposure control and iterative reconstruction t echnique were employed. The dose-length product was 681.00 mGy-cm. COMPARISON: head CT dated 05/29/2019 FINDINGS: No acute intracranial hemorrhage, acute infarction or abnormal extra axial fluid collection. There is moderate scattered white matter hypoattenuation consistent with chronic small vessel ischemic diseas e. Symmetric prominence of the sulci and ventricles consistent with moderate diffuse cerebral volume loss. No mass/mass effect. Nasogastric tube passes through the right nasal cavity into the oropharynx and beyond the caudal margin of the [id number]. The orbits, paranasal sinuses and mastoid air pema ls are normal. IMPRESSION: 1. Age related changes including moderate diffuse volume loss and moderate scattered white matter hyp oattenuation consistent with chronic small vessel ischemic disease. Reviewed, dictated and finalized at location A. IMPRESSION: 1. Age related changes including moderate diffuse volume loss and moderate scat tered white matter hypoattenuation consistent with chronic small vessel ischemi c disease.
--- NOTE | ~2019-05-29 | XR_ITS ---
EXAMINATION: XR chest 1V portable EXAM DATE: 05/29/2019 15:49 INDICATION: Edema, shortness of breath. TECHNIQUE: Portable AP frontal chest x-ray was obtained. Comparison is made to prior examination from 04/02/2019. FINDINGS: There is cardiomegaly and pulmonary vascular congestion. Probable mild to moderate pulmonar y edema, with mild improvement compared to prior study. No confluent consolidation. There are small p leural effusions. No pneumothorax. Findings are consistent with CHF exacerbation. There is aortic art erial sclerosis. There are bony degenerative changes. Patient has diffuse idiopathic skeletal hyperos tosis (DISH). IMPRESSION: Findings consistent with CHF exacerbation. Reviewed, dictated and finalized at location A.
--- NOTE | ~2019-05-29 | XR_ITS ---
EXAMINATION: XR chest port-a-cath/central EXAM DATE: 05/29/2019 20:12 INDICATION: Central line placement. TECHNIQUE: Portable AP frontal chest x-ray was obtained. Comparison is made to prior examination from earlier same date. FINDINGS: Interval insertion of a right IJ venous line, no evidence of postprocedure pneumothorax. Th ere is cardiomegaly, pulmonary vascular congestion probably moderate pulmonary edema. Small pulmonary effusions. There is aortic arterial sclerosis. There are mild bony degenerative changes. IMPRESSION: 1. No evidence postprocedure pneumothorax. 2. Findings consistent with CHF exacerbation. Reviewed, dictated and finalized at location A.
--- NOTE | ~2019-05-29 | XR_ITS ---
XR chest 1V portable DATE: 06/05/2019 05:35 INDICATION: Congestive heart failure. Acute respiratory failure. TECHNIQUE: Portable AP chest on 06/05/2019 at 0521 hours COMPARISON: 06/03/2019 portable AP chest at 0237 hours FINDINGS: Cardiomegaly, pulmonary vascular congestion and redistribution. There are infiltrates prima rily in the central and particularly lower lung zones, improved since 06/03/2019. Mild blunting of the costophrenic angles consistent with small pleural effusions. Aortic arch calcification. No central lines. An NG tube is noted in the stomach. Diffuse idiopathic skeletal hyperostosis of the thoracic spine. Diffuse osteopenia. IMPRESSION: Congestive heart failure and pulmonary edema, moderately improved since 06/03/2019 NG tube in stomach Reviewed, dictated and finalized at location A. IMPRESSION: Congestive heart failure and pulmonary edema, moderately improved s antoine 06/03/2019 NG tube in stomach
--- NOTE | ~2019-05-29 | XR_ITS ---
XR chest 1V portable 05/31/2019 18:36 Indication: Central line placement Procedure: AP portable chest Comparison: Comparison to multiple prior studies sequentially, with oldest reviewed study dated 11/2019. Findings: Cardiomegaly with interstitial edema. Small pleural effusions. Right IJ PICC line tip in th e SVC. No pneumothorax. Impression: 1: Cardiomegaly with interstitial edema. 2: Small pleural effusions. Reviewed, dictated and finalized at location A. Impression: 1: Cardiomegaly with interstitial edema. 2: Small pleural effusions.
--- NOTE | ~2019-05-29 | XR_ITS ---
EXAMINATION: XR chest port-a-cath/central DATE: 06/06/2019 13:11 INDICATION: Amish catheter placement TECHNIQUE: frontal view of the chest was obtained. COMPARISON: Chest radiograph dated 06/05/2019 FINDINGS: Interval placement of a large-bore right internal jugular central venous catheter with distal tip at the caudal superior vena cava. Proximal side port of a nasogastric tube is within the proximal body o f the stomach with distal tip collimated beyond the inferior margin of the [id number]. Persistent gradient of the lower lung predominant hazy airspace opacities throughout both lungs with more dense opacities at the bilateral lung bases consistent with small bilateral posteriorly layering pleural effusions and associated basilar atelectasis and/or pneumonia. No pneumothorax. Calcified ri ght perihilar nodule consistent with old granulomatous disease. Cardiomegaly with pulmonary vascular congestion. Atherosclerotic aorta. IMPRESSION: 1. Right internal jugular central venous catheter tip at the caudal superior vena cava. No pneumothor ax. 2. Small bilateral pleural effusions with bibasilar opacities which could represent atelectasis and/o r pneumonia. 3. Cardiomegaly with pulmonary vascular congestion. Pneumonia Reviewed, dictated and finalized at location A. IMPRESSION: 1. Right internal jugular central venous catheter tip at the caudal superior ve na cava. No pneumothorax. 2. Small bilateral pleural effusions with bibasilar opacities which could repre sent atelectasis and/or pneumonia. 3. Cardiomegaly with pulmonary vascular congestion. Pneumonia
--- NOTE | ~2019-05-29 | US_ITS ---
EXAMINATION: US right upper quadrant EXAM DATE: 06/07/2019 09:52 INDICATION: Elevated liver function tests and bilirubin. TECHNIQUE: Multiple grayscale and Doppler images of the abdomen right upper quadrant were obtained (b y a technologist who performed the scan) and subsequently reviewed. Correlation is made to paracentes is image 06/04/2019. FINDINGS: Trace peripancreatic fluid, significant improvement compared to amount of fluid before par acentesis performed on 06/03. The pancreatic head and body are normal in appearance. The pancreatic tail is not visualized. The l iver has normal echogenicity and contour. There are no focal liver lesions identified. There is no evidence of intrahepatic biliary duct dilation. The IVC, hepatic veins appear dilated, nonthrombosed. Portal vein has pulsatile biphasic Doppler wave form, demonstrating reversal of flow during what is most likely systole, could be transmitted from th e dilated hepatic veins. This patient have history of right heart failure? Portal venous flow was see n in the hepatopedal, normal direction and has normal Doppler waveform. No right-sided hydronephrosi s. Common bile duct measures 3-4 mm, which is normal. Gallbladder is contracted with mild diffuse wall t hickening at 4 mm, most likely from underlying cirrhosis. Technologist performing exam reports patie nt did not demonstrate sonographic Cabrales's sign. Please note that this sign is less reliable in pat ients who have received pain medication. IMPRESSION: 1. Mild nonspecific gallbladder wall thickening could be from underlying right heart failure, fluid s tatus, cirrhosis or hypoproteinemia. No cholelithiasis or Cabrales's sign. 2. Biphasic portal venous waveform, could be from passive venous congestion and/or indicate portal ve nous hypertension. Reviewed, dictated and finalized at location A. IMPRESSION: 1. Mild nonspecific gallbladder wall thickening could be from underlying right heart failure, fluid status, cirrhosis or hypoproteinemia. No cholelithiasis or Cabrales's sign. 2. Biphasic portal venous waveform, could be from passive venous congestion and /or indicate portal venous hypertension.
--- NOTE | ~2019-05-29 | XR_ITS ---
EXAMINATION: XR chest 1V portable INDICATION: Acute respiratory failure TECHNIQUE: Portable AP chest at 0237 hours COMPARISON: 05/31/2019 FINDINGS: The right internal jugular catheter has been removed. There is unchanged cardiomegaly. Diff use interstitial and airspace opacities are present with slight worsening in the central lung zones. There are small pleural effusions. No pneumothorax is identified. IMPRESSION: 1. Diffuse lung disease with slight worsening in the mid lung zones, consistent with pulmonary edema and/or pneumonia and/or atelectasis. 2. Stable cardiomegaly. 3. Small pleural effusions. Reviewed, dictated and finalized at location A.
--- NOTE | ~2019-05-29 | XR_ITS ---
XR abdomen NG/feed tube insert DATE: 06/03/2019 23:01 INDICATION: NG tube insertion TECHNIQUE: Portable AP view on 06/03/2019 at 2300 hours COMPARISON: None FINDINGS: NG tube is present in the mid stomach. Cardiomegaly, pulmonary vascular congestion and bilateral pulmonary infiltrates are noted. Nonspecific bowel gas pattern. Diffuse idiopathic skeletal hyperostosis of the thoracic spine. Osteopenia. IMPRESSION: NG tube in mid stomach Reviewed, dictated and finalized at Location A. Reviewed, dictated and finalized at location A. IMPRESSION: NG tube in mid stomach
--- NOTE | ~2019-05-29 | US_ITS ---
US paracentesis abd w/image DATE: 06/04/2019 13:04 INDICATION: Ascites TECHNIQUE: An appropriate site for percutaneous access at the mid to lower left abdomen was identifie d sonographically. The skin was prepared with sterile solution. Sterile drape was applied. 1% lidocaine local anesthetic was administered to the skin and underlying subcutaneous tissues. A single stick needle/catheter was introduced into the peritoneal cavity, yielding clear yellowish ascites at the hub of the needle. Th e catheter was advanced and the needle withdrawn. 2.45 m of clear yellow ascites was drained into vacuum containers. The patient showed no indication of discomfort. IMPRESSION: Uncomplicated sonographically guided percutaneous drainage of 2.45 L of clear yellowish a scites Reviewed, dictated and finalized at Location [facility]. Reviewed, dictated and finalized at location A. IMPRESSION: Uncomplicated sonographically guided percutaneous drainage of 2.45 L of clear yellowish ascites
--- NOTE | ~2019-05-29 | CT_ITS ---
EXAMINATION: CT abdomen pelvis wo con DATE: 05/29/2019 17:05 INDICATION: Abdominal pain and distention. TECHNIQUE: Computed tomography (CT) of the abdomen and pelvis was performed without intravenous contr ast. Automated exposure control and iterative reconstruction technique were employed. The dose-length product was 1255.94 mGy-cm. COMPARISON: None. FINDINGS: The visualized portions of the lung bases demonstrate small pleural effusions, right worse than left. There is mild dependent atelectasis bilaterally. Cardiomegaly is noted. No pericardial eff usion. There are coronary artery calcifications. The liver is normal. The gallbladder is normal in si ze. Gallbladder wall thickening is likely secondary to interstitial edema. The spleen, pancreas, adre nal glands, and right kidney are normal. There is a 2 mm stone in left kidney. There is diverticulosi s of the colon without evidence of diverticulitis. There are no dilated loops of bowel. The appendix is normal. There is a moderate volume of ascites. Body wall edema is noted. There are bilateral ingui nal hernias containing fat. There is mild thoracic spondylosis and moderate lumbar spondylosis. IMPRESSION: 1. Moderate volume of ascites. 2. Small pleural effusions. 3. Cardiomegaly. Reviewed, dictated and finalized at location A.
--- NOTE | ~2019-05-29 | XR_ITS ---
EXAMINATION: XR fl guide central line place DATE: 06/06/2019 13:18 INDICATION: Amish catheter placement TECHNIQUE: Single fluoroscopic spot image of the upper chest was obtained during procedure performed by Dr. Artis. Radiologist was not present for the imaging or procedure. The amount of fluoroscopy time used during this procedure was 5.9 minutes. COMPARISON: Radiograph dated 06/06/2019 at 1:12 PM FINDINGS: Images demonstrate marked clearly visualized nasogastric tube and more subtle large-bore right internet merchant al jugular central venous catheter projecting to the right of the peripheral atherosclerotic calcific ations of the aortic arch. Both extend beyond the inferior margin of the [id number] with distal ti ps not visualized. IMPRESSION: 1. Fluoroscopy utilized during central venous catheter placement. See procedure note for further deta il. Reviewed, dictated and finalized at location A. IMPRESSION: 1. Fluoroscopy utilized during central venous catheter placement. See procedure note for further detail.
--- NOTE | ~2019-05-29 | XR_ITS ---
EXAMINATION: XR chest 1V portable EXAM DATE: 06/08/2019 05:55 INDICATION: Septic shock. TECHNIQUE: Portable AP frontal chest x-ray was obtained. Comparison is made to prior examination from 06/06/2019, 06/04. FINDINGS: There is a nasogastric tube seen with tip collimated off the study, but below the left giovanny diaphragm. The cardiac silhouette is enlarged. There is pulmonary vascular congestion. Diffuse abn ormal airspace disease, could be edema/ARDS and/or pneumonia. There is likely moderate left pleural e ffusion. No pneumothorax. There is aortic arterial sclerosis. There are bony degenerative changes. Compared to last 2 days, mild interval progression in the airspace disease. IMPRESSION: 1. Cardiomegaly, congestion and extensive bilateral edema and/or pneumonia. 2. Moderate left pleural effusion, adjacent atelectasis. Reviewed, dictated and finalized at location A.
--- NOTE | 2019-05-29 14:35 | ED.ABDPAIN ---
HPI - Abdominal Pain General Chief Complaint: Abdominal Pain Stated Complaint: SOB Time Seen by Provider: 05/29/19 14:19 Source: RN notes reviewed Mode of arrival: EMS Limitations: clinical condition History of Present Illness HPI narrative: Pt is a 68 y/o Black female presenting to the ED c/o ABD pain. ED nurse reports the pt's skilled nursing has noticed the pt has had increasing ABD swelling over the past 5 days. Per nurse, the pt has been at the skilled nursing for 5 days after being discharged from [place] with a Diagnosis of cirrhosis. HPI is limited due to pt's clinical condition. All information provided by ED nurse. Pertinent past history: other (Cirrhosis) Onset (ago): day(s) (5) Related Data Home Medications Medication Instructions Recorded Confirmed amlodipine 10 mg PO DAILY 03/20/19 03/24/19 atorvastatin 80 mg PO HS 03/20/19 03/24/19 budesonide-formoterol 2 puff INHALATION Q12H 03/20/19 03/24/19 ferrous sulfate 325 mg PO DAILY 03/20/19 03/24/19 furosemide 80 mg PO DAILY 03/20/19 03/24/19 haloperidol decanoate 100 mg IM MONTHLY 03/20/19 03/24/19 metformin 1,000 mg PO BID 03/20/19 03/24/19 metolazone 5 mg PO 3XW 03/20/19 03/24/19 pantoprazole 40 mg PO QAM 03/20/19 03/24/19 spironolactone 25 mg PO DAILY 03/20/19 03/24/19 acetaminophen 1,000 mg PO Q8H 03/24/19 03/24/19 aspirin 325 mg PO DAILY 03/24/19 03/24/19 donepezil [Aricept] 5 mg PO HS 03/24/19 03/24/19 fluticasone propion-salmeterol 1 puff INHALATION BID 03/24/19 03/24/19 lactulose 45 ml PO TID 03/24/19 03/24/19 memantine [Namenda] 5 mg PO QAM 03/24/19 03/24/19 nitroglycerin 0.3 mg SUBLINGUAL Q5-15M PRN 03/24/19 03/24/19 ondansetron HCl 4 mg PO Q8H PRN 03/24/19 03/24/19 Allergies Allergy/AdvReac Type Severity Reaction Status Date / Time Iodinated Contrast Media Allergy Unknown Verified 05/29/19 14:20 meperidine [From Demerol] Allergy Unknown Verified 05/29/19 14:20 [facility] Past Medical History Medical History A-fib Anxiety Cirrhosis COPD (chronic obstructive pulmonary disease) Dementia DM (diabetes mellitus) DVT (deep venous thrombosis) Encephalopathy HTN (hypertension) with goal to be determined Hyperlipidemia Pulmonary hypertension Schizophrenia Surgical History Surgical History Surgical history unknown Family History Family History Unknown No problems noted. Social History Social History Social History: no current smoking Smoking status: Never smoker Alcohol intake: unknown Substance use: unknown Additional living arrangements comments: Pt lives at [facility]. Spiritual care concerns: No Course Vital Signs Vital signs: Vital Signs Temperature 36.3 C L 05/29/19 14:15 Pulse Rate 81 05/29/19 14:15 Respiratory Rate 20 05/29/19 14:15 Blood Pressure 71/53 L 05/29/19 14:15 Pulse Oximetry 87 L 05/29/19 14:15 Temperature 36.3 C L 05/29/19 14:15 Pulse Rate 81 05/29/19 14:15 Respiratory Rate 20 05/29/19 14:15 Blood Pressure 71/53 L 05/29/19 14:15 Pulse Oximetry 87 L 05/29/19 14:15 Discharge Plan Discharge Prescriptions: No Action atorvastatin 80 mg Tablet 80 mg PO HS RF: 0 haloperidol decanoate 100 mg/mL Solution 100 mg IM MONTHLY RF: 0 metolazone 5 mg Tablet 5 mg PO 3XW RF: 0 spironolactone 25 mg Tablet 25 mg PO DAILY RF: 0 furosemide 80 mg Tablet 80 mg PO DAILY RF: 0 pantoprazole 40 mg Tablet,Delayed Release (Dr/Ec) 40 mg PO QAM RF: 0 ferrous sulfate 325 mg (65 mg iron) Tablet 325 mg PO DAILY RF: 0 metformin 1,000 mg Tablet 1,000 mg PO BID RF: 0 budesonide-formoterol 80-4.5 mcg/actuation Hfa Aerosol Inhaler 2 puff INHALATION Q12H RF: 0 amlodipine 10 mg Tablet 10 mg PO DAILY RF: 0 aspirin 325 mg Tablet 325 m
--- NOTE | 2019-05-29 14:40 | ECG_ITS ---
Measurements Intervals [place] Rate: 54 P: 32 TX: 226 QRS: 143 QRSD: 99 T: 90 QT: 448 QTc: 428 Interpretive Statements SINUS BRADYCARDIA WITH FIRST DEGREE AV BLOCK RIGHT AXIS DEVIATION LEFT ATRIAL ENLARGEMENT INCOMPLETE RIGHT BUNDLE BRANCH BLOCK MINIMAL Q WAVES- INFERIOR LEADS BORDERLINE T WAVE ABNORMALITY- LATERAL LEADS BASELINE WANDER- V4-V6 ABNORMAL ECG Electronically Signed On 05-29-2019 15:56:31 CDT by Omi Nuno D.O.
--- NOTE | 2019-05-29 14:45 | ED.GENADULT ---
HPI - General Adult General Chief complaint: Abdominal Pain Stated complaint: SOB Time Seen by Provider: 05/29/19 14:19 Source: RN notes reviewed Mode of arrival: EMS Limitations: clinical condition History of Present Illness HPI narrative: Pt is a 68 y/o Black female presenting to the ED c/o ABD pain. ED nurse reports the pt's custodial has noticed the pt has had increasing ABD swelling over the past 5 days. Per nurse, the pt has been at the custodial for 5 days after being discharged from [place] with a Diagnosis of cirrhosis. HPI is limited due to pt's clinical condition. All information provided by ED nurse. Associated symptoms: denies other symptoms (HPI is limited) Related Data Home Medications Medication Instructions Recorded Confirmed budesonide-formoterol 2 puff INHALATION Q12H 03/20/19 03/24/19 furosemide 80 mg PO DAILY 03/20/19 03/24/19 haloperidol decanoate 100 mg IM MONTHLY 03/20/19 03/24/19 metolazone 5 mg PO 3XW 03/20/19 03/24/19 pantoprazole 40 mg PO QAM 03/20/19 03/24/19 spironolactone 25 mg PO DAILY 03/20/19 03/24/19 acetaminophen 1,000 mg PO Q8H 03/24/19 03/24/19 lactulose 30 ml PO TID 03/24/19 03/24/19 albuterol sulfate 2 puff INHALATION QID PRN 05/29/19 aspirin [Aspir-81] 81 mg PO DAILY 05/29/19 carvedilol 12.5 mg PO BID 05/29/19 divalproex 250 mg PO Q12H 05/29/19 donepezil [Aricept] 5 mg PO HS 05/29/19 memantine [Namenda] 5 mg PO QAM 05/29/19 nicotine 1 patch TRANSDERMAL DAILY 05/29/19 olanzapine 5 mg PO HS 05/29/19 potassium chloride 20 meq PO DAILY 05/29/19 Allergies Allergy/AdvReac Type Severity Reaction Status Date / Time Iodinated Contrast Media Allergy Unknown Verified 05/29/19 14:20 meperidine [From Demerol] Allergy Unknown Verified 05/29/19 14:20 Review of Systems Review of Systems: Narrative: ROS is limited due to pt's clinical condition. All systems reviewed & are unremarkable except as noted in HPI and below Gastrointestinal: Gastrointestinal: Reports other (ABD swelling) [facility] Past Medical History Medical History A-fib Anxiety Cirrhosis COPD (chronic obstructive pulmonary disease) Dementia DM (diabetes mellitus) DVT (deep venous thrombosis) Encephalopathy HTN (hypertension) with goal to be determined Hyperlipidemia Pulmonary hypertension Schizophrenia Surgical History Surgical History Surgical history unknown Family History Family History Unknown No problems noted. Social History Social History Social History: no current smoking Smoking status: Never smoker Alcohol intake: unknown Substance use: unknown Additional living arrangements comments: Pt lives at [facility]. Spiritual care concerns: No Exam Const: General: no acute distress and ill appearing chronically Other: patient with slow speech, spacey HENMT: Head: normocephalic and atraumatic Face and sinus: dry mucous membranes and other (dry lips) Mouth: Yes tongue normal Eyes: Conjunctivae: conjunctivae normal Pupils: Equal, round and reactive pupils present EOM: EOMs intact bilaterally Chest: Chest palpation & inspection: normal inspection of the chest Resp: Effort & Inspection: normal respiratory effort Auscultation: crackles bilateral in the lower lung king Cardio: Rate: bradycardic Rhythm: regular rhythm Heart sounds: no murmurs GI: Inspection: distended GI Palp: Yes Soft to palpation and No Tenderness to palpation present (GI) Percussion: Yes Fluid wave present Skin: General skin exam: normal color Rashes: no rashes Neuro: General: moves all extremities Other: patient with slow speech Extrem: General: edema bilateral Course Course Emergency Course: Patient presented from custodial due to family concern of fluid overload. Patient does
[2019-05-29 15:37] LABS: Basophils Percent Auto 0.6 % (0.2-1.2); Eosinophils Percent Auto 0.2 % (0-4.4); Hematocrit 46.2 % (37.0-47.0); Hemoglobin 13.1 g/dL (12.0-15.0); Immature Granulocyte Absolute 0.04 K/mm3 (0.00-0.031); Immature Granulocyte Percent A 0.8 % (0-0.5); Lymphocytes Absolute Auto 0.85 K/mm3 (0.9-3.2); Lymphocytes Percent Auto 17.3 % (18.3-44.2); Mean Corpuscular HGB Conc 28.4 g/dl (32-36); Mean Corpuscular Hemoglobin 26.6 pg (26-34); Mean Corpuscular Volume 93.9 fl (80-100); Mean Platelet Volume 9.3 fl (7.4-10.4); Monocytes Absolute Auto 0.9 K/mm3 (0.1-0.6); Monocytes Percent Auto 17.3 % (2.6-8.5); Neutrophils Absolute Auto 3.1 K/mm3 (1.3-6.7); Neutrophils Percent Auto 63.8 % (45.5-73.1); Nucleated Red Blood Cells Absolute Auto 0.2 K/mm3 (0.0-0.012); Nucleated Red Blood Cells Perc 3.9 % (0.0-0.2); Platelet Count Result 392 k/mm3 (150-375); Red Blood Count 4.92 M/mm3 (4.2-5.4); Red Cell Distribution Width 17.9 % (11.5-14.5); White Blood Count 4.9 K/mm3 (4.5-10.0)
[2019-05-29 15:46] LABS: INR 1.3; Prothrombin Time 15.8 Seconds (11.1-14.7)
[2019-05-29 15:47] LABS: Partial Thromboplastin Time 26.9 SECONDS (22.3-36.8)
[2019-05-29 15:51] LABS: Ammonia 18 umol/L (9-30); Lactic Acid Reflex 3.2 mmol/L (0.7-2.1)
[2019-05-29 15:52] LABS: Alanine Aminotransferase 78 U/L (4-35); Albumin Level 2.9 g/dL (3.5-5.1); Alkaline Phosphatase 91 U/L (38-126); Aspartate Amino Transferase 93 U/L (14-36); Bilirubin,Total 0.2 mg/dL (0.2-1.3); Blood Urea Nitrogen 69 mg/dL (7-17); Calcium 7.9 mg/dL (8.4-10.2); Carbon Dioxide 22 mmol/L (22-30); Chloride 91 mmol/L (98-107); Estimated CRCL calculation 24 ml/min; Estimated Glomerular Filt Rate 21; Glucose 191 mg/dL (65-105); Potassium 3.6 mmol/L (3.4-5.0); Sodium 126 mmol/L (137-145)
[2019-05-29 15:58] LABS: Hypochromasia 1+ (NORMAL)
[2019-05-29] MEDS: SODIUM CHLORIDE 0.9% IV 1,000 ML 999 ML IV CONT ×2 (16:11→19:24)
[2019-05-29 16:16] LABS: NT Pro B Type Natriuretic Pept 14400 PG/ML (5-100)
--- NOTE | 2019-05-29 16:53 | PC.NURSE ---
CALLED PT'S DAUGHTER NAVI WORKS AT [phone]. SHE STATES SHE WILL BE LEAVING WORK AT 5PM, PICKING UP AND DROPPING OF KIDS TO THE HOUSE AND THEN WILL BE UP TO THE HOSPITAL TO SPEAK WITH DR SCHILLING AND HER MOTHER.
[2019-05-29 17:11] LABS: Add Urine Microscopic? YES; Amorphous Sediment Urine Moderate; Appearance Urine Clear (Clear); Bacteria Urine Trace /hpf; Bilirubin Urine Negative (Negative); Blood Urine 2+ (Negative); Color Urine Yellow (Yellow); Glucose Urine UA Negative (Negative); Hyaline Casts Urine 20-29 /lpf; Ketones Urine Negative (Negative); Leukocyte Esterase Ur Negative LEU/UL (Negative); Mucus Urine Rare /lpf; Nitrate Urine Negative (Negative); Protein Urine 2+ mg/dL (Negative); Specific Grav Ur 1.014 (1.001-1.035); Squamous Epithelial Cell Urine Rare /hpf (Few); Urobilinogen Urine Negative mg/dL (<2.0); WBC Urine 0-3 /hpf
[2019-05-29 18:34] LABS: Reflex Lactic Acid Yes or No Add Lactic
--- NOTE | 2019-05-29 19:21 | PC.NURSE ---
Patient on 3L O2 prior to this RN's arrival.
--- NOTE | 2019-05-29 19:30 | PC.NURSE ---
EDP Harrington in room for central line placement.
[2019-05-29 20:29] LABS: Lactic Acid 2.1 mmol/L (0.7-2.1)
[2019-05-29 20:51] LABS: Alveolar/Arterial O2 Gradient 181.7 mmHg; Base Excess ABG -18.2 mEq/l (+/-2.0); Carboxyhemoglobin 0.2 % THb (0-2.0); Fractional Inspired Oxygen 32 %; HCO3 ABG 8.1 mEq/l (22.0-26.0); Methemoglobin ABG 3.6 %THb (0-1.5); Oxygen Content ABG 1.7 %vol (16.0-22.0); PO2 FiO2 Ratio Arterial Blood 0.69 %; Reduced Hemoglobin 74.2 %THb (0-5.0)
[2019-05-29 20:52] LABS: pH ABG 7.206 (7.350-7.450)
[2019-05-29 20:53] LABS: PCO2 ABG 20.9 mmHg (35.0-45.0)
[2019-05-29 20:54] LABS: Oxygen Saturation ABG 29.1 % (95.0-100.0)
[2019-05-29 20:55] LABS: Device NASAL CANNULA; Site Drawn LEFT BRACHIAL; Total Hemoglobin 5.3 g/dL (12.0-18.0)
[2019-05-29 21:07] LABS: Hematocrit 44.8 % (37.0-47.0); Hemoglobin 12.8 g/dL (12.0-15.0)
[2019-05-29] MEDS: NOREPINEPHRINE 8 MG/D5W 250 ML 8 MG/250 ML BAG 9.4 MG IV CONT (21:14)
--- NOTE | 2019-05-29 21:33 | PCRCNOTE ---
the values for the abg were out of range; RT was unable to obtain another sample; ED physician is aware
[2019-05-29] MEDS: LACTATED RINGERS 1,000 ML 125 ML IV CONT (23:01)
[2019-05-29] MEDS: DOBUTamine 250 MG/D5W 250 ML 250 MG/250 ML BAG 17 MG IV CONT (23:02)
--- NOTE | 2019-05-29 23:20 | PC.NURSE ---
This patient, Sendy Malin, was admitted to Intensive Care Unit-9. Patient/family oriented to hospital policies and general routines including ID bracelet, bed and alarms, visiting hours, pain management, procedures, bathroom and other care routines, personal items, smoking policy, room service/diet, and visiting hours. Valuables list has been completed. Information on how to activate the Rapid Response Team has been discussed. Patient/Family are encouraged to report perceived risks to care and to ask questions if they do not understand what they are told or what they should do.
--- NOTE | 2019-05-29 23:30 | PM.IMHP ---
H&P: HPI History of Present Illness Chief complaint: Increased abdominal swelling Narrative: Date and time of patient contact: 05/29/2019 at 11:30 p.m. Sendy Malin is a 68 year old female with a past medical history of cirrhosis, severe pulmonary hypertension and recent hospitalization for respiratory failure requiring intubation (03/24- 04/04) to the ER from intermediate due to increased abdominal swelling. On arrival to the ER was markedly hypotensive with blood pressure of 71/53. She received 2 L of normal saline bolus but still had refractory hypotension. Patient had a right IJ placed by ER staff. She she was started on Levophed at 5 mg and dobutamine at 2.5 mcg with improvement in her blood pressures to 103/67. Initially the patient was noted to be noted to be tachycardic with heart rates in the 110s but her heart rates have come down to around 50 currently. She was afebrile on arrival to the ER but felt cold when she arrived to the ICU. Core temperature was initially recorded at 95.6. However the patient's temperature rapidly corrected to 97.6. Labs in the ER were obtained which demonstrated acute renal failure with a creatinine of 2.7. In the ER the patient had denied any complaints and was repeatedly requesting a sandwich. The patient's daughter reported to the ER staff that she was concerned the patient was fluid overloaded S she gained 20 lb in 5 days. Patient had been hospitalized at [place] for fluid overload and was discharged 5 days ago. The family did not want the patient transferred to [facility] as she ?did not have a special condition which she needed to be transferred . She was not given antibiotics in the ER because she did not have a fever Owens white blood cell count. The patient is only oriented to person currently. I do not know what the patient's baseline orientation. She does seem encephalopathic but does have a history of schizophrenia and dementia. Her ammonia level is normal. I suspect the patient is more confused than baseline as the daughter was talking to the patient about whether she wanted to have everything done or if she wanted to go on hospice. The patient agreed to have everything done while she was in the ER. I am having difficulty having the patient answers simple questions. Given the patient's lactic acidosis, hypothermia, and hypotension I am concerned for septic shock and or in combination with cardiogenic shock. Patient also has had worsening her meld score raising concern for possible hepatorenal syndrome or cardiorenal syndrome. The patient was subsequently admitted to the ICU in this setting. Review of Systems Review of Systems: ROS unobtainable: unobtainable due to mental status PMFSH Past Medical History Medical History (Updated 05/30/19 @ 00:24 by Jody Sutton DO) Anxiety CAP (community acquired pneumonia) Cirrhosis Dementia DM (diabetes mellitus) DVT (deep venous thrombosis) Encephalopathy Hyperlipidemia Hypertension Respiratory failure Acute hypoxic hypercapnic respiratory failure March 2019 requiring intubation Right heart failure Schizophrenia Severe pulmonary arterial systolic hypertension RVSP of 130 on echocardiogram from March 2019 Surgical History Surgical History Surgical history unknown Family History Family History Unknown No problems noted. Social History Social History (Updated 05/30/19 @ 01:26 by Jody Sutton DO) Social History: Code status: Full code with IDPA form on chart Smoking status: Former smoker Tobacco type: cigarettes Alcohol intake: unknown Substance use: unknown Living arrangements: intermediate Additional living arrangements comments: Pt lives at [facility]. Spiritual care concerns: No (Religious) Agree to blood products: Yes Meds Home Medications and Allergies Barrett
[2019-05-29 23:39] LABS: Alveolar/Arterial O2 Gradient 103.9 mmHg; Carboxyhemoglobin 0.7 % THb (0-2.0); Fractional Inspired Oxygen 32 %; Methemoglobin ABG 0.5 %THb (0-1.5); Oxygen Content ABG 17.6 %vol (16.0-22.0); Oxygen Saturation ABG 94.2 % (95.0-100.0); Oxyhemoglobin 91.7 % THb (90.0-100.0); PO2 ABG 77.5 mmHg (80.0-100.0); PO2 FiO2 Ratio Arterial Blood 2.42 %; Reduced Hemoglobin 7.1 %THb (0-5.0); Total Hemoglobin 13.6 g/dL (12.0-18.0)
[2019-05-29 23:42] LABS: Device NASAL CANNULA; Modified Allen's Test Pass; Site Drawn RIGHT BRACHIAL; pH ABG 7.294 (7.350-7.450)
[2019-05-30] VITALS (30 sets, daily range): BP systolic 93–129; BP diastolic 47–81; PULSE 51–66; RESP 10–21; TEMP 36–36.7; O2SAT 91–98
[2019-05-30] MEDS: DOBUTamine 250 MG/D5W 250 ML 250 MG/250 ML BAG 25.1 MG IV CONT (00:30)
[2019-05-30] MEDS: ALBUMIN HUMAN 25% 25 GM/100 ML 100 ML IVPB ×5 (00:46→23:58)
[2019-05-30 01:05] LABS: Glucose Point of Care 214 (65-105)
[2019-05-30] MEDS: DONEPEZIL HCL 5 MG TABLET PO ×2 (01:41→20:34)
[2019-05-30] MEDS: DIVALPROEX SODIUM 250 MG TABEC PO ×3 (01:41→20:34)
[2019-05-30] MEDS: ALBUTEROL SULFATE NEB 2.5 MG/0.5 ML INH 5 MG INHALATION ×4 (03:19→20:01)
[2019-05-30] MEDS: IPRATROPIUM BR 0.02% INH SOLN 0.5 MG/2.5 ML VIAL INHALATION ×4 (03:19→20:01)
[2019-05-30 05:24] LABS: Basophils Percent Auto 0.7 % (0.2-1.2); Eosinophils Percent Auto 0.2 % (0-4.4); Hematocrit 41.2 % (37.0-47.0); Hemoglobin 11.6 g/dL (12.0-15.0); Immature Granulocyte Absolute 0.03 K/mm3 (0.00-0.031); Immature Granulocyte Percent A 0.7 % (0-0.5); Lymphocytes Absolute Auto 0.87 K/mm3 (0.9-3.2); Lymphocytes Percent Auto 19.8 % (18.3-44.2); Mean Corpuscular HGB Conc 28.2 g/dl (32-36); Mean Corpuscular Hemoglobin 26.3 pg (26-34); Mean Corpuscular Volume 93.4 fl (80-100); Mean Platelet Volume 9.2 fl (7.4-10.4); Monocytes Absolute Auto 0.9 K/mm3 (0.1-0.6); Monocytes Percent Auto 19.5 % (2.6-8.5); Neutrophils Absolute Auto 2.6 K/mm3 (1.3-6.7); Neutrophils Percent Auto 59.1 % (45.5-73.1); Nucleated Red Blood Cells Absolute Auto 0.2 K/mm3 (0.0-0.012); Nucleated Red Blood Cells Perc 3.9 % (0.0-0.2); Platelet Count Result 347 k/mm3 (150-375); Red Blood Count 4.41 M/mm3 (4.2-5.4); Red Cell Distribution Width 17.7 % (11.5-14.5); White Blood Count 4.4 K/mm3 (4.5-10.0)
[2019-05-30 05:34] LABS: INR 1.5; Prothrombin Time 17.5 Seconds (11.1-14.7)
[2019-05-30 05:35] LABS: Partial Thromboplastin Time 28.2 SECONDS (22.3-36.8)
[2019-05-30 05:36] LABS: Alanine Aminotransferase 61 U/L (4-35); Albumin Level 2.8 g/dL (3.5-5.1); Alkaline Phosphatase 72 U/L (38-126); Aspartate Amino Transferase 58 U/L (14-36); Bilirubin,Total 0.1 mg/dL (0.2-1.3); Blood Urea Nitrogen 65 mg/dL (7-17); Calcium 7.4 mg/dL (8.4-10.2); Carbon Dioxide 24 mmol/L (22-30); Chloride 92 mmol/L (98-107); Estimated Glomerular Filt Rate 23; Glucose 203 mg/dL (65-105); Potassium 3.3 mmol/L (3.4-5.0); Sodium 128 mmol/L (137-145)
[2019-05-30] MEDS: LACTATED RINGERS 1,000 ML 125 ML IV CONT (05:55)
--- NOTE | 2019-05-30 06:01 | PC.NURSE ---
Grace called by this RN at 0045 to verify that pt can have albumin, blood, and blood derived products. family called marcelino to patient's confusion. Grace states that patient is Restorationist, she has had blood transfusions in the past, and she can have anything necessary for treatment.
--- NOTE | 2019-05-30 08:00 | WPDCNINT ---
Assessment and Plan Assessment and plan (1) Shock: Code(s): R57.9 - Shock, unspecified Status: Acute Assessment and Plan: Multifactorial - cardiogenic versus septic. patient has severe right heart failure suggesting low cardiac output, hypothermia and renal failure. although patient workup and history does not suggest infection, it cannot be ruled out as patient is a very poor historian. Patient is not tender on her abdomen. Patient was started on empiric Rocephin for SBP After giving IV fluids. - Culture sent and pending - continue Rocephin - ultrasound-guided paracentesis- diagnostic and therapeutic - continue Levophed and dobutamine (2) Right heart failure: Qualifiers: Heart failure chronicity: acute on chronic Qualified Code(s): I50.813 - Acute on chronic right heart failure Code(s): I50.810 - Right heart failure, unspecified Status: Acute Assessment and Plan: Patient has severe pulmonary hypertension and biventricular heart failure. Patient is overall volume overloaded but may be intravascularly depleted due to diuresis. Patient was started on IV fluids and dobutamine infusion. Will increase dobutamine infusion to 7.5 mcg. ECHO 04/03/2019 1. Left ventricular systolic function is hyperdynamic, estimated at >70%. 2. There is moderate concentric increased left ventricular wall thickness. 3. The septum has a D sign indicating RV pressure overload. 4. There is mild to moderate tricuspid valve regurgitation. 5. Severe pulmonary hypertension, estimated pulmonary arterial systolic pressure is 130 mmHg. 6. Biatrial dilation. 7. Saline contrast is negative for intracardiac shunt. (3) Cirrhosis of liver with ascites: Qualifiers: Hepatic cirrhosis type: unspecified hepatic cirrhosis Qualified Code(s): K74.60 - Unspecified cirrhosis of liver; R18.8 - Other ascites Code(s): K74.60 - Unspecified cirrhosis of liver; R18.8 - Other ascites Status: Acute Assessment and Plan: ammonia level is normal. Vitamin K for coagulopathy. Diagnostic and therapeutic paracentesis for ascites. (4) Acute renal failure (ARF): Qualifiers: Acute renal failure type: unspecified Qualified Code(s): N17.9 - Acute kidney failure, unspecified Code(s): N17.9 - Acute kidney failure, unspecified Status: Acute Assessment and Plan: Multifactorial - is most likely prerenal from intravascular volume depletion from diuretics and cirrhosis, could have component of hepatorenal or cardiorenal. Cautious rehydration as patient is overall volume overloaded. Levophed and dobutamine to maintain blood pressure and perfusion monitor electrolytes, intake and output, creatinine intravenous albumin Replace low potassium (5) Acute hyponatremia: Code(s): E87.1 - Hypo-osmolality and hyponatremia Status: Acute Assessment and Plan: patient has chronic hyponatremia which is slightly worse. Continue gentle hydration and monitor levels. (6) Ascites: Code(s): R18.8 - Other ascites Status: Acute (7) Pulmonary hypertension: Code(s): I27.20 - Pulmonary hypertension, unspecified Status: Acute (8) DM (diabetes mellitus): Code(s): E11.9 - Type 2 diabetes mellitus without complications Status: Chronic Assessment and Plan: sliding scale at this time (9) Coagulopathy: Code(s): D68.9 - Coagulation defect, unspecified Status: Acute Assessment and Plan: Secondary to cirrhosis. Vitamin K 10 mg subcutaneous x1 (10) Encephalopathy: Code(s): G93.40 - Encephalopathy, unspecified Status: Acute Assessment and Plan: multifactorial. Ammonia level is normal. head CT report reviewed. Avoid sedatives. continue lactulose Additional Plan DVT prophylaxis - heparin subcutaneous Stress ulcer prophylaxis - continue home PPI Nutrition - r
[2019-05-30] MEDS: DOBUTamine 250 MG/D5W 250 ML 250 MG/250 ML BAG 37.6 MG IV CONT ×3 (08:56→22:02)
[2019-05-30] MEDS: HEPARIN SODIUM 5,000 UNITS/ML VIAL 5000 UNITS SUB-Q ×2 (08:57→20:34)
[2019-05-30 09:32] LABS: Glucose Point of Care 161 (65-105)
[2019-05-30] MEDS: PHYTONADIONE INJ 10 MG/ML AMP SUB-Q (09:48)
[2019-05-30] MEDS: ASPIRIN 81 MG ENTERIC TABLET PO (12:51)
[2019-05-30] MEDS: LACTULOSE 20 GM/30 ML UDC 30 GM PO ×2 (12:52→17:25)
[2019-05-30] MEDS: MEMANTINE 5 MG TABLET PO (12:52)
[2019-05-30] MEDS: SODIUM BICARBONATE TAB 650 MG TABLET 1300 MG PO ×2 (12:53→17:25)
[2019-05-30] MEDS: POTASSIUM CHLORIDE 20 MEQ TABLET 40 MEQ PO (12:54)
--- NOTE | 2019-05-30 12:56 | PC.NURSE ---
Pt was NPO for 0900 medication administration, and pt received medications at 1255. Therefore, 1300 scheduled medications - bicarb and lactulose were misdosed.
[2019-05-30 13:09] LABS: Glucose Point of Care 168 (65-105)
[2019-05-30 13:37] LABS: Appearance Peritoneal Fluid Clear (Clear); Color Peritoneal Fluid Yellow (Colorless); Source Peritoneal Fluid Peritoneal Fluid
[2019-05-30 13:38] LABS: Nucleated Cells Peritoneal Flu 42 /uL (0-500); RBC Peritoneal Fluid 31 /uL (0-100000)
[2019-05-30 13:39] LABS: Lymphocytes Peritoneal Fluid 10 %; Macrophages Peritoneal Fluid 26 %; Mesothelial Cells Peritoneal Fluid 51 %; Monocytes Peritoneal Fluid 13 %
[2019-05-30] MEDS: LACTATED RINGERS 1,000 ML 75 ML IV CONT (15:06)
[2019-05-30 17:22] LABS: Glucose Point of Care 144 (65-105)
--- NOTE | 2019-05-30 19:59 | PCRCNOTE ---
Window of time for administration has passed. See next scheduled administration.
[2019-05-30] MEDS: ACETAMINOPHEN 500 MG TABLET PO (20:31)
[2019-05-30 20:54] LABS: Glucose Point of Care 172 (65-105)
[2019-05-31] VITALS (23 sets, daily range): BP systolic 96–151; BP diastolic 48–95; PULSE 58–74; RESP 11–23; TEMP 36.4–36.8; O2SAT 91–97
[2019-05-31 00:08] LABS: Glucose Point of Care 181 (65-105)
[2019-05-31] MEDS: IPRATROPIUM BR 0.02% INH SOLN 0.5 MG/2.5 ML VIAL INHALATION ×2 (02:34→20:06)
[2019-05-31] MEDS: ALBUTEROL SULFATE NEB 2.5 MG/0.5 ML INH 5 MG INHALATION ×2 (02:34→20:06)
[2019-05-31] MEDS: LACTATED RINGERS 1,000 ML 75 ML IV CONT (03:43)
[2019-05-31] MEDS: DOBUTamine 250 MG/D5W 250 ML 250 MG/250 ML BAG 37.6 MG IV CONT (04:44)
[2019-05-31] MEDS: ACETAMINOPHEN 500 MG TABLET PO (05:29)
[2019-05-31] MEDS: ALBUMIN HUMAN 25% 25 GM/100 ML 100 ML IVPB ×4 (05:30→23:43)
[2019-05-31 05:51] LABS: Glucose Point of Care 173 (65-105)
--- NOTE | 2019-05-31 07:00 | WPDINTPN ---
Progress Note: A&P Assessment and Plan (1) Shock: Code(s): R57.9 - Shock, unspecified Status: Acute Assessment and Plan: Multifactorial - cardiogenic, dehydration versus septic. patient has severe right heart failure suggesting low cardiac output, hypothermia and renal failure. although patient workup and history does not suggest infection, it cannot be ruled out as patient is a very poor historian. Patient is not tender on her abdomen. Patient was started on empiric Rocephin for SBP After giving IV fluids. - Culture sent and pending - continue Rocephin - see below - ultrasound-guided paracentesis- diagnostic and therapeutic - done yesterday 1300 mL fluid removed - Levophed weaned off - continue dobutamine at this time - Decrease IV fluids today (2) SBP (spontaneous bacterial peritonitis): Code(s): K65.2 - Spontaneous bacterial peritonitis Status: Acute Assessment and Plan: patient was started on empiric Rocephin at the time of admission for suspected SBP. peritoneal fluid sent to lab yesterday is not suggestive peritonitis as neutrophil count is low. Patient also clinically does not suggest spontaneous bacterial peritonitis as she is not tender or afebrile. Other studies from peritoneal fluid are still pending including Gram stain culture and albumin. I will wait for those results before discontinuing Rocephin and will continue with the dose today. (3) Right heart failure: Qualifiers: Heart failure chronicity: acute on chronic Qualified Code(s): I50.813 - Acute on chronic right heart failure Code(s): I50.810 - Right heart failure, unspecified Status: Acute Assessment and Plan: Patient has severe pulmonary hypertension and biventricular heart failure. Patient is overall volume overloaded but was intravascularly depleted due to diuresis. Patient was started on IV fluids and dobutamine infusion which has led to improvement in renal function and blood pressure. Patient was having frequent PVCs last night as per nursing staff. I will dcrease dobutamine infusion to 5 mcg and continue for another 24 hours ECHO 04/03/2019 1. Left ventricular systolic function is hyperdynamic, estimated at >70%. 2. There is moderate concentric increased left ventricular wall thickness. 3. The septum has a D sign indicating RV pressure overload. 4. There is mild to moderate tricuspid valve regurgitation. 5. Severe pulmonary hypertension, estimated pulmonary arterial systolic pressure is 130 mmHg. 6. Biatrial dilation. 7. Saline contrast is negative for intracardiac shunt. (4) Cirrhosis of liver with ascites: Qualifiers: Hepatic cirrhosis type: unspecified hepatic cirrhosis Qualified Code(s): K74.60 - Unspecified cirrhosis of liver; R18.8 - Other ascites Code(s): K74.60 - Unspecified cirrhosis of liver; R18.8 - Other ascites Status: Acute Assessment and Plan: ammonia level is normal. Vitamin K for coagulopathy. Diagnostic and therapeutic paracentesis for ascites done (5) Acute renal failure (ARF): Qualifiers: Acute renal failure type: unspecified Qualified Code(s): N17.9 - Acute kidney failure, unspecified Code(s): N17.9 - Acute kidney failure, unspecified Status: Acute Assessment and Plan: Multifactorial - is most likely prerenal from intravascular volume depletion from diuretics and cirrhosis, could have component of hepatorenal or cardiorenal. Cautious rehydration as patient is overall volume overloaded. Levophed and dobutamine to maintain blood pressure and perfusion creatinine is improved to 1.6 today. Patient has good urine output. Replace low potassium and magnesium check phosphorus level monitor electrolytes, intake and output, creatinine continue intravenous albumin = (6) Acute hyponatremia: Code(s): E87.1 - Hypo-osmolality and hyponatremia Stat
[2019-05-31 07:53] LABS: Hematocrit 36.8 % (37.0-47.0); Hemoglobin 10.8 g/dL (12.0-15.0); Mean Corpuscular HGB Conc 29.3 g/dl (32-36); Mean Corpuscular Hemoglobin 26.6 pg (26-34); Mean Corpuscular Volume 90.6 fl (80-100); Mean Platelet Volume 8.2 fl (7.4-10.4); Platelet Count Result 253 k/mm3 (150-375); Red Blood Count 4.06 M/mm3 (4.2-5.4); Red Cell Distribution Width 17.8 % (11.5-14.5); White Blood Count 4.3 K/mm3 (4.5-10.0)
[2019-05-31 08:04] LABS: INR 1.4; Prothrombin Time 16.6 Seconds (11.1-14.7)
[2019-05-31 08:15] LABS: Alanine Aminotransferase 33 U/L (4-35); Albumin Level 3.2 g/dL (3.5-5.1); Alkaline Phosphatase 59 U/L (38-126); Aspartate Amino Transferase 27 U/L (14-36); Bilirubin,Total 0.2 mg/dL (0.2-1.3); Blood Urea Nitrogen 54 mg/dL (7-17); Calcium 7.4 mg/dL (8.4-10.2); Carbon Dioxide 29 mmol/L (22-30); Chloride 91 mmol/L (98-107); Estimated Glomerular Filt Rate 39; Glucose 143 mg/dL (65-105); Magnesium 1.8 mg/dL (1.6-2.3); Potassium 2.7 mmol/L (3.4-5.0); Sodium 131 mmol/L (137-145)
[2019-05-31] MEDS: ASPIRIN 81 MG ENTERIC TABLET PO (08:22)
[2019-05-31] MEDS: DIVALPROEX SODIUM 250 MG TABEC PO ×2 (08:22→20:03)
[2019-05-31] MEDS: MEMANTINE 5 MG TABLET PO (08:23)
[2019-05-31] MEDS: LACTULOSE 20 GM/30 ML UDC 30 GM PO ×3 (08:23→16:42)
[2019-05-31] MEDS: HEPARIN SODIUM 5,000 UNITS/ML VIAL 5000 UNITS SUB-Q ×2 (08:23→20:03)
[2019-05-31] MEDS: SODIUM BICARBONATE TAB 650 MG TABLET 1300 MG PO ×3 (08:23→16:42)
[2019-05-31 08:31] LABS: Phosphorus 4.6 mg/dL (2.5-4.5)
[2019-05-31] MEDS: POTASSIUM CHLORIDE 20 MEQ TABLET 40 MEQ PO (08:41)
[2019-05-31] MEDS: MAGNESIUM SULF 2 GM/WATER 50ML 2 GM/50 ML BAG IVPB (10:12)
[2019-05-31] MEDS: DOBUTamine 250 MG/D5W 250 ML 250 MG/250 ML BAG 25.1 MG IV CONT ×2 (12:22→21:59)
[2019-05-31 13:18] LABS: Glucose Point of Care 173 (65-105)
[2019-05-31] MEDS: ONDANSETRON INJ 4 MG/2 ML VIAL IV PUSH (14:37)
[2019-05-31 16:45] LABS: Blood Urea Nitrogen 48 mg/dL (7-17); Calcium 7.5 mg/dL (8.4-10.2); Carbon Dioxide 30 mmol/L (22-30); Chloride 91 mmol/L (98-107); Estimated Glomerular Filt Rate 45; Glucose 155 mg/dL (65-105); Magnesium 2.3 mg/dL (1.6-2.3); Potassium 3.4 mmol/L (3.4-5.0); Sodium 133 mmol/L (137-145)
[2019-05-31 17:44] LABS: Glucose Point of Care 152 (65-105)
[2019-05-31] MEDS: LACTATED RINGERS 1,000 ML 50 ML IV CONT (19:36)
[2019-05-31] MEDS: DONEPEZIL HCL 5 MG TABLET PO (20:03)
[2019-05-31 23:12] LABS: Glucose Point of Care 151 (65-105)
[2019-06-01] VITALS (21 sets, daily range): BP systolic 114–148; BP diastolic 59–95; PULSE 59–97; RESP 10–24; TEMP 36.4–37.1; O2SAT 91–98
[2019-06-01] MEDS: ALBUTEROL SULFATE NEB 2.5 MG/0.5 ML INH 5 MG INHALATION ×3 (01:51→15:57)
[2019-06-01] MEDS: IPRATROPIUM BR 0.02% INH SOLN 0.5 MG/2.5 ML VIAL INHALATION ×3 (01:51→15:57)
[2019-06-01 04:21] LABS: Hematocrit 39.3 % (37.0-47.0); Hemoglobin 11.1 g/dL (12.0-15.0); Mean Corpuscular HGB Conc 28.2 g/dl (32-36); Mean Corpuscular Hemoglobin 26.5 pg (26-34); Mean Corpuscular Volume 93.8 fl (80-100); Mean Platelet Volume 9.5 fl (7.4-10.4); Platelet Count Result 266 k/mm3 (150-375); Red Blood Count 4.19 M/mm3 (4.2-5.4); Red Cell Distribution Width 17.9 % (11.5-14.5); White Blood Count 5.1 K/mm3 (4.5-10.0)
[2019-06-01 04:34] LABS: Alanine Aminotransferase 26 U/L (4-35); Albumin Level 3.5 g/dL (3.5-5.1); Alkaline Phosphatase 67 U/L (38-126); Aspartate Amino Transferase 23 U/L (14-36); Bilirubin,Total 0.3 mg/dL (0.2-1.3); Blood Urea Nitrogen 42 mg/dL (7-17); Calcium 7.6 mg/dL (8.4-10.2); Carbon Dioxide 31 mmol/L (22-30); Chloride 94 mmol/L (98-107); Estimated Glomerular Filt Rate 54; Glucose 166 mg/dL (65-105); Magnesium 2.1 mg/dL (1.6-2.3); Phosphorus 3.5 mg/dL (2.5-4.5); Sodium 134 mmol/L (137-145)
[2019-06-01] MEDS: ALBUMIN HUMAN 25% 25 GM/100 ML 100 ML IVPB (05:12)
--- NOTE | 2019-06-01 08:45 | WPDINTPN ---
Progress Note: A&P Assessment and Plan (1) Shock: Code(s): R57.9 - Shock, unspecified Status: Acute Assessment and Plan: Multifactorial - cardiogenic, dehydration versus septic. patient has severe right heart failure suggesting low cardiac output, hypothermia and renal failure. although patient workup and history does not suggest infection, it cannot be ruled out as patient is a very poor historian. Patient is not tender on her abdomen. Patient was started on empiric Rocephin for SBP After giving IV fluids. - Culture sent and pending. negative to date - continue Rocephin - see below - ultrasound-guided paracentesis- diagnostic and therapeutic - done yesterday 1300 mL fluid removed - Levophed weaned off. will wean off dobutamine at this time - DC IV fluids (2) SBP (spontaneous bacterial peritonitis): Code(s): K65.2 - Spontaneous bacterial peritonitis Status: Acute Assessment and Plan: patient was started on empiric Rocephin at the time of admission for suspected SBP. peritoneal fluid sent to lab yesterday is not suggestive peritonitis as neutrophil count is low. Patient also clinically does not suggest spontaneous bacterial peritonitis as she is not tender or afebrile. gram stain and culture also negative till now. I am inclined towards discontinuing Rocephin at this time. I would discuss with Internal Medicine physician before discontinuing (3) Right heart failure: Qualifiers: Heart failure chronicity: acute on chronic Qualified Code(s): I50.813 - Acute on chronic right heart failure Code(s): I50.810 - Right heart failure, unspecified Status: Acute Assessment and Plan: Patient has severe pulmonary hypertension and biventricular heart failure. Patient is overall volume overloaded but was intravascularly depleted due to diuresis. Patient was started on IV fluids and dobutamine infusion which has led to improvement in renal function and blood pressure. I feel wean off dobutamine today and discontinue IV fluids. Patient has a good p.o. intake. Monitor ECHO 04/03/2019 1. Left ventricular systolic function is hyperdynamic, estimated at >70%. 2. There is moderate concentric increased left ventricular wall thickness. 3. The septum has a D sign indicating RV pressure overload. 4. There is mild to moderate tricuspid valve regurgitation. 5. Severe pulmonary hypertension, estimated pulmonary arterial systolic pressure is 130 mmHg. 6. Biatrial dilation. 7. Saline contrast is negative for intracardiac shunt. (4) Cirrhosis of liver with ascites: Qualifiers: Hepatic cirrhosis type: unspecified hepatic cirrhosis Qualified Code(s): K74.60 - Unspecified cirrhosis of liver; R18.8 - Other ascites Code(s): K74.60 - Unspecified cirrhosis of liver; R18.8 - Other ascites Status: Acute Assessment and Plan: ammonia level is normal. Vitamin K for coagulopathy. Diagnostic and therapeutic paracentesis for ascites done (5) Acute renal failure (ARF): Qualifiers: Acute renal failure type: unspecified Qualified Code(s): N17.9 - Acute kidney failure, unspecified Code(s): N17.9 - Acute kidney failure, unspecified Status: Acute Assessment and Plan: Multifactorial - is most likely prerenal from intravascular volume depletion from diuretics and cirrhosis, could have component of hepatorenal or cardiorenal. improved with Cautious rehydration and dobutamine to maintain blood pressure and perfusion creatinine is improved to 1.2 today. Patient has good urine output. Replace low potassium check phosphorus level monitor electrolytes, intake and output, creatinine patient did receive IV albumin (6) Acute hyponatremia: Code(s): E87.1 - Hypo-osmolality and hyponatremia Status: Acute Assessment and Plan: patient has chronic hyponatremia which is slight
[2019-06-01] MEDS: LACTULOSE 20 GM/30 ML UDC 30 GM PO ×2 (09:13→17:35)
[2019-06-01] MEDS: HEPARIN SODIUM 5,000 UNITS/ML VIAL 5000 UNITS SUB-Q ×2 (09:13→20:55)
[2019-06-01] MEDS: MEMANTINE 5 MG TABLET PO (09:13)
[2019-06-01] MEDS: DIVALPROEX SODIUM 250 MG TABEC PO ×2 (09:14→20:55)
[2019-06-01] MEDS: ASPIRIN 81 MG ENTERIC TABLET PO (09:14)
[2019-06-01] MEDS: POTASSIUM CHLORIDE 20 MEQ PACKET (FOR LIQUID) 40 MEQ PO (09:18)
[2019-06-01 09:27] LABS: Glucose Point of Care 123 (65-105)
[2019-06-01 14:36] LABS: Glucose Point of Care 178 (65-105)
--- NOTE | 2019-06-01 17:44 | PM.IMPN ---
Progress Note: A&P Assessment and Plan (1) Shock: Code(s): R57.9 - Shock, unspecified Status: Acute Assessment and Plan: I am suspicious for possible SBP and septic shock. Patient has responded well to the Levophed and dobutamine Patient does have severe pulmonary hypertension and right-sided heart failure. Pt is weaned off dobtuamine. Medically stable for the floor (2) Cirrhosis of liver with ascites: Qualifiers: Hepatic cirrhosis type: unspecified hepatic cirrhosis Qualified Code(s): K74.60 - Unspecified cirrhosis of liver; R18.8 - Other ascites Code(s): K74.60 - Unspecified cirrhosis of liver; R18.8 - Other ascites Status: Acute Assessment and Plan: The patient's meld score in March was normal. (3) Acute renal failure (ARF): Qualifiers: Acute renal failure type: unspecified Qualified Code(s): N17.9 - Acute kidney failure, unspecified Code(s): N17.9 - Acute kidney failure, unspecified Status: Acute Assessment and Plan: Likely due to septic shock (4) Acute hyponatremia: Code(s): E87.1 - Hypo-osmolality and hyponatremia Status: Acute Assessment and Plan: Associated with cirrhosis with worsening of meld score. Subjective Date/time seen: 06/01/19 17:44 Exam Narrative: Exam Narrative: General: Chronically ill-appearing, obese, appears older than stated Neck: No gross lymphadenopathy or thyromegaly Respiratory: Clear to ausculation Cardiovascular: Regular rate, 1+ pedal and radial pulses bilaterally, murmur present, Gastrointestinal: Distended, dullness to percussion, positive bowel sounds Skin: No pallor, cold to touch Objective Data Vital Signs Vital Signs: Vital Signs - 24 hr 05/31/19 18:00 05/31/19 19:39 05/31/19 20:00 Temperature 36.8 C Pulse Rate 69 74 72 Respiratory Rate 16 15 18 Blood Pressure 132/87 144/81 H Pulse Oximetry 96 95 94 05/31/19 20:06 05/31/19 20:09 05/31/19 20:12 Temperature Pulse Rate 73 68 Respiratory Rate 18 20 Blood Pressure Pulse Oximetry 94 05/31/19 21:57 05/31/19 22:00 05/31/19 23:56 Temperature Pulse Rate 71 72 69 Respiratory Rate 19 18 Blood Pressure 151/76 H Pulse Oximetry 92 93 06/01/19 00:00 06/01/19 01:52 06/01/19 01:57 Temperature 36.7 C Pulse Rate 65 62 60 Respiratory Rate 21 H 18 18 Blood Pressure 148/89 H Pulse Oximetry 94 06/01/19 01:59 06/01/19 02:00 06/01/19 03:14 Temperature Pulse Rate 63 65 75 Respiratory Rate 14 18 Blood Pressure 140/76 Pulse Oximetry 97 91 06/01/19 04:00 06/01/19 06:00 06/01/19 08:00 Temperature 36.4 C L 36.5 C 36.4 C Pulse Rate 63 66 62 Respiratory Rate 11 L 12 10 L Blood Pressure 141/90 H 147/80 H 136/84 Pulse Oximetry 95 98 97 06/01/19 09:22 06/01/19 09:34 06/01/19 10:00 Temperature 36.5 C Pulse Rate 67 59 L 72 Respiratory Rate 13 15 17 Blood Pressure 131/90 Pulse Oximetry 94 93 06/01/19 12:00 06/01/19 14:00 06/01/19 15:58 Temperature 36.8 C 36.9 C Pulse Rate 63 70 80 Respiratory Rate 12 13 24 H Blood Pressure 114/68 136/84 Pulse Oximetry 96 96 06/01/19 16:00 06/01/19 16:04 Temperature 36.9 C Pulse Rate 83 77 Respiratory Rate 20 22 H Blood Pressure 125/74 Pulse Oximetry 94 Intake/Output Intake/Output: Intake & Output 05/29/19 05/30/19 05/31/19 06/01/19 23:59 23:59 23:59 23:59 Intake Total 1999 3959 3580 1925 Output Total 2300 2550 1700 Balance 1999 1653 1030 225 Meds/Results Medications: Active Medications Generic Name Dose Route Start Last Admin Trade Name Freq PRN Reason Stop Dose Admin Albuterol 5 mg 05/29/19 20:00 06/01/19 15:57 Albuterol Sulf Neb 2.5mg/0.5ml INHALATION 5 mg Q6HRT RHINA Administration Aspirin 81 mg 05/30/19 09:00 06/01/19 09:14 Aspirin Ec PO 81 mg DAILY RHINA Administration Dextrose 12.5 gm 05/30/19 08:07 Dextrose 50% Syringe IV PU
[2019-06-01] MEDS: DONEPEZIL HCL 5 MG TABLET PO (20:56)
[2019-06-01 21:07] LABS: Glucose Point of Care 168 (65-105)
[2019-06-01 21:21] LABS: Albumin Peritoneal Fluid 1.4 g/dL
[2019-06-02] VITALS (12 sets, daily range): BP systolic 100–124; BP diastolic 65–81; PULSE 65–74; RESP 11–22; TEMP 36.8–37; O2SAT 93–97
[2019-06-02 00:10] LABS: Glucose Point of Care 126 (65-105)
[2019-06-02 04:50] LABS: Hematocrit 44.1 % (37.0-47.0); Hemoglobin 12.2 g/dL (12.0-15.0); Mean Corpuscular HGB Conc 27.7 g/dl (32-36); Mean Corpuscular Hemoglobin 26.5 pg (26-34); Mean Corpuscular Volume 95.7 fl (80-100); Mean Platelet Volume 9.1 fl (7.4-10.4); Platelet Count Result 291 k/mm3 (150-375); Red Blood Count 4.61 M/mm3 (4.2-5.4); Red Cell Distribution Width 18.2 % (11.5-14.5); White Blood Count 5.4 K/mm3 (4.5-10.0)
[2019-06-02 05:06] LABS: Alanine Aminotransferase 28 U/L (4-35); Alkaline Phosphatase 51 U/L (38-126); Aspartate Amino Transferase 33 U/L (14-36); Bilirubin,Total 0.2 mg/dL (0.2-1.3); Blood Urea Nitrogen 41 mg/dL (7-17); Calcium 7.2 mg/dL (8.4-10.2); Carbon Dioxide 28 mmol/L (22-30); Chloride 102 mmol/L (98-107); Estimated Glomerular Filt Rate > 60; Glucose 114 mg/dL (65-105); Magnesium 1.9 mg/dL (1.6-2.3); Phosphorus 3.6 mg/dL (2.5-4.5); Potassium 3.5 mmol/L (3.4-5.0); Sodium 134 mmol/L (137-145)
[2019-06-02] MEDS: ALBUTEROL SULFATE NEB 2.5 MG/0.5 ML INH 5 MG INHALATION ×2 (08:22→14:05)
[2019-06-02] MEDS: IPRATROPIUM BR 0.02% INH SOLN 0.5 MG/2.5 ML VIAL INHALATION ×2 (08:23→14:05)
[2019-06-02] MEDS: LACTULOSE 20 GM/30 ML UDC 30 GM PO ×2 (09:16→17:14)
[2019-06-02] MEDS: HEPARIN SODIUM 5,000 UNITS/ML VIAL 5000 UNITS SUB-Q ×2 (09:16→20:42)
[2019-06-02] MEDS: MEMANTINE 5 MG TABLET PO (09:17)
[2019-06-02] MEDS: DIVALPROEX SODIUM 250 MG TABEC PO ×2 (09:17→20:41)
[2019-06-02] MEDS: ASPIRIN 81 MG ENTERIC TABLET PO (09:17)
[2019-06-02 12:51] LABS: Glucose Point of Care 163 (65-105)
--- NOTE | 2019-06-02 15:09 | PM.IMPN ---
Progress Note: A&P Assessment and Plan (1) Shock: Code(s): R57.9 - Shock, unspecified Status: Acute Assessment and Plan: secondary to septic shock. Patient has responded well to the Levophed and dobutamine Patient does have severe pulmonary hypertension and right-sided heart failure. Pt is weaned off dobtuamine. Medically stable for the floor (2) Cirrhosis of liver with ascites: Qualifiers: Hepatic cirrhosis type: unspecified hepatic cirrhosis Qualified Code(s): K74.60 - Unspecified cirrhosis of liver; R18.8 - Other ascites Code(s): K74.60 - Unspecified cirrhosis of liver; R18.8 - Other ascites Status: Acute Assessment and Plan: The patient's meld score in March was normal. (3) Acute renal failure (ARF): Qualifiers: Acute renal failure type: unspecified Qualified Code(s): N17.9 - Acute kidney failure, unspecified Code(s): N17.9 - Acute kidney failure, unspecified Status: Acute Assessment and Plan: Likely due to septic shock (4) Acute hyponatremia: Code(s): E87.1 - Hypo-osmolality and hyponatremia Status: Acute Assessment and Plan: Associated with cirrhosis with worsening of meld score. Subjective Date/time seen: 06/02/19 15:09 Exam Narrative: Exam Narrative: General: Chronically ill-appearing, obese, appears older than stated Neck: normal Respiratory: Clear to ausculation Cardiovascular: Regular rate, 1+ pedal and radial pulses bilaterally, murmur present, Gastrointestinal: soft non tender Skin: No pallor, cold to touch ext: No edema weakness of legs Objective Data Vital Signs Vital Signs: Vital Signs - 24 hr 06/01/19 15:58 06/01/19 16:00 06/01/19 16:04 Temperature 36.9 C Pulse Rate 80 83 77 Respiratory Rate 24 H 20 22 H Blood Pressure 125/74 Pulse Oximetry 94 06/01/19 18:00 06/01/19 20:00 06/01/19 20:38 Temperature 37.0 C 37.1 C Pulse Rate 77 66 68 Respiratory Rate 18 16 16 Blood Pressure 141/59 H 124/89 Pulse Oximetry 92 97 96 06/01/19 22:00 06/02/19 00:00 06/02/19 02:00 Temperature 36.9 C 37.0 C 36.9 C Pulse Rate 69 69 73 Respiratory Rate 15 14 11 L Blood Pressure 139/95 H 124/81 113/65 Pulse Oximetry 97 96 93 06/02/19 03:44 06/02/19 04:00 06/02/19 06:00 Temperature 36.9 C 36.8 C Pulse Rate 73 70 Respiratory Rate 11 L 14 Blood Pressure 100/75 119/79 Pulse Oximetry 93 95 97 06/02/19 08:00 06/02/19 08:24 06/02/19 08:25 Temperature Pulse Rate 71 66 Respiratory Rate 13 18 Blood Pressure Pulse Oximetry 96 96 06/02/19 08:32 06/02/19 14:06 06/02/19 14:13 Temperature Pulse Rate 69 74 69 Respiratory Rate 14 15 22 H Blood Pressure Pulse Oximetry Intake/Output Intake/Output: Intake & Output 05/30/19 05/31/19 06/01/19 06/02/19 23:59 23:59 23:59 23:59 Intake Total 3959 3680 2365 240 Output Total 2300 2550 1700 300 Balance 1659 1130 665 -60 Meds/Results Medications: Active Medications Generic Name Dose Route Start Last Admin Trade Name Freq PRN Reason Stop Dose Admin Albuterol 5 mg 05/29/19 20:00 06/02/19 14:05 Albuterol Sulf Neb 2.5mg/0.5ml INHALATION 5 mg Q6HRT RHINA Administration Aspirin 81 mg 05/30/19 09:00 06/02/19 09:17 Aspirin Ec PO 81 mg DAILY RHINA Administration Divalproex Sodium 250 mg 05/30/19 01:25 06/02/19 09:17 Depakote Ec Tab PO 250 mg Q12HR RHINA Administration Donepezil HCl 5 mg 05/30/19 01:30 06/01/19 20:56 Aricept PO 5 mg HS RHINA Administration Heparin Sodium (Porcine) 5,000 units 05/30/19 09:00 06/02/19 09:16 Heparin Sodium SUB-Q 5,000 units Q12HR RHINA Administration Ceftriaxone Sodium 2 gm in 100 mls @ 200 mls/hr 05/30/19 00:25 06/01/19 21:25 Rocephin 2 Gm/D5w 100 Ml IVPB Infused HS RHINA Infusion Ipratropium Philpot 0.5 mg 05/29/19 20:00 06/02/19 14:05 Atrovent Neb INHALATION 0.5 mg Q6HRT
--- NOTE | 2019-06-02 16:46 | PC.NURSE ---
This patient, Sendy Malin, was received from ICU [ ] on 06/02/19 at 1646. Personal belongings list checked and signed. Patient/family oriented to unit policies and routines
[2019-06-02 18:05] LABS: Glucose Point of Care 148 (65-105)
[2019-06-02 20:28] LABS: Glucose Point of Care 153 (65-105)
[2019-06-02] MEDS: DONEPEZIL HCL 5 MG TABLET PO (20:42)
[2019-06-03] VITALS (22 sets, daily range): BP systolic 100–114; BP diastolic 45–74; PULSE 76–97; RESP 16–24; TEMP 35.6–36.9; O2SAT 43–100
--- NOTE | 2019-06-03 01:45 | PC.NURSE ---
At 0115, SpO2 45% poor response from patient, RR 22 lung sounds diminished. Placed on 6L. 0130 SpO2 95% on 5L/NC, poor response continues, ABG's to be obtained, Dr Zuniga present.
[2019-06-03 02:24] LABS: Alveolar/Arterial O2 Gradient 181.7 mmHg; Base Excess ABG -1.5 mEq/l (+/-2.0); Fractional Inspired Oxygen 40 %; HCO3 ABG 23.2 mEq/l (22.0-26.0); Oxygen Content ABG 17.1 %vol (16.0-22.0); Oxyhemoglobin 85.7 % THb (90.0-100.0); PCO2 ABG 39.4 mmHg (35.0-45.0); PO2 ABG 58.2 mmHg (80.0-100.0); PO2 FiO2 Ratio Arterial Blood 1.46 %; Total Hemoglobin 14.2 g/dL (12.0-18.0); pH ABG 7.388 (7.350-7.450)
[2019-06-03] MEDS: IPRATROPIUM BR 0.02% INH SOLN 0.5 MG/2.5 ML VIAL INHALATION ×4 (02:31→20:50)
[2019-06-03] MEDS: ALBUTEROL SULFATE NEB 2.5 MG/0.5 ML INH 5 MG INHALATION ×4 (02:32→20:50)
--- NOTE | 2019-06-03 02:59 | PC.NURSE ---
Reportcalled to IMU. Patient transferred to room 206-1 by bed per doctors order with all possession. All questions from IMU staff answered.
--- NOTE | 2019-06-03 03:02 | PM.EVENT ---
Event Note Event Note Event Note: Called to bedside to see this 68 year old female who is being treated for septic shock who tonight became obtunded and poorly responsive. The patient was found to not be wearing her oxygen and was saturating in the low 80s. The patient was placed on 5L of oxygen via NC and started to become more responsive. ABG was obtained which demonstrated hypoxemic respiratory failure. CXR was obtained which demonstrated worsening pulmonary edema. The patient will be initiated on Airvo high flow oxygen and transferred to IMU for closer monitoring. I will also administer Lasix IV now. Continue to monitor closely. Check another ABG in 2 hours. Wean off of oxygen as tolerated. NPO for the rest of the night. Close monitoring as the patient may need to be intubated and placed on mechanical ventilation.
[2019-06-03 03:03] LABS: Device NASAL CANNULA; Site Drawn RIGHT FEMORAL
[2019-06-03] MEDS: FUROSEMIDE INJ 100 MG/10 ML VIAL 80 MG IV PUSH (03:21)
--- NOTE | 2019-06-03 03:37 | PC.NURSE ---
This patient, Sendy Malin, was received from [[id number]/01 ] on 06/03/19 at 0250. Personal belongings list checked and signed. Family to be notified by Palmira Tatum RN on edsurg.
--- NOTE | 2019-06-03 04:03 | PCRCNOTE ---
WHILE ASSESSING PT VITAL SIGNS PRIOR TO 0200 BREATHING TREATMENT, PT FOUND TO HAVE SPO2 43% ON RA. REPLACED NC AND INCREASED O2 TO 6LPM AND CALLED FOR ASSISTANCE. SPO2 INCREASED TO 97% ON 6LPM; DECREASED O2 TO 5LPM FOR SPO2 92%. CALLED DR ORNELAS TO EXPLAIN SITUATION. HE ORDERED ABG TO BE DRAWN. HE AND I ATTEMPTED ABG X 3 WHEN HE FINALLY GUMARO FROM RIGHT FEMORAL. PT WAS THEN TRANSFERRED TO IMU AND PLACED ON HIGH FLOW OXYGEN THERAPY.
[2019-06-03 04:56] LABS: Hematocrit 49.2 % (37.0-47.0); Hemoglobin 14.1 g/dL (12.0-15.0); Mean Corpuscular HGB Conc 28.7 g/dl (32-36); Mean Corpuscular Hemoglobin 26.3 pg (26-34); Mean Corpuscular Volume 91.8 fl (80-100); Mean Platelet Volume 9.2 fl (7.4-10.4); Platelet Count Result 284 k/mm3 (150-375); Red Blood Count 5.36 M/mm3 (4.2-5.4); Red Cell Distribution Width 18.7 % (11.5-14.5); White Blood Count 7.1 K/mm3 (4.5-10.0)
[2019-06-03 05:01] LABS: Alveolar/Arterial O2 Gradient 476.8 mmHg; Base Excess ABG -0.7 mEq/l (+/-2.0); Fractional Inspired Oxygen 85 %; HCO3 ABG 24.3 mEq/l (22.0-26.0); Oxygen Content ABG 18.4 %vol (16.0-22.0); Oxygen Saturation ABG 96.4 % (95.0-100.0); PCO2 ABG 41.7 mmHg (35.0-45.0); PO2 FiO2 Ratio Arterial Blood 1.01 %; Total Hemoglobin 13.9 g/dL (12.0-18.0); pH ABG 7.384 (7.350-7.450)
[2019-06-03 05:02] LABS: Amylase Peritoneal Fluid 19 U/L
[2019-06-03 05:04] LABS: Site Drawn RIGHT BRACHIAL
[2019-06-03 05:05] LABS: Device HIGH FLOW THERAPY
[2019-06-03 05:35] LABS: Alanine Aminotransferase 416 U/L (4-35); Albumin Level 3.6 g/dL (3.5-5.1); Alkaline Phosphatase 113 U/L (38-126); Bilirubin,Total 0.4 mg/dL (0.2-1.3); Blood Urea Nitrogen 57 mg/dL (7-17); Calcium 8.4 mg/dL (8.4-10.2); Carbon Dioxide 26 mmol/L (22-30); Chloride 98 mmol/L (98-107); Estimated Glomerular Filt Rate 34; Glucose 133 mg/dL (65-105); Magnesium 2.3 mg/dL (1.6-2.3); Phosphorus 5.1 mg/dL (2.5-4.5); Potassium 4.6 mmol/L (3.4-5.0); Sodium 134 mmol/L (137-145)
[2019-06-03 05:50] LABS: Aspartate Amino Transferase 1018 U/L (14-36)
[2019-06-03] MEDS: HEPARIN SODIUM 5,000 UNITS/ML VIAL 5000 UNITS SUB-Q ×2 (09:48→20:53)
[2019-06-03] MEDS: MEMANTINE 5 MG TABLET PO (09:50)
[2019-06-03] MEDS: LACTULOSE 20 GM/30 ML UDC 30 GM PO ×2 (09:50→18:05)
[2019-06-03] MEDS: DIVALPROEX SODIUM 250 MG TABEC PO (09:50)
[2019-06-03] MEDS: ASPIRIN 81 MG ENTERIC TABLET PO (09:50)
--- NOTE | 2019-06-03 10:56 | WPDCN ---
Assessment and Plan Assessment and plan (1) Acute on chronic diastolic CHF (congestive heart failure): Code(s): I50.33 - Acute on chronic diastolic (congestive) heart failure Status: Acute Assessment and Plan: Patient now with hypoxia, requiring high-flow oxygen. Initially she was admitted with shock and received a lot of IV fluids, albumin cetera. She does have edema and her chest x-ray suggests CHF. I think we should continue attempting diuresis, will change to Bumex 2 mg IV push b.i.d.. Follow renal function. (2) Shock: Code(s): R57.9 - Shock, unspecified Status: Acute Assessment and Plan: BP better, off Levophed and dobutamine, still on antibiotics, infectious source unknown, shock resolved (3) Acute renal failure (ARF): Qualifiers: Acute renal failure type: unspecified Qualified Code(s): N17.9 - Acute kidney failure, unspecified Code(s): N17.9 - Acute kidney failure, unspecified Status: Acute Assessment and Plan: Creatinine is still bouncing around but improving. Daily BMP (4) Pulmonary hypertension: Code(s): I27.20 - Pulmonary hypertension, unspecified Status: Acute Assessment and Plan: Has severe pulmonary hypertension with chronic right heart failure. If we diurese too much and her preload is low, she will become hypotensive. (5) Cirrhosis of liver with ascites: Qualifiers: Hepatic cirrhosis type: unspecified hepatic cirrhosis Qualified Code(s): K74.60 - Unspecified cirrhosis of liver; R18.8 - Other ascites Code(s): K74.60 - Unspecified cirrhosis of liver; R18.8 - Other ascites Status: Acute Assessment and Plan: History of cirrhosis, status post paracentesis this admission Has a coagulopathy with INR 1.3-1.5. (6) Encephalopathy: Code(s): G93.40 - Encephalopathy, unspecified Status: Acute Assessment and Plan: Has encephalopathy superimposed upon chronic dementia and schizophrenia. HPI Data of Consult Date/Time: 06/03/19 10:56 Requesting Physician: Jody Sutton DO Primary Care Provider: UNKNOWN,DOCTOR Consult Narrative Narrative: Date of service: 06/03/2019 Sendy Malin is a 68 year old female [facility] with history of dementia and possible schizophrenia whom I was asked to see at the request of Dr. Camp for my advice and opinion regarding her CHF and volume status in consultation. The patient has had several admissions to [facility] for CHF and hepatic fibrosis recently. She was admitted here on May 28 with cardiogenic and septic shock with severe right heart failure, hypothermia, acute renal failure. She had paracentesis for hours hepatic cirrhosis and ascites. She received IV fluids and albumin. She improved has been transferred to IMU. She had problems with hypoxia last night requiring high-flow oxygen and was given IV Lasix of 80 mg x 1. Has not had much of a response, however. There is concern that, since the patient had acute renal failure that she should be diuresed but on the other hand she is hypoxic and check her chest x-ray still shows a lot of pulmonary infiltrates. History of Alzheimer's dementia, diabetes, paranoid schizophrenia, COPD, smoking, stroke, chronic hypoxemic respiratory failure, HTN, microscopic hematuria. Patient cannot provide any history. The history was obtained from [facility] notes via epic, [facility] ER notes, [facility] critical care notes and hospitalist notes, other hospital EMR data. 05/2019 echo ([facility]): Normal LV systolic function, EF 64% marked right atrial and right ventricular enlargement, mild RV dysfunction, mild LVH, diastolic dysfunction small pericardial effusion, moderate pulmonary hyp
[2019-06-03] MEDS: BUMETANIDE INJ 2.5 MG/10 ML VIAL 2 MG IVPB ×2 (12:01→18:04)
--- NOTE | 2019-06-03 13:29 | PM.IMPN ---
Progress Note: A&P Assessment and Plan (1) Shock: Code(s): R57.9 - Shock, unspecified Status: Acute Assessment and Plan: secondary to septic shock. Patient has responded well to the Levophed and dobutamine Patient does have severe pulmonary hypertension and right-sided heart failure. Pt is weaned off dobutamine. Medically stable for the floor. Pt unfortunately appears lethargic today and sob Started on high flow oxygen, Cxr ordered pulmonary edema.Pt started on iv bumex. ammonia level ordered, cadiology consulted (2) Cirrhosis of liver with ascites: Qualifiers: Hepatic cirrhosis type: unspecified hepatic cirrhosis Qualified Code(s): K74.60 - Unspecified cirrhosis of liver; R18.8 - Other ascites Code(s): K74.60 - Unspecified cirrhosis of liver; R18.8 - Other ascites Status: Acute Assessment and Plan: The patient's meld score in March was normal. (3) Acute renal failure (ARF): Qualifiers: Acute renal failure type: unspecified Qualified Code(s): N17.9 - Acute kidney failure, unspecified Code(s): N17.9 - Acute kidney failure, unspecified Status: Acute Assessment and Plan: Likely due to septic shock, creat is 1.8. will continue D5W at t is not eating anything (4) Acute hyponatremia: Code(s): E87.1 - Hypo-osmolality and hyponatremia Status: Acute Assessment and Plan: Associated with cirrhosis with worsening of meld score. Subjective Date/time seen: 06/03/19 13:29 Interval history: 68 year old female with a past medical history of cirrhosis, severe pulmonary hypertension and recent hospitalization for respiratory failure requiring intubation. Pt was weaned off dobatmine drip sucessfully. Patient has severe pulmonary hypertension and biventricular heart failure. Was treated for septic shock in ICU also had paracentesis for ascites. Pt was transfered to medical floor yesterday. Today SOB, lethargic sugars are low. Pt started on lasix switched to bumex by Dr Mckeon. Ammonia level ordered Review of Systems Review of Systems: ROS unobtainable: unobtainable due to mental condition Constitutional: Comments: lethargic drowsy sob Exam Narrative: Exam Narrative: General: Arousable to verbal commands, tired, lethargic, chronically ill on high flow oxygen Neck: normal Respiratory: BL wheezes and crackles Cardiovascular: Regular rate, 1+ pedal and radial pulses bilaterally, murmur present, Gastrointestinal: soft non tender Skin: No pallor, cold to touch ext: No edema weakness of legs Objective Data Vital Signs Vital Signs: Vital Signs - 24 hr 06/02/19 14:06 06/02/19 14:13 06/02/19 16:40 Temperature Pulse Rate 74 69 70 Respiratory Rate 15 22 H 22 H Blood Pressure Pulse Oximetry 96 06/03/19 01:21 06/03/19 02:31 06/03/19 02:40 Temperature Pulse Rate 97 94 Respiratory Rate 24 H 24 H Blood Pressure Pulse Oximetry 43 L 06/03/19 02:50 06/03/19 04:00 06/03/19 06:00 Temperature 36.2 C L 36.5 C Pulse Rate 97 94 85 Respiratory Rate 24 H 24 H Blood Pressure 112/70 104/59 L Pulse Oximetry 97 96 06/03/19 08:00 06/03/19 08:40 06/03/19 08:50 Temperature 36.6 C Pulse Rate 81 81 81 Respiratory Rate 24 H 22 H 20 Blood Pressure 114/74 Pulse Oximetry 98 99 06/03/19 10:00 06/03/19 12:00 Temperature Pulse Rate 81 81 Respiratory Rate 20 Blood Pressure Pulse Oximetry 99 Intake/Output Intake/Output: Intake & Output 05/31/19 06/01/19 06/02/19 06/03/19 23:59 23:59 23:59 23:59 Intake Total 3680 2365 240 Output Total 2550 1700 750 225 Balance 1130 665 -510 -225 Meds/Results Medications: Active Medications Generic Name Dose Route Start Last Admin Trade Name Freq PRN Reason Stop Dose Admin Albuterol 5 mg 05/29/19 20:00 06/03/19 08:35 Albuterol Sulf Neb 2.5mg/0.5ml INHALATION 5 mg Q6HRT RHINA Administration As
[2019-06-03 13:45] LABS: Ammonia 53 umol/L (9-30)
[2019-06-03 13:51] LABS: Glucose Point of Care 122 (65-105)
[2019-06-03] MEDS: DEXTROSE 5% 1,000 ML 1,000 ML 50 ML IV CONT (15:25)
[2019-06-03 18:01] LABS: Glucose Point of Care 114 (65-105)
[2019-06-03 21:24] LABS: Glucose Point of Care 166 (65-105)
[2019-06-03 23:10] LABS: Ammonia 60 umol/L (9-30); Blood Urea Nitrogen 63 mg/dL (7-17); Calcium 8.6 mg/dL (8.4-10.2); Carbon Dioxide 22 mmol/L (22-30); Chloride 100 mmol/L (98-107); Estimated Glomerular Filt Rate 27; Glucose 137 mg/dL (65-105); Potassium 4.7 mmol/L (3.4-5.0); Sodium 136 mmol/L (137-145)
[2019-06-04] VITALS (26 sets, daily range): BP systolic 96–117; BP diastolic 50–70; PULSE 77–93; RESP 16–22; TEMP 35.9–36.5; O2SAT 93–100
[2019-06-04 00:25] LABS: Glucose Point of Care 135 (65-105)
[2019-06-04] MEDS: DONEPEZIL HCL 5 MG TABLET PO ×2 (00:49→21:48)
[2019-06-04] MEDS: LACTULOSE 20 GM/30 ML UDC 30 GM FEED TUBE (00:49)
[2019-06-04] MEDS: ALBUTEROL SULFATE NEB 2.5 MG/0.5 ML INH 5 MG INHALATION ×4 (01:35→22:20)
[2019-06-04] MEDS: IPRATROPIUM BR 0.02% INH SOLN 0.5 MG/2.5 ML VIAL INHALATION ×4 (01:35→22:20)
[2019-06-04 04:42] LABS: Hemoglobin 13.3 g/dL (12.0-15.0); Mean Corpuscular HGB Conc 28.9 g/dl (32-36); Mean Corpuscular Hemoglobin 26.8 pg (26-34); Mean Corpuscular Volume 92.6 fl (80-100); Mean Platelet Volume 9.2 fl (7.4-10.4); Platelet Count Result 251 k/mm3 (150-375); Red Blood Count 4.97 M/mm3 (4.2-5.4); Red Cell Distribution Width 18.8 % (11.5-14.5); White Blood Count 8.4 K/mm3 (4.5-10.0)
[2019-06-04 05:03] LABS: Albumin Level 3.4 g/dL (3.5-5.1); Alkaline Phosphatase 102 U/L (38-126); Bilirubin,Total 0.6 mg/dL (0.2-1.3); Blood Urea Nitrogen 65 mg/dL (7-17); Calcium 8.5 mg/dL (8.4-10.2); Carbon Dioxide 21 mmol/L (22-30); Chloride 99 mmol/L (98-107); Estimated Glomerular Filt Rate 26; Glucose 146 mg/dL (65-105); Magnesium 2.4 mg/dL (1.6-2.3); Phosphorus 7.2 mg/dL (2.5-4.5); Potassium 4.8 mmol/L (3.4-5.0); Sodium 134 mmol/L (137-145)
[2019-06-04 05:46] LABS: Alanine Aminotransferase 867 U/L (4-35); Aspartate Amino Transferase 1486 U/L (14-36)
[2019-06-04 06:20] LABS: Glucose Point of Care 139 (65-105)
--- NOTE | 2019-06-04 08:50 | PC.NURSE ---
Called Dr. Morataya to discuss pt lab changes - increase in creatinine, BUN, AST, ALT. Patient remains obtunded, will open eyes to name, and pain. Patient will not follow commands. Pt had multiple loose stool overnight, decrease in urine output. Dr. Morataya aware. Order obtained for stool culture, Dr. Morataya considering repeating paracentesis for patient ascites, will repeat ammonia. Will continue to monitor at this time. Will contact family.
[2019-06-04] MEDS: BUMETANIDE INJ 2.5 MG/10 ML VIAL 2 MG IVPB (08:53)
[2019-06-04] MEDS: MEMANTINE 5 MG TABLET PO (08:54)
[2019-06-04] MEDS: LACTULOSE 20 GM/30 ML UDC 30 GM PO ×2 (08:54→17:19)
[2019-06-04] MEDS: ASPIRIN 81 MG ENTERIC TABLET PO (08:54)
--- NOTE | 2019-06-04 09:17 | PM.PNCARD ---
Progress Note: A&P Assessment and Plan (1) Chronic diastolic CHF (congestive heart failure): Code(s): I50.32 - Chronic diastolic (congestive) heart failure Status: Acute Assessment and Plan: Patient with hypoxia yesterday requiring high-flow oxygen. Initially she was admitted with shock and received a lot of IV fluids, albumin cetera. She does have edema and her chest x-ray 06/03/19 suggests CHF. However, she has not responded well to Lasix 80 mg IV push or Bumex 2 mg IV push b.i.d.. Although total body volume overloaded, she must be intravascularly dry. Perhaps it will take more time to reclaim the fluid. DC Bumex since it is not helping and she is not getting much fluid in. Will check chest x-ray tomorrow and see how her oxygen requirements go. Might try diuretic with albumin if we don't make any progress. Need for tube feeding? (2) Encephalopathy: Code(s): G93.40 - Encephalopathy, unspecified Status: Acute Assessment and Plan: Slightly more awake than yesterday (3) Cirrhosis of liver with ascites: Qualifiers: Hepatic cirrhosis type: unspecified hepatic cirrhosis Qualified Code(s): K74.60 - Unspecified cirrhosis of liver; R18.8 - Other ascites Code(s): K74.60 - Unspecified cirrhosis of liver; R18.8 - Other ascites Status: Acute Assessment and Plan: Had paracentesis a few days ago (4) Pulmonary hypertension: Code(s): I27.20 - Pulmonary hypertension, unspecified Status: Acute Assessment and Plan: Severe pulmonary hypertension with right heart failure, will require high preload for good cardiac output, so far BP stable. (5) Acute renal failure (ARF): Qualifiers: Acute renal failure type: unspecified Qualified Code(s): N17.9 - Acute kidney failure, unspecified Code(s): N17.9 - Acute kidney failure, unspecified Status: Acute Assessment and Plan: Creatinine bouncing up and down but stable recently. Subjective Date/time seen: 06/04/19 09:17 Interval history: Follow-up of diastolic CHF, pulmonary hypertension, right heart failure, acute renal failure, cirrhosis with ascites, with recent septic and cardiogenic shock in a [facility] patient with dementia. Visit 06/03/2019: Thought to be volume overloaded now, little response to Lasix 80 mg IV push x1, Bumex 2 mg IV push b.i.d. ordered Date of service 06/04/2019: Blood pressure stable overnight. O2 requirements have diminished, now on 6 L nasal cannula with O2 sat 93-98%. I's and O's yesterday only 355 in/325 out ([facility]). Now has an NG tube. Requests ice. Getting NS 50 cc an hour plus antibiotics. Review of Systems Review of Systems: ROS unobtainable: unobtainable due to mental condition (Patient has dementia, cannot answer most questions.) Constitutional: Constitutional: Reports as per HPI ENT: Reports as per HPI Cardiovascular: Cardiovascular: Reports as per HPI Respiratory: Respiratory: Reports as per HPI Gastrointestinal: Gastrointestinal: Reports as per HPI Musculoskeletal: Musculoskeletal: Reports as per HPI Integumentary/Breasts: Skin/Breast: Reports as per HPI Neurologic: Reports as per HPI Psychiatric: Psychiatric: Reports as per HPI Exam Narrative: Exam Narrative: Awakens to name, ?I want some ice.? Const: General: comfortable and no acute distress HENMT: Mouth: Yes dry mucous membranes Eyes: EOM: EOMs intact bilaterally Neck: Neck: supple Resp: Auscultation: diminished lung sounds Other: Can cooperate to take deep breaths for better exam Cardio: Rate: regular rate Rhythm: regular rhythm Heart sounds: Murmur heart sound present (2-3/6 LOGAN right sternal border) GI: Inspection: distended Other: Appears to have ascites Urinary Catheter: Urinary Catheter: urine dark Skin: General skin exam: normal color Neuro: Cognition (Neuro): abnormal cognition Extrem: Right upper extremity: edema Left upper ex
[2019-06-04] MEDS: DEXTROSE 5% 1,000 ML 1,000 ML 50 ML IV CONT (11:02)
--- NOTE | 2019-06-04 11:30 | PC.NURSE ---
Spoke with patient daughter, Grace, to obtain verbal consent for paracentesis. Communicated to daughter patient condition has declined - changes in alertness, and decline in kidney function. Daughter advised that she will come to hospital after judaism. Advised Dr. Morataya.
[2019-06-04 11:46] LABS: Partial Thromboplastin Time 31.6 SECONDS (22.3-36.8); Prothrombin Time 22.5 Seconds (11.1-14.7)
[2019-06-04 11:47] LABS: Ammonia 44 umol/L (9-30)
[2019-06-04 13:30] LABS: Glucose Point of Care 156 (65-105)
--- NOTE | 2019-06-04 14:00 | PC.NURSE ---
Patient tolerated paracentesis well, [address] Morataya advised.
[2019-06-04] MEDS: VANCOMYCIN ORAL 125 MG/2.5 ML SYRUP PO ×3 (14:31→23:37)
[2019-06-04] MEDS: HEPARIN SODIUM 5,000 UNITS/ML VIAL 5000 UNITS SUB-Q ×2 (14:31→21:48)
--- NOTE | 2019-06-04 16:20 | PM.CNNEP ---
Assessment and Plan Assessment and plan (1) Acute renal failure (ARF): Qualifiers: Acute renal failure type: unspecified Qualified Code(s): N17.9 - Acute kidney failure, unspecified Code(s): N17.9 - Acute kidney failure, unspecified Status: Acute (2) Shock: Code(s): R57.9 - Shock, unspecified Status: Acute (3) Cirrhosis of liver with ascites: Qualifiers: Hepatic cirrhosis type: unspecified hepatic cirrhosis Qualified Code(s): K74.60 - Unspecified cirrhosis of liver; R18.8 - Other ascites Code(s): K74.60 - Unspecified cirrhosis of liver; R18.8 - Other ascites Status: Acute (4) Pulmonary hypertension: Code(s): I27.20 - Pulmonary hypertension, unspecified Status: Acute (5) Biventricular heart failure: Code(s): I50.82 - Biventricular heart failure Status: Acute Assessment and Plan: . Additional Plan Sendy has suffered another acute insult to her kidneys as evidenced by her labs in the last 48 hours. Unfortunately, this is further complicated by her volume overload status unresponsive to diuretic therapy as well. My biggest concern would be is this the development of a hepatorenal syndrome or a variation of it given her complex medical history as is. For further evaluation of her 2nd episode of acute kidney injury/acute renal failure, I will recheck urine electrolytes, urine eosinophils and follow the trend of her urine output with ongoing diuretic therapy. IV albumin chased by IV diuretics is being attempted but if her volume status continues to deteriorate despite conservative interventions, she may need renal replacement therapy/dialysis to improve her fluid status. However, given her dementia and her multiple medical problems at baseline, it is questionable how well she will actually she would do with this type of intervention if the family wishes to pursue such therapy. Furthermore, if this is indeed an issue where her liver is the primary problem, then dialysis would only treat the symptom of her volume overload and not the underlying problem, that being her liver. Giving her declining health/status, I would discuss with the patient's family the aggressiveness of care they want to pursue as I worry that further invasive measures will not improve the quality of her life. For now, I would continue current therapy as is and follow up on the a for mention studies that I have ordered and follow the trend of her repeat labs and urine output. I will continue follow the patient with you while she remains hospitalized and make further recommendations during hospital course Thank you for allowing me to precipitate the care of this patient. History of Present Illness Reason for Consult Consult date: 06/04/19 Reason for consult: acute renal failure Chief Complaint Chief complaint: Shock, CHF History of Present Illness Narrative: The patient is an unfortunate 68 year old female with a past medical history as outlined below who presented to [facility] ER from her skilled nursing due to increased abdominal swelling. Most of the information I have obtained is from review of the electronic medical record as the patient cannot provide much history regarding the events that led to her admission. Her records at her nursing facility as well as confirmed by her daughter note that she apparently has gained 20 lb in last five days. She has a known history of liver cirrhosis does tend to accumulate ascites quite rapidly which was the initial concern with her abdominal swelling. I am unclear if she had any discomfort, pain or any other systemic symptoms with regard to her presentation to the emergency room. Workup and evaluation emergency room demonstrated patient was hemodynamically unstable with a systolic BP in the 70s. She immediately was aggressively resuscitated with normal saline but apparently was refractory to this interventi
--- NOTE | 2019-06-04 16:34 | PM.IMPN ---
Progress Note: A&P Assessment and Plan (1) Shock: Code(s): R57.9 - Shock, unspecified Status: Acute Assessment and Plan: secondary to septic shock. Patient has responded well to the Levophed and dobutamine Patient does have severe pulmonary hypertension and right-sided heart failure. Pt is weaned off dobutamine. Medically stable for the floor. Pt unfortunately appears lethargic today and sob Started on high flow oxygen, Cxr ordered pulmonary edema.Pt started on iv bumex. 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 here with encephalopathy, patient is unable to provide review of symptoms, however ascites getting enlarged and patient is more somnolent, paracentesis was done today and 2.4 L of fluid was removed, seen by bell ringer, initially upon arrival patient was hydrated due to sepsis, now patient is volume overloaded, patient is being diuresed with Lasix 80 mg IV without much urine output, continue to have anasarca, plan is to continue present management, bell ringer recommending to add albumin to help with diuresing and there is no much improvement, patient continued to be encephalopathic ammonia level was on 06/02 60 patient was given lactulose, today her ammonia level is 44. (2) Cirrhosis of liver with ascites: Qualifiers: Hepatic cirrhosis type: unspecified hepatic cirrhosis Qualified Code(s): K74.60 - Unspecified cirrhosis of liver; R18.8 - Other ascites Code(s): K74.60 - Unspecified cirrhosis of liver; R18.8 - Other ascites Status: Acute Assessment and Plan: The patient's meld score in March was normal. (3) Acute renal failure (ARF): Qualifiers: Acute renal failure type: unspecified Qualified Code(s): N17.9 - Acute kidney failure, unspecified Code(s): N17.9 - Acute kidney failure, unspecified Status: Acute Assessment and Plan: Likely due to septic shock, creat is 1.8. will continue D5W at t is not eating anything (4) Acute hyponatremia: Code(s): E87.1 - Hypo-osmolality and hyponatremia Status: Acute Assessment and Plan: Associated with cirrhosis with worsening of meld score. Subjective Date/time seen: 06/04/19 16:34 Interval history: Follow-up of diastolic CHF, pulmonary hypertension, right heart failure, acute renal failure, cirrhosis with ascites, with recent septic and cardiogenic shock in a assisted patient with dementia. Visit 06/03/2019: Thought to be volume overloaded now, little response to Lasix 80 mg IV push x1, Bumex 2 mg IV push b.i.d. ordered on 06/03 patient is 68-year-old with idiopathic liver cirrhosis ascites here with encephalopathy, patient is unable to provide review of symptoms, however ascites getting enlarged and patient is more somnolent, paracentesis was done today and 2.4 L of fluid was removed, seen by bell ringer, initially upon arrival patient was hydrated due to sepsis, now patient is volume overloaded, patient is being diuresed with Lasix 80 mg IV without much urine output, continue to have anasarca, plan is to continue present management, bell ringer recommending to add albumin to help with diuresing and there is no much improvement, patient continued to be encephalopathic ammonia level was on 06/02 60 patient was given lactulose, today her ammonia level is 44. Review of Systems Review of Systems: ROS unobtainable: unobtainable due to mental condition and unobtainable due to mental status Exam Narrative: Exam Narrative: Morbidly obese, Const: General: comfortable and no acute distress HENMT: General nose exam: Normal nares present Mouth: Yes moist mucous membranes Eyes: General: appearance normal, both eyes and all related structures Sclera: sclerae normal Neck: Neck: supple Resp: Other: Bilateral fair air entry with rales Cardio: Rate: reg
[2019-06-04 17:20] LABS: Glucose Point of Care 131 (65-105)
--- NOTE | 2019-06-04 17:45 | PC.NURSE ---
Dr. Morataya advised that patient urine output this shift noted to be 50 mL, no orders received at this time.
[2019-06-04 23:15] LABS: Glucose Point of Care 158 (65-105)
[2019-06-05] VITALS (28 sets, daily range): BP systolic 98–129; BP diastolic 50–59; PULSE 75–81; RESP 16–24; TEMP 35.6–36.9; O2SAT 93–100; BMI 39.9
[2019-06-05] MEDS: ALBUTEROL SULFATE NEB 2.5 MG/0.5 ML INH 5 MG INHALATION ×4 (03:50→21:25)
[2019-06-05] MEDS: IPRATROPIUM BR 0.02% INH SOLN 0.5 MG/2.5 ML VIAL INHALATION ×4 (03:50→21:25)
[2019-06-05 04:53] LABS: Hematocrit 45.7 % (37.0-47.0); Hemoglobin 12.7 g/dL (12.0-15.0); Mean Corpuscular HGB Conc 27.8 g/dl (32-36); Mean Corpuscular Hemoglobin 26.2 pg (26-34); Mean Corpuscular Volume 94.4 fl (80-100); Mean Platelet Volume 10.9 fl (7.4-10.4); Platelet Count Result 162 k/mm3 (150-375); Red Blood Count 4.84 M/mm3 (4.2-5.4); Red Cell Distribution Width 18.6 % (11.5-14.5); White Blood Count 13.8 K/mm3 (4.5-10.0)
[2019-06-05 05:02] LABS: Ammonia 47 umol/L (9-30)
[2019-06-05 05:38] LABS: Glucose Point of Care 135 (65-105)
[2019-06-05] MEDS: VANCOMYCIN ORAL 125 MG/2.5 ML SYRUP PO ×3 (05:38→18:34)
[2019-06-05] MEDS: DEXTROSE 5% 1,000 ML 1,000 ML 50 ML IV CONT (05:39)
[2019-06-05 06:25] LABS: Albumin Level 3.2 g/dL (3.5-5.1); Alkaline Phosphatase 105 U/L (38-126); Bilirubin,Total 1.1 mg/dL (0.2-1.3); Blood Urea Nitrogen 70 mg/dL (7-17); Calcium 8.1 mg/dL (8.4-10.2); Carbon Dioxide 17 mmol/L (22-30); Chloride 95 mmol/L (98-107); Estimated Glomerular Filt Rate 18; Glucose 141 mg/dL (65-105); Magnesium 2.4 mg/dL (1.6-2.3); Phosphorus 9.2 mg/dL (2.5-4.5); Potassium 5.1 mmol/L (3.4-5.0); Sodium 134 mmol/L (137-145)
[2019-06-05 06:31] LABS: Alanine Aminotransferase 1704 U/L (4-35)
[2019-06-05 07:14] LABS: Aspartate Amino Transferase 3817 U/L (14-36)
[2019-06-05] MEDS: HEPARIN SODIUM 5,000 UNITS/ML VIAL 5000 UNITS SUB-Q ×2 (09:26→21:22)
[2019-06-05] MEDS: LACTULOSE 20 GM/30 ML UDC 30 GM PO ×2 (09:26→18:31)
[2019-06-05] MEDS: MEMANTINE 5 MG TABLET PO (10:21)
[2019-06-05] MEDS: ASPIRIN 81 MG CHEWABLE TABLET FEED TUBE (10:21)
[2019-06-05 11:56] LABS: Glucose Point of Care 142 (65-105)
--- NOTE | 2019-06-05 13:06 | PM.CNNEP ---
Assessment and Plan Assessment and plan (1) Acute renal failure (ARF): Qualifiers: Acute renal failure type: unspecified Qualified Code(s): N17.9 - Acute kidney failure, unspecified Code(s): N17.9 - Acute kidney failure, unspecified Status: Acute Assessment and Plan: The patient has acute kidney injury. Etiology is unclear. Possible pre renal azotemia. Possible acute tubular necrosis due to hypertension when she was admitted. Hepatorenal syndrome is always a possibility because she has cirrhosis. Her blood pressure was very low on admission but since then has been reasonable at about 100-110. Her urine output has dropped off as the days go. At this point will try diuretics. I talked with the family at length. She has multiple comorbidities including chronic dementia, cirrhosis, pulmonary hypertension. Most likely the latter is what is bringing on the cirrhosis and the pre renal azotemia. The overall prognosis is poor. Some would look at the big picture realizing how many critical chronic issues that there are however the patient has stated that she wants everything done and the family standby that. Dr. Connelly talked them about possible dialysis yesterday they want to proceed with this. We discussed that dialysis is risky because of her low blood pressure. Also the patient has an INR of 2.0 which means that she could have bleeding as a result of the catheter placement. In spite of this if family wants to proceed. So I asked the nurse to consult surgery to place the catheter. (2) Shock: Code(s): R57.9 - Shock, unspecified Status: Acute Assessment and Plan: Blood pressure seems a bit better right now. She is on no pressors now. (3) Cirrhosis of liver with ascites: Qualifiers: Hepatic cirrhosis type: unspecified hepatic cirrhosis Qualified Code(s): K74.60 - Unspecified cirrhosis of liver; R18.8 - Other ascites Code(s): K74.60 - Unspecified cirrhosis of liver; R18.8 - Other ascites Status: Acute Assessment and Plan: Possibly due to the pulmonary hypertension? She has ascites which rapidly re-accumulates. (4) Pulmonary hypertension: Code(s): I27.20 - Pulmonary hypertension, unspecified Status: Acute Assessment and Plan: This is severe. Her pulmonary systolic pressure is higher than her systemic systolic blood pressure. (5) Biventricular heart failure: Code(s): I50.82 - Biventricular heart failure Status: Acute Assessment and Plan: . Additional Plan History of Present Illness Reason for Consult Consult date: 06/05/19 Chief Complaint Chief complaint: Shock, CHF History of Present Illness Narrative: Follow-up note on Dr. Rodriguez own goes consultation from yesterday. patient is sleepy. she has been like this all night and today. daughter in the room. we discussed at length. Review of Systems Review of Systems: ROS unobtainable: unobtainable due to mental condition PMFSH Past Medical History Medical History Anxiety CAP (community acquired pneumonia) Chronic diastolic CHF (congestive heart failure) Cirrhosis Dementia DM (diabetes mellitus) DVT (deep venous thrombosis) Encephalopathy History of stroke Hyperlipidemia Hypertension Respiratory failure Acute hypoxic hypercapnic respiratory failure March 2019 requiring intubation Right heart failure Schizophrenia Severe pulmonary arterial systolic hypertension RVSP of 130 on echocardiogram from March 2019 Surgical History Surgical History Surgical history unknown Family History Family History Unknown No problems noted. Social History Social History Social History: Code status: Full co
--- NOTE | 2019-06-05 15:03 | PM.PNCARD ---
Progress Note: A&P Assessment and Plan (1) Chronic diastolic CHF (congestive heart failure): Code(s): I50.32 - Chronic diastolic (congestive) heart failure Status: Acute Assessment and Plan: Initially she was admitted with shock and received a lot of IV fluids, albumin etc. She does have edema and her chest x-ray 06/03/19 suggests CHF. She has not responded well to Lasix 80 mg IV push or Bumex 2 mg IV push b.i.d.. Although total body volume overloaded, she must be intravascularly dry. Bumex has been discontinued. Some improvement in the pulmonary edema on chest x-ray. Seen by Dr. Talbot today. Need for tube feeding? (2) Encephalopathy: Code(s): G93.40 - Encephalopathy, unspecified Status: Acute Assessment and Plan: Unresponsive today. (3) Cirrhosis of liver with ascites: Qualifiers: Hepatic cirrhosis type: unspecified hepatic cirrhosis Qualified Code(s): K74.60 - Unspecified cirrhosis of liver; R18.8 - Other ascites Code(s): K74.60 - Unspecified cirrhosis of liver; R18.8 - Other ascites Status: Acute Assessment and Plan: Had paracentesis 06/04/2019. Drainage of 2.45 L of clear yellowish ascites. (4) Pulmonary hypertension: Code(s): I27.20 - Pulmonary hypertension, unspecified Status: Acute Assessment and Plan: Severe pulmonary hypertension with right heart failure, will require high preload for good cardiac output blood pressure has been a little soft but stable. (5) Acute renal failure (ARF): Qualifiers: Acute renal failure type: unspecified Qualified Code(s): N17.9 - Acute kidney failure, unspecified Code(s): N17.9 - Acute kidney failure, unspecified Status: Acute Assessment and Plan: Creatinine worse today. Thank you Dr. Talbot for your input. Plan is for dialysis. Additional Plan Cardiology will follow nori. Plan discussed with Dr. Lemus 1525 06/05/2019 Time Spent With Patient Time with patient: less than 15 minutes Subjective Date/time seen: 06/05/19 15:03 Interval history: Follow-up for: diastolic CHF, pulmonary hypertension, right heart failure, acute renal failure, cirrhosis with ascites, with recent septic and cardiogenic shock, dementia. Date of service: 06/05/2019 Subjective: Unresponsive. Review of Systems Review of Systems: ROS unobtainable: unobtainable due to mental condition (Unresponsive) Exam Narrative: Exam Narrative: Daughter at bedside. Unresponsive to verbal and painful stimuli. Const: General: no acute distress HENMT: Head: normal to inspection and normocephalic General nose exam: no epistaxis Mouth: Yes moist mucous membranes Neck: Neck: supple and no JVD Chest: Chest palpation & inspection: normal inspection of the chest Resp: Auscultation: diminished lung sounds Other: Can not cooperate to take deep breaths for better exam Cardio: Rate: regular rate Rhythm: regular rhythm Heart sounds: Murmur heart sound present (2-3/6 LOGAN right sternal border) GI: Inspection: distended GI Palp: Yes Soft to palpation Other: NG tube in place. NG tube clamped at this time Urinary Catheter: Urinary Catheter: urine dark Skin: General skin exam: normal color and rashes and/or lesions noted (Oozing from the right lower quadrant, Lovenox injection?) Neuro: General: patient obtunded Cognition (Neuro): abnormal cognition Extrem: Right lower extremity: edema and foot Left lower extremity: edema and foot Other: Has some edema of abdominal wall Psych: Other: Unable to assess. Unresponsive Objective Data Vital Signs Vital Signs: Vital Signs - 24 hr 06/04/19 16:00 06/04/19 16:12 06/04/19 16:20 Temperature 36.2 C L Pulse Rate 82 81 80 Respiratory Rate 20 20 20 Blood Pressure 101/50 L Pulse Oximetry 98 06/04/19 18:00
--- NOTE | 2019-06-05 15:34 | PM.IMPN ---
Progress Note: A&P Assessment and Plan (1) Shock: Code(s): R57.9 - Shock, unspecified Status: Acute Assessment and Plan: secondary to septic shock. Patient has responded well to the Levophed and dobutamine Patient does have severe pulmonary hypertension and right-sided heart failure. Pt is weaned off dobutamine. Medically stable for the floor. Pt unfortunately appears lethargic today and sob Started on high flow oxygen, Cxr ordered pulmonary edema.Pt started on iv bumex. ammonia level ordered, cadiology consulted 06/05/19 15:34 on 06/03 patient is 68-year-old with idiopathic liver cirrhosis and ascites here with encephalopathy, patient is unable to provide review of symptoms, however ascites was getting enlarged and patient was more somnolent, paracentesis was done and 2.4 L of fluid was removed, seen by road mender, initially upon arrival patient was hydrated due to sepsis, now patient is volume overloaded, patient is being diuresed with Lasix 80 mg IV without much urine output, continue to have anasarca, road mender recommending to add albumin to help with diuresing and there is no much improvement, patient seen by carbon capture power plant operator patient kidney function is not improving dialysis possibility however patient with severe liver cirrhosis would not benefit and with her dementia be difficult, patient continued to be encephalopathic ammonia level was on 06/03 59 patient was given lactulose, today her ammonia level is 47, on 06/04 spoke with the patient's 2 daughters patient's prognosis is poor however family wish to do everything possible including dialysis, patient has NG tube will start the N G-tube feeding. (2) Cirrhosis of liver with ascites: Qualifiers: Hepatic cirrhosis type: unspecified hepatic cirrhosis Qualified Code(s): K74.60 - Unspecified cirrhosis of liver; R18.8 - Other ascites Code(s): K74.60 - Unspecified cirrhosis of liver; R18.8 - Other ascites Status: Acute Assessment and Plan: The patient's meld score in March was normal. (3) Acute renal failure (ARF): Qualifiers: Acute renal failure type: unspecified Qualified Code(s): N17.9 - Acute kidney failure, unspecified Code(s): N17.9 - Acute kidney failure, unspecified Status: Acute Assessment and Plan: Likely due to septic shock, creatinine today is 3.1 patient is seen by carbon capture power plant operator most likely patient will need dialysis plan is above (4) Acute hyponatremia: Code(s): E87.1 - Hypo-osmolality and hyponatremia Status: Acute Assessment and Plan: Associated with cirrhosis with mild sodium today is 134 Subjective Date/time seen: 06/05/19 15:34 on 06/03 patient is 68-year-old with idiopathic liver cirrhosis and ascites here with encephalopathy, patient is unable to provide review of symptoms, however ascites was getting enlarged and patient was more somnolent, paracentesis was done and 2.4 L of fluid was removed, seen by road mender, initially upon arrival patient was hydrated due to sepsis, now patient is volume overloaded, patient is being diuresed with Lasix 80 mg IV without much urine output, continue to have anasarca, road mender recommending to add albumin to help with diuresing and there is no much improvement, patient seen by carbon capture power plant operator patient kidney function is not improving dialysis possibility however patient with severe liver cirrhosis would not benefit and with her dementia be difficult, patient continued to be encephalopathic ammonia level was on 06/02 60 patient was given lactulose, today her ammonia level is 47, on 06/04 spoke with the patient's 2 daughters patient's prognosis is poor however family wish to do everything possible including dialysis, patient has NG tube will start theN G-tube feeding. Review of Systems Review of Systems: ROS unobtainable: unobtainable due to mental condition and unobtainable due t
[2019-06-05 15:45] LABS: Hepatitis B Surface Antigen Negative (Negative)
[2019-06-05 15:50] LABS: Hepatitis B Core IgM Result Negative (Negative)
--- NOTE | 2019-06-05 15:53 | PM.CNGS ---
Assessment and Plan Assessment and plan (1) Acute renal failure (ARF): Qualifiers: Acute renal failure type: unspecified Qualified Code(s): N17.9 - Acute kidney failure, unspecified Code(s): N17.9 - Acute kidney failure, unspecified Status: Acute Assessment and Plan: Evaluated the patient. Discussed case with Dr. Artis. Will proceed with placement of a central venous catheter for temporary dialysis possibly tomorrow by Dr. Artis. Description of the procedure, risks, benefits, indications, and expected outcomes were discussed with the patient's daughter in detail. All questions were answered. (2) DM (diabetes mellitus): Code(s): E11.9 - Type 2 diabetes mellitus without complications Status: Chronic (3) COPD (chronic obstructive pulmonary disease): Qualifiers: COPD type: unspecified COPD Qualified Code(s): J44.9 - Chronic obstructive pulmonary disease, unspecified Code(s): J44.9 - Chronic obstructive pulmonary disease, unspecified Status: Chronic (4) Pulmonary edema: Code(s): J81.1 - Chronic pulmonary edema Status: Acute (5) Pulmonary hypertension: Code(s): I27.20 - Pulmonary hypertension, unspecified Status: Acute (6) Ascites: Code(s): R18.8 - Other ascites Status: Acute (7) Shock: Code(s): R57.9 - Shock, unspecified Status: Acute (8) Cirrhosis of liver with ascites: Qualifiers: Hepatic cirrhosis type: unspecified hepatic cirrhosis Qualified Code(s): K74.60 - Unspecified cirrhosis of liver; R18.8 - Other ascites Code(s): K74.60 - Unspecified cirrhosis of liver; R18.8 - Other ascites Status: Acute (9) Coagulopathy: Code(s): D68.9 - Coagulation defect, unspecified Status: Acute (10) Chronic diastolic CHF (congestive heart failure): Code(s): I50.32 - Chronic diastolic (congestive) heart failure Status: Acute (11) Encephalopathy: Code(s): G93.40 - Encephalopathy, unspecified Status: Acute History of Present Illness Consult details Consult date: 06/05/19 Reason for consult: other (Placement of a temporary dialysis catheter) Requesting physician: Ehsan Talbot MD Narrative: This is a 68-year-old -Prydeinig female with a history of congestive heart failure, COPD, hypertension, diabetes mellitus, history of a stroke, liver cirrhosis, pulmonary hypertension, dementia, and schizophrenia. She presented to the hospital on 05/29/19 and was admitted for shock, liver cirrhosis, and acute renal failure. The patient was initially in the ICU with vasopressor and inotropic medication support. She is now off the supportive medications and out of the ICU. Patient now in IMU and Nephrology was consulted due to the acute renal failure. The patient's creatinine now is at 3.1 today and has been trending up over the past few days. She apparently has also become more lethargic in the last 48 hours and is unable to answer any questions for me today. Her daughter, Zora, is at the bedside and is the person I obtained her history from as well as the electronic medical record. Nephrology has consulted our service for evaluation for placement of a temporary dialysis catheter. Patient is now being seen on the IMU floor. Review of Systems Review of Systems: ROS unobtainable: unobtainable due to mental condition and unobtainable due to mental status PMFSH Past Medical History Medical History Anxiety CAP (community acquired pneumonia) Chronic diastolic CHF (congestive heart failure) Cirrhosis Dementia DM (diabetes mellitus) DVT (deep venous thrombosis) Encephalopathy History of stroke Hyperlipidemia Hypertension Respiratory failure Acute hypoxic hypercapnic respiratory failure March 2019 requiring intubation Right heart failure Schizophrenia Severe pulmonary arterial systolic hypertension RVSP of 130 on echo
[2019-06-05 16:02] LABS: Hepatitis B Surface Anti Res Negative
[2019-06-05 16:04] LABS: Hepatitis C Virus Antibody Negative (Negative)
[2019-06-05 18:03] LABS: Sodium Urine Random < 5 meq/L
[2019-06-05 18:37] LABS: Glucose Point of Care 136 (65-105)
[2019-06-05] MEDS: DONEPEZIL HCL 5 MG TABLET PO (21:25)
[2019-06-06] VITALS (43 sets, daily range): BP systolic 80–119; BP diastolic 40–78; PULSE 70–82; RESP 12–26; TEMP 36.4–37.3; O2SAT 3–100
[2019-06-06 00:03] LABS: Glucose Point of Care 163 (65-105)
[2019-06-06] MEDS: DEXTROSE 5% 1,000 ML 1,000 ML 50 ML IV CONT (00:24)
[2019-06-06] MEDS: VANCOMYCIN ORAL 125 MG/2.5 ML SYRUP PO ×3 (00:25→18:27)
[2019-06-06] MEDS: ALBUTEROL SULFATE NEB 2.5 MG/0.5 ML INH 5 MG INHALATION ×4 (01:35→20:30)
[2019-06-06] MEDS: IPRATROPIUM BR 0.02% INH SOLN 0.5 MG/2.5 ML VIAL INHALATION ×4 (01:35→20:30)
[2019-06-06 05:00] LABS: Glucose Point of Care 127 (65-105)
[2019-06-06 05:16] LABS: Ammonia 48 umol/L (9-30)
[2019-06-06 05:59] LABS: Glucose Peritoneal Fluid 184 mg/dL; LDH Peritoneal Fluid 83 U/L (<63); Total Protein Peritoneal Fluid <3.0 g/dL
[2019-06-06 05:59] LABS: Creatinine Urine 191.7 mg/dL; Total Protein Urine Random 57 mg/dL
[2019-06-06 08:31] LABS: Hematocrit 45.9 % (37.0-47.0); Hemoglobin 12.6 g/dL (12.0-15.0); Mean Corpuscular HGB Conc 27.5 g/dl (32-36); Mean Corpuscular Hemoglobin 26.1 pg (26-34); Platelet Count Result 42 k/mm3 (150-375); Red Blood Count 4.83 M/mm3 (4.2-5.4); Red Cell Distribution Width 19.1 % (11.5-14.5); White Blood Count 15.5 K/mm3 (4.5-10.0)
[2019-06-06 08:45] LABS: INR 3.7; Partial Thromboplastin Time 36.2 SECONDS (22.3-36.8); Prothrombin Time 36.4 Seconds (11.1-14.7)
[2019-06-06 08:49] LABS: Albumin Level 3.1 g/dL (3.5-5.1); Alkaline Phosphatase 116 U/L (38-126); Bilirubin,Total 1.6 mg/dL (0.2-1.3); Blood Urea Nitrogen 82 mg/dL (7-17); Calcium 7.5 mg/dL (8.4-10.2); Carbon Dioxide 15 mmol/L (22-30); Chloride 95 mmol/L (98-107); Glucose 146 mg/dL (65-105); Magnesium 2.5 mg/dL (1.6-2.3); Phosphorus 10.5 mg/dL (2.5-4.5); Potassium 5.4 mmol/L (3.4-5.0); Sodium 132 mmol/L (137-145)
[2019-06-06 08:57] LABS: Band Neutrophils Percent 5 % (0-6); Lymphocytes Absolute Manual 0.46 K/mm3 (1.1-4.5); Monocytes Absolute Manual 0.62 K/mm3 (0.1-0.90); Monocytes Percent Manual 4 % (3-9); Neutrophils Absolute Manual 14.41 K/mm3 (1.7-7.2); Neutrophils Percent Manual 88 % (46-73); Nucleated Red Blood Cells 5 %; Total Cells Counted 100
[2019-06-06 08:59] LABS: Platelet Estimate Decreased (Adequate)
[2019-06-06 09:04] LABS: Estimated Glomerular Filt Rate 15
[2019-06-06 09:12] LABS: Alanine Aminotransferase 2362 U/L (4-35); Aspartate Amino Transferase 4576 U/L (14-36)
--- NOTE | 2019-06-06 11:49 | WPDANESEPPF ---
Anes - Initial Pre Proc Eval Procedure: Operation Date: 06/06/19 11:30 Proposed Procedures p Insertion Amish Catheter - Hans Artis MD Date/Time: 06/06/19 11:49 Surgeon: Bolivar Fairbanks MD Pre Op Diagnosis: Shock, CHF Patient Data Age: 68 Gender: F Height: 4 ft 11 in Weight: 90.5 kg Last Vital Signs Temp 99.2 F 06/06/19 11:23 Pulse 79 06/06/19 11:23 Resp 18 06/06/19 11:23 BP 106/78 06/06/19 11:23 Pulse Ox 100 06/06/19 11:23 Allergies Allergy/AdvReac Type Severity Reaction Status Date / Time Iodinated Contrast Media Allergy Stopped Verified 06/06/19 11:21 Breathing meperidine [From Demerol] Allergy Swelling Verified 06/06/19 11:21 of Lip/Tongue/Throat Home Medications Medication Instructions Recorded Confirmed Type budesonide-formoterol 2 puff INHALATION Q12H 03/20/19 05/30/19 History furosemide 80 mg PO DAILY 03/20/19 05/30/19 History haloperidol decanoate 100 mg IM MONTHLY 03/20/19 05/30/19 History metolazone 5 mg PO 3XW 03/20/19 05/30/19 History pantoprazole 40 mg PO QAM 03/20/19 05/30/19 History spironolactone 25 mg PO DAILY 03/20/19 05/30/19 History acetaminophen 1,000 mg PO Q8H 03/24/19 05/30/19 History lactulose 30 g PO TID 03/24/19 05/30/19 History albuterol sulfate 2 puff INHALATION QID PRN 05/29/19 05/30/19 History aspirin [Aspir-81] 81 mg PO DAILY 05/29/19 05/30/19 History carvedilol 12.5 mg PO BID 05/29/19 05/30/19 History divalproex 250 mg PO Q12H 05/29/19 05/30/19 History donepezil [Aricept] 5 mg PO HS 05/29/19 05/30/19 History memantine [Namenda] 5 mg PO QAM 05/29/19 05/30/19 History nicotine 1 patch TRANSDERMAL DAILY 05/29/19 05/30/19 History olanzapine 5 mg PO HS 05/29/19 05/30/19 History potassium chloride 20 meq PO DAILY 05/29/19 05/30/19 History atorvastatin 80 mg PO HS 05/30/19 05/30/19 History insulin aspart U-100 [Novolog 1 sliding scale dose SUBCUT 05/30/19 05/30/19 History U-100 Insulin aspart] USEASDIRECTD Laboratory Tests 05/30/19 06/05/19 06/05/19 10:53 11:35 14:50 WBC RBC Hgb Hct MCV MCH MCHC RDW Plt Count MPV Immature Gran % (Auto) Neut % (Auto) Lymph % (Auto) Rutherford % (Auto) Eos % (Auto) Baso % (Auto) Lymph # (Auto) Rutherford # (Auto) Eos # (Auto) Baso # (Auto) Abs Immat Gran (auto) Absolute Neuts (auto) Absolute Nucleated RBC Total Counted Neutrophils % (Manual) Band Neutrophils % Lymphocytes % (Manual) Monocytes % (Manual) Nucleated RBC % Abs Neuts (Manual) Abs Lymphs (Manual) Abs Monocytes (Manual) Nucleated RBCs Platelet Estimate % Immature Plt Fraction PT INR APTT Sodium Potassium Chloride Carbon Dioxide BUN Creatinine Estim Creat Clear Calc Estimated GFR Glucose POC Capillary Glucose 142 mg/dl H mg/dl (65-105) Calcium Phosphorus Magnesium Total Bilirubin AST ALT Alkaline Phosphatase Ammonia Total Protein Albumin Urine Eosinophils U Random Total Protein Ur Random Sodium Urine Creatinine Peritoneal Tot Protein <3.0 g/dL g/dL Peritoneal LDH 83 U/L H U/L (<63) Peritoneal Glucose 184 mg/dL mg/dL Hep Bs Antigen Cancelled Hep Bs Antibody Cancelled Hep B Core Total Ab Hep B Core IgM Ab Hepa
[2019-06-06] MEDS: SODIUM CHLORIDE 0.9% IV 500 ML 30 ML IV CONT (12:15)
--- NOTE | 2019-06-06 12:39 | PM.IMPN ---
Progress Note: A&P Assessment and Plan (1) Severe pulmonary arterial systolic hypertension: Code(s): I27.21 - Secondary pulmonary arterial hypertension Status: Deleted Assessment and Plan: Echocardiogram in March showing a pulmonary pressure of 130 mmHg. Etiology unclear but consider untreated sleep apnea or chronic pulmonary embolisms. Also consider undiagnosed primary pulm HTN henri felt less likely. Pulmonary consult. Plan to repeat Echo. Discussed with Pulmonary. Appreciate their input. (2) Shock: Code(s): R57.9 - Shock, unspecified Status: Acute Assessment and Plan: Patient with hypotension on admission felt to be shock. Patient responded well to the Levophed and dobutamine and these have been weaned off on May 31. Continue to monitor blood pressure closely. Cultures are negative. We will stop Rocephin. (3) Cirrhosis of liver with ascites: Qualifiers: Hepatic cirrhosis type: unspecified hepatic cirrhosis Qualified Code(s): K74.60 - Unspecified cirrhosis of liver; R18.8 - Other ascites Code(s): K74.60 - Unspecified cirrhosis of liver; R18.8 - Other ascites Status: Acute Assessment and Plan: Etiology unclear for the cirrhosis. Could be related to the severe pulmonary hypertension. Unclear if if patient had issue with alcohol in the past. Hepatitis panel was negative. Paracentesiss on 05/29 with 1300ml removed and repeat on 06/03 with 2450ml removed. Current meld score is 37. Long-term prognosis is poor. Elevated LFTs noted which could be related to liver congestion. Low plt noted today but much different from yesterday so could be lab error. Will stop Heparin. Repeat plt count (4) Acute renal failure (ARF): Qualifiers: Acute renal failure type: unspecified Qualified Code(s): N17.9 - Acute kidney failure, unspecified Code(s): N17.9 - Acute kidney failure, unspecified Status: Acute Assessment and Plan: Baseline creatinine was normal in March. Creatinine 2.7 on admission that improved initially has worsened again to 3.7. No contrast exposure noted. Could be related to septic shock or hepatorenal syndrome. Consider also cardiorenal given the severe pulmonary hypertension. Appreciate Nephrology input. Hemodialysis catheter placed today patient currently undergoing hemodialysis for the 1st time. Continue monitor closely see how she tolerates this. Octreotide has been started. (5) Acute on chronic diastolic CHF (congestive heart failure): Code(s): I50.33 - Acute on chronic diastolic (congestive) heart failure Status: Acute Assessment and Plan: Echo on 04/03/19 showing EF 70% RV pressure overload and severe pulmonary HTN with PASP 130. No shunt. Diastolic dysfunction noted typeI. BNP 79840 on admission and CXR today showing cardiomegaly with pulmonary vascular congestion. Diuretics have been attempted with minimal affect. Plan now is to use her dialysis to improve fluid status. Monitor blood pressure closely. (6) Encephalopathy: Code(s): G93.40 - Encephalopathy, unspecified Status: Acute Assessment and Plan: Possibly related to the ammonia level. Also could be chronic. Currently on BiPAP so will check ABG. Continue lactulose. Hopefully dialysis will improve her mental status. (7) Acute hyponatremia: Code(s): E87.1 - Hypo-osmolality and hyponatremia Status: Acute Assessment and Plan: Mild hyponatremia. Serum sodium normally runs in the 130's range. Continue to monitor. (8) Dementia: Code(s): F03.90 - Unspecified dementia without behavioral disturbance Status: Acute Assessment and Plan: Patient with dementia and schizophrenia. Normally on Zyprexa, dilantin and IM monthly Haldol. Also takes Aricept and Namenda. Continue her [employer] home meds. Subjective Date/time seen: 06/06/19 12:39 Interval history
[2019-06-06] MEDS: LIDO 1%/EPINEPHRINE 1:100,000 20 ML VIAL INFILTRATE (12:40)
[2019-06-06] MEDS: HEPARIN SODIUM, PORCINE 10,000 UNITS/10 ML VIAL 10000 UNITS IV PUSH (12:41)
[2019-06-06] MEDS: HEPARIN SODIUM 5,000 UNITS/ML VIAL 5000 UNITS IRRIGATION (12:52)
--- NOTE | 2019-06-06 12:55 | PM.PROC ---
Procedure Note - Detailed Date of procedure: 06/06/19 Pre-op diagnosis: Shock, CHF End-stage renal disease, inadequate venous access Post-op diagnosis: same Procedure performed: Placement right internal jugular Amish central venous catheter under fluoroscopy Description of procedure: The patient is very ill. She was taken to the operating room and placed on the operating table. Her head was turned slightly to the left. She was unarousable throughout the surgery. Her airway was difficult throughout the surgery even though she received literally no anesthetic she was carefully monitored and her airway maintained. The right neck and right subclavian areas were prepped and draped. Local anesthesia was infiltrated over the right internal jugular vein. A single puncture was used to cannulate the internal jugular vein. A guidewire passed into the superior vena cava. We looked at its position under fluoroscopy. I had to maneuver the guidewire into the inferior vena cava to ensure its position. We then passed serial dilators over the guidewire. A 19.5 cm dual-lumen Amish catheter was then passed over the guidewire into the distal SVC right atrial junction. The position was checked with fluoroscopy. The guidewire was removed. Both ports flushed easily with heparin and aspirated blood readily. The catheter was given a final flush of heparin. It was capped and sutured to the skin with 3 0 nylon. The patient transferred to the recovery room in guarded condition due to her respiratory condition and overall illness. Anesthesia: MAC and local (0.5% Marcaine with epinephrine) Surgeon: Hans Artis MD Classified Copy Control Clerk: Megan CHILDS Estimated blood loss (mL): 5 Drains: No Packing: No Pathology: none sent Complications: None Condition: critical Disposition: PACU Findings: Tip of Amish catheter in distal SVC right atrial junction.
[2019-06-06 13:12] LABS: Glucose Point of Care 122 (65-105)
--- NOTE | 2019-06-06 13:24 | SUR.PHASEI ---
1255 dr camargo notified [facility] that pt was going to need bipap after procedure. rt notified by kristin. bipap placed on pt after arriving to [facility], pt obtunded and not responding to cryptologist or sternal rub. vss. radiology at bedside to do xray of rt neck after insertion of zafar cath by dr jorge. 1320 alfonso counts at bedside to get labs per dr camargo for a type and screen.
--- NOTE | 2019-06-06 14:03 | SUR.PHASEI ---
Disucussed patient's status with dr Reyes. Wants to leave patient on bipap. Patient to go to dialysis from here and then back to IMU. Discussed this with dialysis nurse and IMU nurse.
--- NOTE | 2019-06-06 14:13 | SUR.PHASEI ---
Patient going from here to Dialysis instead of back to room in IMU
[2019-06-06] MEDS: SODIUM CHLORIDE 0.9% IV 1,000 ML 999 ML IV CONT (14:35)
--- NOTE | 2019-06-06 15:05 | PM.CNPUL ---
Assessment and Plan Assessment and plan (1) Pulmonary hypertension assoc with unclear multi-factorial mechanisms: Code(s): I27.29 - Other secondary pulmonary hypertension Status: Acute Assessment and Plan: This patient likely has Pulmonary Hypertension WHO Group 5 Classification which is due to multiple causes including left sided diastolic dysfunction, probable underlying LAURO and COPD. Although the pulmonary pressures are reported as very high she would not be a good candidate for vasodilator therapy, prostacyclins or phosphodiasterase inhibitors. Calcium channel blockers would also no be helpful. Treatment of underlying disease including CHF, fluid removal with dialysis, using CPAP or BIPAP during sleep and treating her COPD with bronchodilators as well as maintaining oxygenation > 92% at all times is the mainstay of therapy. Her progonsis is very poor and I would discuss goals of care and code status with the family. I will order a STAT ABG because of lethargy and obtundation. She may need to be moved to ICU as she is at high risk for respiratory failure. History of Present Illness History of Present Illness Consult date: 06/06/19 Chief complaint: Shock, CHF Narrative: 68 y/o female with history of CHF, COPD, suspected LAURO, CRI, Schizophrenia, possible liver cirrhosis who we saw in Mar 2019. We are asked to see her for pulmonary hypertension reported on Echo in Mar with estimated pulmonary pressures of 130 mm Hg. She has significant diastolic dysfunction and suspected moderate to severe LAURO as well as COPD. When I saw her today she was in dialysis getting her first session of ultrafiltration but no planned fluid removal according to dialysis nurse. The patient was very lethargic and on BIPAP. I'm not certain how much sedation she got during dialysis catheter placement but I could not take a history Review of Systems Review of Systems: All systems reviewed & are unremarkable except as noted in HPI and below PMFSH Past Medical History Medical History (Updated 06/06/19 @ 15:16 by Jazmin Barrow MD) Anxiety CAP (community acquired pneumonia) Chronic diastolic CHF (congestive heart failure) Cirrhosis Dementia DM (diabetes mellitus) DVT (deep venous thrombosis) Encephalopathy History of stroke Hyperlipidemia Hypertension Respiratory failure Acute hypoxic hypercapnic respiratory failure March 2019 requiring intubation Right heart failure Schizophrenia Surgical History Surgical History Surgical history unknown Family History Family History Unknown No problems noted. Social History Social History Social History: Code status: Full code with IDPA form on chart Smoking status: Former smoker Tobacco type: cigarettes Alcohol intake: unknown Substance use: unknown Living arrangements: retirement Additional living arrangements comments: Pt lives at [facility]. Spiritual care concerns: No Agree to blood products: Yes Meds Home Medications and Allergies Home Medications Medication Instructions Recorded Confirmed Type budesonide-formoterol 2 puff INHALATION Q12H 03/20/19 05/30/19 History furosemide 80 mg PO DAILY 03/20/19 05/30/19 History haloperidol decanoate 100 mg IM MONTHLY 03/20/19 05/30/19 History metolazone 5 mg PO 3XW 03/20/19 05/30/19 History pantoprazole 40 mg PO QAM 03/20/19 05/30/19 History spironolactone 25 mg PO DAILY 03/20/19 05/30/19 History acetaminophen 1,000 mg PO Q8H 03/24/19 05/30/19 History lactulose 30 g PO TID 03/24/19 05/30/19 History albuterol sulfate 2 puff INHALATION QID PRN 05/29/19 05/30/19 History aspirin [Aspir-81] 81 mg PO DAILY 05/29/19 05/30/19 History carvedilol 12.5 mg PO BID 05/29/19 05/30/19 History divalproex 250 mg PO Q12H 05/29/19 03
--- NOTE | 2019-06-06 15:40 | PCDIET ---
Nutrition Follow-Up Complete: Inadequate oral intake at present related to altered mental status as evidenced by NPO, NG tube in place to suction. Patient to meet estimated nutritional needs. Goal: Goal not met. Continue with current goal. Pt current nutrition is Nepro with goal of 35ml/hr. Nutrition recommendation: agree Last recorded weight is 90.5 kg (steady from assessed wt) Bowel Motility:BM today Labs Reviewed: WBC 15.5, Na 132, K 5.4, GFR 15, BUN 82, Cr 3.70, Glucose 146, PO4 10.5, Mg 2.5, Bilirubin 1.6 Meds Noted:Lactulose, Zofran, Rocephin Additional Notes: EN currently on hold for dialysis catheter followed by dialysis today. EN will restart after both procedures and progress to goal of 35ml/hr. At goal, Nepro will provided 1386 kcals and 62g protein. We will follow labs and wt for tolerance and appropriateness of EN once dialysis starts. Follow up in 3 days.
[2019-06-06 15:55] LABS: Platelet Count Result 39 k/mm3 (150-375)
[2019-06-06 16:15] LABS: Base Excess ABG -2.7 mEq/l (+/-2.0); Fractional Inspired Oxygen 50 %; HCO3 ABG 22.8 mEq/l (22.0-26.0); Oxygen Content ABG 18.6 %vol (16.0-22.0); Oxygen Saturation ABG 98.1 % (95.0-100.0); Oxyhemoglobin 96.2 % THb (90.0-100.0); PCO2 ABG 42.1 mmHg (35.0-45.0); PO2 ABG 116.1 mmHg (80.0-100.0); PO2 FiO2 Ratio Arterial Blood 2.32 %; Total Hemoglobin 13.6 g/dL (12.0-18.0); pH ABG 7.351 (7.350-7.450)
[2019-06-06 16:16] LABS: Device NON-INVASIVE VENT; Modified Allen's Test Pass; Site Drawn RIGHT RADIAL
[2019-06-06 16:17] LABS: Non-Invasive Expiratory Pressure 5 CMH2O; Non-Invasive Inspiratory Pressure 15 CMH2O; Non-Invasive Vent Rate 8 /MIN
--- NOTE | 2019-06-06 17:06 | PM.PNNEP ---
Progress Note: A&P Assessment and Plan (1) Acute renal failure (ARF): Qualifiers: Acute renal failure type: unspecified Qualified Code(s): N17.9 - Acute kidney failure, unspecified Code(s): N17.9 - Acute kidney failure, unspecified Status: Acute Assessment and Plan: The patient has acute kidney injury. Etiology is unclear. Possible pre renal azotemi due to pulmonary hypertension. with very low sodium consider hepatorenal syndrome. will start midodrine and octreotide in case this is the issue. Her blood pressure was very low on admission but since then has been reasonable at about 100-110. Her urine output is low. will try dialysis today after catheter has been placed. bp is borderline. perhaps midodrine will help. we can use albumin in dialuysis as well. (2) Shock: Code(s): R57.9 - Shock, unspecified Status: Acute Assessment and Plan: Blood pressure seems a bit better right now. starting midodrine. (3) Cirrhosis of liver with ascites: Qualifiers: Hepatic cirrhosis type: unspecified hepatic cirrhosis Qualified Code(s): K74.60 - Unspecified cirrhosis of liver; R18.8 - Other ascites Code(s): K74.60 - Unspecified cirrhosis of liver; R18.8 - Other ascites Status: Acute Assessment and Plan: Possibly due to the pulmonary hypertension? She has ascites which rapidly re-accumulates. LFTs high., perhaps due to the hepatic congestion? (4) Pulmonary hypertension: Code(s): I27.20 - Pulmonary hypertension, unspecified Status: Acute Assessment and Plan: This is severe. Her pulmonary systolic pressure is higher than her systemic systolic blood pressure. Discussewd with Dr Fairbanks,. he is getting a pulmonary consult. (5) Biventricular heart failure: Code(s): I50.82 - Biventricular heart failure Status: Acute Assessment and Plan: . Additional Plan Subjective Date/time seen: 06/06/19 17:06 Interval history: seen at 8am pt is comfortable but not interactive. resting in bed Exam Narrative: Exam Narrative: Well developed well-nourished in no acute distress Lungs clear Heart regular without rub Abdomen bowel sounds positive soft nontender Extremities 1-2+ edema Skin no rash or sq nodules Objective Data Vital Signs Vital Signs: Vital Signs - 24 hr 03/16/20 18:00 06/05/19 19:36 06/05/19 20:00 Temperature 36.8 C Pulse Rate 78 79 78 Respiratory Rate 20 Blood Pressure 99/55 L Pulse Oximetry 94 06/05/19 21:25 06/05/19 21:33 06/05/19 21:34 Temperature Pulse Rate 78 78 Respiratory Rate 16 16 Blood Pressure Pulse Oximetry 95 06/05/19 22:00 06/05/19 23:40 06/05/19 23:53 Temperature 36.8 C Pulse Rate 78 80 79 Respiratory Rate 20 Blood Pressure 112/59 L Pulse Oximetry 100 06/06/19 01:35 06/06/19 01:46 06/06/19 02:00 Temperature Pulse Rate 79 79 79 Respiratory Rate 16 16 Blood Pressure Pulse Oximetry 06/06/19 03:45 06/06/19 04:00 06/06/19 05:48 Temperature 36.8 C Pulse Rate 78 79 77 Respiratory Rate 22 H Blood Pressure 94/45 L Pulse Oximetry 96 06/06/19 07:42 06/06/19 08:00 06/06/19 09:43 Temperature 36.4 C Pulse Rate 77 77 77 Respiratory Rate 16 16 24 H Blood Pressure 102/50 L Pulse Oximetry 93 93 06/06/19 09:52 06/06/19 10:00 06/06/19 11:23 Temperature 37.3 C Pulse Rate 80 77 79 Respiratory Rate 24 H 18 Blood Pressure 106/78 Pulse Oximetry 100 06/06/19 12:00 06/06/19 13:05 06/06/19 13:20 Temperature 36.5 C Pulse Rate 77 75 76 Respiratory Rate 14 12 Blood Pressure 86/60 L 97/54 L Pulse Oximetry 100 98 06/06/19 13:35 06/06/19 13:50 06/06/19 13:52 Temperature Pulse Rate 75 73 76 Respiratory Rate 20 12 22 H Blood Pressure 85/61 L 101/47 L Pulse Oximetry 98 99 100 06/06/19 14:05 06/06/19 14:30 06/06/19 14:35 Temperature 36.5 C Pulse Rate 75 73
[2019-06-06] MEDS: HEPARIN SODIUM 1,000 UNITS/ML VIAL 1000 UNITS IV PUSH (17:12)
[2019-06-06] MEDS: ASPIRIN 81 MG CHEWABLE TABLET FEED TUBE (18:28)
[2019-06-06] MEDS: LACTULOSE 20 GM/30 ML UDC 30 GM PO (18:28)
[2019-06-06] MEDS: OCTREOTIDE ACETATE 0.1 MG/ML AMP SUB-Q (18:29)
[2019-06-06] MEDS: MEMANTINE 5 MG TABLET PO (18:29)
[2019-06-06] MEDS: MIDODRINE HCL 10 MG TABLET PO (18:29)
[2019-06-06] MEDS: SODIUM CHLORIDE 0.9% IV 1,000 ML 60 ML IV CONT (20:42)
--- NOTE | 2019-06-06 21:10 | PC.NURSE ---
Addendum entered by Maite Gonzalez RN 06/06/19 21:26: Pt transferred to ICU with respiratory at bedside. Belonging sent with pt. Original Note: pt transferred to the Unit
[2019-06-06 21:30] LABS: Alveolar/Arterial O2 Gradient 513.2 mmHg; Base Excess ABG -7.2 mEq/l (+/-2.0); Fractional Inspired Oxygen 100 %; HCO3 ABG 19.9 mEq/l (22.0-26.0); Oxygen Content ABG 19.3 %vol (16.0-22.0); Oxygen Saturation ABG 98.7 % (95.0-100.0); Oxyhemoglobin 96.7 % THb (90.0-100.0); PCO2 ABG 46.1 mmHg (35.0-45.0); PO2 ABG 153.7 mmHg (80.0-100.0); PO2 FiO2 Ratio Arterial Blood 1.54 %
[2019-06-06 21:31] LABS: pH ABG 7.253 (7.350-7.450)
[2019-06-06 21:32] LABS: Device NON-REBREATHER MASK; Modified Allen's Test Pass; Site Drawn RIGHT RADIAL
--- NOTE | 2019-06-06 22:14 | P.PCNBED_ITS ---
Procedures Central Line Placement: Right Femoral: Discussed w/ patient and/or surrogate, the non-emergent placement of a central venous catheter, including its clinical necessity/indication & associated potential risks & complications.: Yes The patient and/or surrogate understand(s) and acknowledge(s) the need to proceed with central venous catheter insertion as an important element of the patient's clinical management.: Yes Central Line Date: 06/06/19 Central Line Time: 20:30 Pre-procedural Time-Out was completed immediately before starting the procedure and confirmed: Patient Identification, Site, Procedure, Patient Position and the Availability of Requisite Equipment.: Yes Patient Position: supine Patient placed on monitor/pulse ox: Yes Provider Prep: mask, sterile gown, sterile gloves, Max. sterile barrier precautions, cap and hand hygiene Central line prep: Povidone-Iodine 1% Ultrasound used for placement: Yes Central line lumen inserted: triple Taiwanese: 7 Length (cm): 20 Depth of Insertion (cm): 20 Post procedure: sutured in place, good blood return, all ports aspirated, flushed, capped, tegaderm, hemostatic disc and aseptic technique maintained throughout procedure Patient tolerated procedure: well Complications: none Additional comments: Date of service of procedure was 06/06/2019 at 8:30 pm.
[2019-06-07] VITALS (40 sets, daily range): BP systolic 89–123; BP diastolic 50–70; PULSE 62–77; RESP 9–16; TEMP 35.4–37.5; O2SAT 93–100
--- NOTE | 2019-06-07 | ECHO_ITS ---
Patient Info Name: Sendy Malin Age: 68 years : 1950 Gender: Female Ht: 59 in Wt: 196 lbs BSA: 1.97 m2 HR: 72 bpm BP: 107 / 53 mmHg Heart Rhythm: Sinus Rhythm Technical Quality: Good Exam Date: 06/07/2019 10:00 AM Exam Location: [facility] Patient Status: Inpatient Admit Date: 05/29/2019 Staff Ordering Physician: Mathew Fairbanks MD Performance Improvement Specialist: Wilian Dale RDCS Attending Provider: Mathew Fairbanks MD Exam Type: CA echo doppler color flow Study Info Indications I27.0 - Primary pulmonary hypertension Complete two-dimensional, color flow and Doppler transthoracic echocardiogram is performed. History/Risk Factors Pulmonary hypertension; HFpEF, DM, murmur,hypoxia. Summary 1. Left ventricular chamber dimension is decreased. 2. Left ventricular systolic function is normal, estimated at >70%. 3. There is mildly increased left ventricular wall thickness. 4. The left ventricular diastolic function is grade I diastolic dysfunction. 5. Right ventricular chamber dimension is severely enlarged. 6. Right ventricular systolic function is reduced. 7. Severe pulmonary hypertension, estimated pulmonary arterial systolic pressure is 79 mmHg. 8. There is severe tricuspid valve regurgitation. 9. There is mild pulmonic regurgitation. 10. There is small pericardial effusion. 11. The tricuspid valve does not coapt completely. There is massive RV dilatation and hypokinesis. Severe RA enlargement. Pulmonary artery is enlarged. Severe pulmonary hypertension with severe tricuspid regurgitation. There is systolic and diastolic flattening of the interventricular septum consistent with RV pressure and volume overload. Left Ventricle Left ventricular chamber dimension is decreased. Left ventricular systolic function is normal, estimated at >70%. There is mildly increased left ventricular wall thickness. The left ventricular diastolic function is grade I diastolic dysfunction. Right Ventricle Right ventricular chamber dimension is severely enlarged. Right ventricular systolic function is reduced. Left Atria Left atrial chamber dimension is mildly enlarged. Right Atria Right atrial chamber dimension is severely enlarged. Atrial Septum Intact interatrial septum visualized by color flow imaging. Aortic Valve The aortic valve is trileaflet. There is mild aortic valve sclerosis. There is no aortic valve stenosis. There is trace aortic valve regurgitation. Pulmonic Valve The pulmonic valve is normal. There is no pulmonic valve stenosis. There is mild pulmonic regurgitation. Mitral Valve The mitral valve has thickened leaflets. There is no mitral valve stenosis. There is trace mitral valve regurgitation. Tricuspid Valve There is no significant tricuspid valve stenosis. There is severe tricuspid valve regurgitation. Severe pulmonary hypertension, estimated pulmonary arterial systolic pressure is 79 mmHg. Other Findings The tricuspid valve does not coapt completely. There is massive RV dilatation and hypokinesis. Severe RA enlargement. Pulmonary artery is enlarged. Severe pulmonary hypertension with severe tricuspid regurgitation. There is systolic and diastolic flattening of the interventricular septum consistent with RV pressure and volume overload. Pericardium/Pleural The pericardium appears normal. There is small pericardial effusion. Inferior Vena Cava Dilated inferior vena cava with <50% collapse upon inspiration consistent
[2019-06-07] MEDS: NOREPINEPHRINE 8 MG/D5W 250 ML 8 MG/250 ML BAG 9.4 MG IV CONT ×2 (01:21→21:45)
[2019-06-07] MEDS: ALBUTEROL SULFATE NEB 2.5 MG/0.5 ML INH 5 MG INHALATION ×4 (02:05→20:00)
[2019-06-07] MEDS: IPRATROPIUM BR 0.02% INH SOLN 0.5 MG/2.5 ML VIAL INHALATION ×4 (02:05→20:00)
[2019-06-07] MEDS: VANCOMYCIN ORAL 125 MG/2.5 ML SYRUP PO ×5 (02:33→23:48)
[2019-06-07] MEDS: DEXTROSE 5% 1,000 ML 1,000 ML 50 ML IV CONT ×2 (02:46→21:44)
[2019-06-07 05:35] LABS: Hematocrit 45.4 % (37.0-47.0); Hemoglobin 12.7 g/dL (12.0-15.0); Immature Platelet Fraction Pct 7.7 % (0.9-11.2); Mean Corpuscular Hemoglobin 26.2 pg (26-34); Mean Corpuscular Volume 93.6 fl (80-100); Platelet Count Result 53 k/mm3 (150-375); Red Blood Count 4.85 M/mm3 (4.2-5.4); Red Cell Distribution Width 19.6 % (11.5-14.5); White Blood Count 11.2 K/mm3 (4.5-10.0)
[2019-06-07 05:48] LABS: Ammonia 11 umol/L (9-30)
[2019-06-07 06:10] LABS: Albumin Level 2.9 g/dL (3.5-5.1); Alkaline Phosphatase 136 U/L (38-126); Bilirubin,Total 3.1 mg/dL (0.2-1.3); Blood Urea Nitrogen 63 mg/dL (7-17); Calcium 7.4 mg/dL (8.4-10.2); Carbon Dioxide 27 mmol/L (22-30); Chloride 94 mmol/L (98-107); Estimated Glomerular Filt Rate 16; Glucose 171 mg/dL (65-105); Phosphorus 8.6 mg/dL (2.5-4.5); Potassium 4.9 mmol/L (3.4-5.0); Sodium 134 mmol/L (137-145)
[2019-06-07 06:23] LABS: Aspartate Amino Transferase 2261 U/L (14-36)
[2019-06-07 06:36] LABS: Band Neutrophils Percent 1 % (0-6); Lymphocytes Absolute Manual 0.67 K/mm3 (1.1-4.5); Monocytes Percent Manual 9 % (3-9); Neutrophils Absolute Manual 9.52 K/mm3 (1.7-7.2); Neutrophils Percent Manual 84 % (46-73); Nucleated Red Blood Cells 6 %; Platelet Estimate Decreased (Adequate); Total Cells Counted 100
--- NOTE | 2019-06-07 06:51 | P.PNCROSS_ITS ---
Event Note Event Note Event Note: Nursing staff called and alerted me that the patient's blood pressure was 80s/40s. On my arrival to bedside I evaluated this 68 year old AA female who is currently being treated for hepatic encephalopathy and just came back from dialysis. The patient is obtunded and poorly responsive. She cannot answer any of my questions. Repeat blood pressures demonstrate a MAP of 56 mm Hg. I called Nephrology, Dr. Talbot who tells me that the patient has been obtunded for the past 3 days and that he gave her albumin today and midodrine to try to help with her blood pressure. I called the patient's family and talked with her daughter who verbalized to me that she wants everything done for her mother including central line placement and vasopressors. I have consulted our Natural Resource Manager, Dr. Jama who is in agreement with my plan to move the patient to the ICU. The patient was transferred to the ICU and a right femoral central line was placed and vasopressors were initiated. We continued treatment for her hepatic encephalopathy.
[2019-06-07 07:30] LABS: Alanine Aminotransferase 1816 U/L (4-35)
--- NOTE | 2019-06-07 08:04 | WPDANESPN ---
Anes - Prog Note Post-Op Date/Time: 06/07/19 08:04 Cardiovascular status: normal Respiratory status: normal Airway patency: baseline Mental status: baseline Post-Op hydration status: normal Vital Signs: Last Vital Signs Temp 37.2 C 06/07/19 04:00 Pulse 73 06/07/19 06:00 Resp 11 L 06/07/19 04:00 BP 107/58 L 06/07/19 04:00 Pulse Ox 96 06/07/19 04:00 I/O: Intake & Output 06/06/19 06/07/19 06/07/19 23:59 07:59 15:59 Intake Total 800 554 Output Total 100 275 Balance 700 279 Laboratory Tests 06/07/19 05:21 06/07/19 05:21 06/06/19 06/06/19 06/06/19 08:22 08:22 08:22 WBC 15.5 H RBC 4.83 Hgb 12.6 Hct 45.9 MCV 95.0 MCH 26.1 MCHC 27.5 L RDW 19.1 H Plt Count 42 L D MPV TNP Immature Gran % (Auto) Not Reportable Neut % (Auto) Not Reportable Lymph % (Auto) Not Reportable [place] % (Auto) Not Reportable Eos % (Auto) Not Reportable Baso % (Auto) Not Reportable Lymph # (Auto) Not Reportable [place] # (Auto) Not Reportable Eos # (Auto) Not Reportable Baso # (Auto) Not Reportable Abs Immat Gran (auto) Not Reportable Absolute Neuts (auto) Not Reportable Absolute Nucleated RBC Not Reportable Total Counted 100 Neutrophils % (Manual) 88 H Band Neutrophils % 5 Lymphocytes % (Manual) 3.0 L Monocytes % (Manual) 4 Nucleated RBC % Not Reportable Abs Neuts (Manual) 14.41 H Abs Lymphs (Manual) 0.46 L Abs Monocytes (Manual) 0.62 Nucleated RBCs 5 Platelet Estimate Decreased % Immature Plt Fraction 6.0 PT 36.4 H D INR 3.7 APTT 36.2 Puncture Site ABG pH ABG pCO2 ABG pO2 ABG PO2/FiO2 Ratio ABG HCO3 ABG O2 Saturation ABG O2 Content ABG Base Excess A-a Gradient Oxyhemoglobin Total Hemoglobin O2 Delivery Device O2 Liters/Min Vent Rate FiO2 Expiratory Pressure Inspiratory Pressure Sodium 132 L Potassium 5.4 H Chloride 95 L Carbon Dioxide 15 L BUN 82 H D Creatinine 3.70 H Estim Creat Clear Calc Not Reportable Estimated GFR 15 L Glucose 146 H POC Capillary Glucose Calcium 7.5 L Phosphorus 10.5 H Magnesium 2.5 H Total Bilirubin 1.6 H AST 4576 H ALT 2362 H Alkaline Phosphatase 116 Ammonia Total Protein 6.0 L Albumin 3.1 L Direct Plt-Bound IgG Ab Heparin-induced Plt Ab SIMÓN UFH Low Dose 0.1 SIMÓN UFH Low Dose 0.5 SIMÓN UFH High Dose 100 SIMÓN Unfract Heparin Com Hep-Induced Plt Ab Cmmt Blood Type Antibody Screen 06/06/19 06/06/19 06/06/19 13:09 13:22 15:50 WBC RBC Hgb Hct MCV MCH MCHC RDW Plt Count 39 L MPV TNP Immature Gran % (Auto) Neut % (Auto) Lymph % (Auto) [place] % (Auto) Eos % (Auto) Baso % (Auto) Lymph # (Auto) [place] # (Auto) Eos # (Auto) Baso # (Auto) Abs Immat Gran (auto) Absolute Neuts (auto) Absolute Nucleated RBC Total Counted Neutrophils % (Manual) Band Neutrophils % Lymphocytes % (Manual) Monocytes % (Manual) Nucleated RBC % Abs Neuts (Manual) Abs Lymphs (Manual) Abs Monocytes (Manual) Nucleated RBCs Platelet Estimate % Immature Plt Fraction 8.0 PT INR APTT Puncture Site ABG pH ABG pCO2 ABG pO2 ABG PO2/FiO2 Ratio ABG HCO3 ABG O2 Saturation ABG O2 Content ABG Base Excess A-a Gradient Oxyhemoglobin Total Hemoglobin O2 Delivery Device O2 Liters/Min Vent Rate FiO2 Expiratory Pressure Inspiratory Pressure Sodium Potassium Chloride Carbon Dioxide BUN Creatinine Estim Creat Clear Calc Estimated GFR Glucose POC Capillary Glucose 122 H Calcium Phosphorus Magnesium Total Bilirubin AST ALT Alkaline Phosphatase Ammonia Total Protein Albumin Direct Plt-Bound IgG Ab H
--- NOTE | 2019-06-07 08:18 | PM.IMPN ---
Progress Note: A&P Assessment and Plan (1) Pulmonary hypertension assoc with unclear multi-factorial mechanisms: Code(s): I27.29 - Other secondary pulmonary hypertension Status: Acute Assessment and Plan: Echocardiogram in March showing a pulmonary pressure of 130 mmHg. Etiology unclear but felt related to multiple factors including left sided diastolic dysfunction, LAURO and COPD. Appreciate Pulmonary input. Plan to repeat Echo. (2) Shock: Code(s): R57.9 - Shock, unspecified Status: Acute Assessment and Plan: Patient with hypotension on admission felt to be shock. Patient responded well to the Levophed and dobutamine and these have been weaned off on May 31. Cultures negative. Did well but did have HoTN overnight requiring central line placement and currently on Levophed. BP stable. Attempt HD again today. Wean off Levophed as toelrated. Continue to monitor blood pressure closely in ICU. (3) Cirrhosis of liver with ascites: Qualifiers: Hepatic cirrhosis type: unspecified hepatic cirrhosis Qualified Code(s): K74.60 - Unspecified cirrhosis of liver; R18.8 - Other ascites Code(s): K74.60 - Unspecified cirrhosis of liver; R18.8 - Other ascites Status: Acute Assessment and Plan: Etiology unclear for the cirrhosis. Could be related to the severe pulmonary hypertension. Unclear if if patient had issue with alcohol in the past. Hepatitis panel was negative. Paracentesiss on 05/29 with 1300ml removed and repeat on 06/03 with 2450ml removed. Current meld score is 37. Long-term prognosis is poor. Elevated LFTs noted which could be related to liver congestion or shock liver or . Levels improved today despite not removing any fluid and BP low overnight. TBili higher for unclear reasons. Continue to follow (4) Encephalopathy: Code(s): G93.40 - Encephalopathy, unspecified Status: Acute Assessment and Plan: Possibly related to the ammonia level and/or uremia. Also could be chronic. Some improvement this morning. Currently off BiPAP. ABG pending. Continue lactulose. Hopefully dialysis will continue to improve her mental status. Will check CT brain. (5) Acute renal failure (ARF): Qualifiers: Acute renal failure type: unspecified Qualified Code(s): N17.9 - Acute kidney failure, unspecified Code(s): N17.9 - Acute kidney failure, unspecified Status: Acute Assessment and Plan: Baseline creatinine was normal in March. Creatinine 2.7 on admission that improved initially has worsened again to 3.7. No contrast exposure noted. Could be related to septic shock or hepatorenal syndrome. Consider also cardiorenal given the severe pulmonary hypertension. Appreciate Nephrology input. Hemodialysis catheter placed and patient started HD on 06/06/19. No fluid removed. Continue monitor closely. Octreotide has been started. HD planned for today. (6) Thrombocytopenia: Code(s): D69.6 - Thrombocytopenia, unspecified Status: Acute Assessment and Plan: Plt count normal on 06/05/19 but dropped yesterday to 42K (verified on recheck). Heparin stopped and Ab ordered. Plt count better today. Continue to monitor. (7) Acute on chronic diastolic CHF (congestive heart failure): Code(s): I50.33 - Acute on chronic diastolic (congestive) heart failure Status: Acute Assessment and Plan: Echo on 04/03/19 showing EF 70% RV pressure overload and severe pulmonary HTN with PASP 130. No shunt. Diastolic dysfunction noted typeI. BNP 23969 on admission and CXR today 06/06/19 showing cardiomegaly with pulmonary vascular congestion, possible PNA. Diuretics have been attempted with minimal affect. Continue dialysis to improve fluid status (unable to remove fluid yesterday because of HoTN). Monitor blood pressure closely. (8) Acute hyponatremia: Code(s): E87.1 - Hypo-osmolalit
[2019-06-07] MEDS: MIDODRINE HCL 10 MG TABLET PO ×3 (10:54→18:40)
[2019-06-07] MEDS: ASPIRIN 81 MG CHEWABLE TABLET FEED TUBE (10:54)
[2019-06-07] MEDS: LACTULOSE 20 GM/30 ML UDC 30 GM PO ×2 (10:54→18:40)
[2019-06-07] MEDS: MEMANTINE 5 MG TABLET PO (10:54)
[2019-06-07] MEDS: OCTREOTIDE ACETATE 0.1 MG/ML AMP SUB-Q ×3 (10:55→18:41)
--- NOTE | 2019-06-07 11:20 | PCDIET ---
ICU Rounding Note: Tube feedings held overnight due to transfer to ICU and some concern for aspiration. RN reports 250mL NG output today. Last recorded weight is 89kg which is decreased. +I/O charted. Bowel Motility: +Liquid stools per fecal management system. Labs Reviewed: Glu (171), BUN (63), Cr (3.4), Na (134), PO4 (8.6), Alb (2.9) Meds Noted: Albuterol, Lactulose, Octreotide, Midodrine, Vancomycin, Atrovent, Levophed, D5 at 50mL/hr. Additional Notes: s/p dialysis 06/06/19 with no fluid removal; plan for dialysis again today. Abdomen with paracentesis sites, but no pressure sores. Abdomen firm and distended. Recommend resuming nutrition support when medically appropriate. Following daily in ICU rounds. Assessing/reassessing every Wednesday/Wednesday.
[2019-06-07 12:27] LABS: Glucose Point of Care 198 (65-105)
[2019-06-07] MEDS: LANSOPRAZOLE ORAL SUSP 30 MG/10 ML ORAL.SUSP FEED TUBE (13:24)
--- NOTE | 2019-06-07 14:39 | WPDINTPN ---
Progress Note: A&P Assessment and Plan (1) Shock: Code(s): R57.9 - Shock, unspecified Status: Acute Assessment and Plan: Multifactorial - cardiogenic, dehydration versus septic. could be related to sepsis, right heart failure, low cardiac output, hepatorenal syndrome - check lactic acid level - will order blood and urine cultures - hold antibiotics for now as patient is status post antibiotics, patient also currently PO vancomycin for diarrhea - patient has had multiple ultrasound-guided paracentesis with negative cultures - continue Levophed, greater than 60-65 mmHg - patient also on midodrine (2) Cirrhosis of liver with ascites: Qualifiers: Hepatic cirrhosis type: unspecified hepatic cirrhosis Qualified Code(s): K74.60 - Unspecified cirrhosis of liver; R18.8 - Other ascites Code(s): K74.60 - Unspecified cirrhosis of liver; R18.8 - Other ascites Status: Acute Assessment and Plan: elevated ammonia level, patient on lactulose. - status post multiple paracentesis - with history of cirrhosis, meld score is 37 - hepatitis panel was negative - significant elevation LFTs which could be related to shock liver, liver function tests trending down but total bili is elevated - right upper quadrant ultrasound, mild nonspecific gallbladder wall thickening could be related from underlying right heart failure, fluid status, cirrhosis or hypoproteinemia. Cholelithiasis or Cabrales sign. Congestive changes seen in the liver (3) Acute renal failure (ARF): Qualifiers: Acute renal failure type: unspecified Qualified Code(s): N17.9 - Acute kidney failure, unspecified Code(s): N17.9 - Acute kidney failure, unspecified Status: Acute Assessment and Plan: patient with acute renal failure, likely multifactorial, could be a better renal similar per Nephrology - patient on midodrine and octreotide, possibility of hepatic renal syndrome - tunneled hemodialysis catheter placed on 06/06/2019 - nephrology following the patient, dialysis per Nephrology (4) Pulmonary hypertension: Code(s): I27.20 - Pulmonary hypertension, unspecified Status: Acute Assessment and Plan: severe pulmonary hypertension W HR grew 5 classification. - Pulmonary following and appreciate their recommendations (5) Encephalopathy: Code(s): G93.40 - Encephalopathy, unspecified Status: Acute Assessment and Plan: multifactorial. sepsis, hyperammonemia, metabolic derangements, acute kidney injury /uremia. - CT scan of the head on 06/07/2019 showed age-related changes, chronic small vessel ischemic disease - continue lactulose, - continue dialysis (6) Acute on chronic diastolic CHF (congestive heart failure): Code(s): I50.33 - Acute on chronic diastolic (congestive) heart failure Status: Acute Assessment and Plan: echocardiogram 04/03/2019 showed EF of 70%, moderate concentric LVH, the septum hads a 'D' sign indicating RV pressure overload. Mild to moderate tricuspid valve regurg, severe pulmonary hypertension with RVSP of 130 mmHg, biatrial dilatation (7) DVT prophylaxis: Code(s): Z29.9 - Encounter for prophylactic measures, unspecified Status: Acute Assessment and Plan: SCDs (8) Thrombocytopenia: Code(s): D69.6 - Thrombocytopenia, unspecified Status: Acute Assessment and Plan: could be related to heparin, sepsis - HIT antibodies have been sent to lab - hold heparin SQ Additional Plan discussed at length with daughter, Zora. I explained to her all that is going on with Sendy, she understands and is going to talk to her sisters. I do know the family from the time a cared for Sendy Malin in March of 2019. Zora decided to make her a do not intubate and do not resuscitate Code Status - DNR/DNI prognosis: poor critical care time spent: 47 minutes Due to
[2019-06-07 15:21] LABS: Lactic Acid Reflex 2.8 mmol/L (0.7-2.1)
--- NOTE | 2019-06-07 15:51 | PM.PNPUL ---
Progress Note: A&P Assessment and Plan (1) Pulmonary hypertension assoc with unclear multi-factorial mechanisms: Code(s): I27.29 - Other secondary pulmonary hypertension Status: Acute Assessment and Plan: This patient likely has Pulmonary Hypertension WHO Group 5 Classification which is due to multiple causes including left sided diastolic dysfunction, probable underlying LAURO and COPD. Although the pulmonary pressures are reported as very high she would not be a good candidate for vasodilator therapy, prostacyclins or phosphodiasterase inhibitors. Calcium channel blockers would also no be helpful. Treatment of underlying disease including CHF, fluid removal with dialysis, using CPAP or BIPAP during sleep and treating her COPD with bronchodilators as well as maintaining oxygenation > 92% at all times is the mainstay of therapy. Her progonsis is very poor and I would discuss goals of care and code status with the family. (2) Thrombocytopenia: Code(s): D69.6 - Thrombocytopenia, unspecified Status: Acute Assessment and Plan: - HIT is being ruled out, heparin products stopped. - Query need for TTP or ther Thrombotic microangiopathy syndromes. - no Schistocytes reported on CBC differential. (3) Right heart failure: Qualifiers: Heart failure chronicity: acute on chronic Qualified Code(s): I50.813 - Acute on chronic right heart failure Code(s): I50.810 - Right heart failure, unspecified Status: Acute (4) Cirrhosis of liver with ascites: Qualifiers: Hepatic cirrhosis type: unspecified hepatic cirrhosis Qualified Code(s): K74.60 - Unspecified cirrhosis of liver; R18.8 - Other ascites Code(s): K74.60 - Unspecified cirrhosis of liver; R18.8 - Other ascites Status: Acute Subjective Date/time seen: 06/07/19 15:51 Interval history: Doing very poorly. Mental status has not improved. GCS is 7 today. Hypotensive at times. Severe thrombocytopenia which has occured roughly 4-5 day after heparin administration. Getting dialysis today. Right IJ dialysis catheter and right grown central line placed yesterday. Review of Systems Review of Systems: All systems reviewed & are unremarkable except as noted in HPI and below Exam Const: General: no acute distress Other: lethargic, nearly obtuned. HENMT: Mouth: Yes moist mucous membranes Neck: Neck: supple Other: difficult to assess JVP Resp: Auscultation: clear to auscultation bilaterally, no crackles, no rales, no rhonchi and no wheezes Cardio: Rate: regular rate Rhythm: regular rhythm Heart sounds: Murmur heart sound present (2/6 loudest at aortic area and left parsternal area) GI: GI Palp: Yes Soft to palpation Auscultation: normal bowel sounds Skin: General skin exam: normal color and no rashes or lesions noted Neuro: Other: lethargic, GCS 7-8 Extrem: General: normal to inspection, no edema and no pedal edema Objective Data Vital Signs Vital Signs: Vital Signs - 24 hr 06/06/19 16:00 06/06/19 16:03 06/06/19 16:15 Temperature Pulse Rate 75 72 74 Respiratory Rate 16 Blood Pressure 93/50 L 97/51 L Pulse Oximetry 99 06/06/19 16:45 06/06/19 17:00 06/06/19 17:10 Temperature Pulse Rate 73 72 72 Respiratory Rate Blood Pressure 84/55 L 82/49 L 80/49 L Pulse Oximetry 06/06/19 18:00 06/06/19 18:05 06/06/19 19:59 Temperature 36.6 C Pulse Rate 70 75 78 Respiratory Rate 16 20 Blood Pressure 81/48 L Pulse Oximetry 99 92 06/06/19 20:00 06/06/19 20:30 06/06/19 20:35 Temperature Pulse Rate 79 76 76 Respiratory Rate 17 17 Blood Pressure 89/40 L Pulse Oximetry 93 06/06/19 21:05 06/06/19 21:15 06/06/19 21:30 Temperature 37.2 C 37.2 C Pulse Rate 80 79 Respiratory Rate 17 17 Blood Pressure 88/51 L 119/62 Pulse Oximetry 3 L 93 94 06/06/19 22:00 06/07/19 00:00 06/07/19 00:25 Temperature 37.2 C 37.5 C Pulse Rate 77 77 76 Respirato
--- NOTE | 2019-06-07 16:00 | PM.PNNEP ---
Progress Note: A&P Assessment and Plan (1) Acute renal failure (ARF): Qualifiers: Acute renal failure type: unspecified Qualified Code(s): N17.9 - Acute kidney failure, unspecified Code(s): N17.9 - Acute kidney failure, unspecified Status: Acute Assessment and Plan: The patient has acute kidney injury. Etiology is unclear. Possible pre renal azotemi due to pulmonary hypertension. with very low sodium consider hepatorenal syndrome. will start midodrine and octreotide in case this is the issue. She is now in the intensive care unit. I discussed with Dr. Jama. Norepinephrine was started to help with blood pressure and also with the possibility of hepatorenal syndrome Patient is tolerating dialysis so far. Overall prognosis is grim. (2) Shock: Code(s): R57.9 - Shock, unspecified Status: Acute Assessment and Plan: Blood pressure is borderline. Getting midodrine and norepinephrine. (3) Cirrhosis of liver with ascites: Qualifiers: Hepatic cirrhosis type: unspecified hepatic cirrhosis Qualified Code(s): K74.60 - Unspecified cirrhosis of liver; R18.8 - Other ascites Code(s): K74.60 - Unspecified cirrhosis of liver; R18.8 - Other ascites Status: Acute Assessment and Plan: Possibly due to the pulmonary hypertension? She has ascites which rapidly re-accumulates. LFTs better today. (4) Pulmonary hypertension: Code(s): I27.20 - Pulmonary hypertension, unspecified Status: Acute Assessment and Plan: This is severe. Her pulmonary systolic pressure is higher than her systemic systolic blood pressure. Pulmonary is seeing the patient. (5) Biventricular heart failure: Code(s): I50.82 - Biventricular heart failure Status: Acute Assessment and Plan: . Additional Plan Subjective Date/time seen: 06/07/19 4:20pm Interval history: Late entry. seen 06/07/2019 at 4pm pt is on dialysis and tolerating it well. She was seen at 4:00 p.m.. resting in bed. Not responsive. Blood pressure is doing pretty well. Still early in the treatment so we have not tried taking any fluid off yet. Nurse instructed to take a little off today if her blood pressure does well Exam Narrative: Exam Narrative: Well developed well-nourished in no acute distress Lungs clear bilaterally Heart regular without rub Abdomen bowel sounds positive soft nontender Extremities 1-2+ edema Skin no rash Objective Data Vital Signs Vital Signs: Vital Signs - 24 hr 06/07/19 14:00 06/07/19 14:37 06/07/19 14:55 Temperature 36.9 C Pulse Rate 72 73 74 Respiratory Rate 12 14 14 Blood Pressure 95/54 L Pulse Oximetry 98 06/07/19 15:00 06/07/19 15:10 06/07/19 15:15 Temperature 36.9 C Pulse Rate 71 70 69 Respiratory Rate 13 Blood Pressure 123/57 L 115/59 L 94/54 L Pulse Oximetry 100 06/07/19 15:30 06/07/19 15:45 06/07/19 16:00 Temperature 36.7 C Pulse Rate 67 69 71 Respiratory Rate 11 L Blood Pressure 104/62 100/61 95/70 L Pulse Oximetry 100 06/07/19 16:10 06/07/19 16:15 06/07/19 16:30 Temperature Pulse Rate 66 66 68 Respiratory Rate Blood Pressure 90/52 L 102/61 114/57 L Pulse Oximetry 06/07/19 16:45 06/07/19 17:00 06/07/19 17:15 Temperature Pulse Rate 69 63 67 Respiratory Rate Blood Pressure 95/64 L 101/62 113/68 Pulse Oximetry 06/07/19 17:30 06/07/19 17:45 06/07/19 18:00 Temperature Pulse Rate 68 69 67 Respiratory Rate 9 L Blood Pressure 117/65 116/64 101/66 Pulse Oximetry 100 06/07/19 18:11 06/07/19 18:22 06/07/19 20:00 Temperature 36.4 C 36.4 C Pulse Rate 68 69 68 Respiratory Rate 12 12 Blood Pressure 115/70 116/61 98/58 L Pulse Oximetry 97 95 06/07/19 20:11 06/07/19 22:00 06/07/19 23:32 Temperature 36.6 C Pulse Rate 69 64 Respiratory Rate 16 12 Blood Pressure 97/56 L 89/53 L Pulse Oximetry 93 95 96 06/08/19 00:0
--- NOTE | 2019-06-07 17:32 | CONS_ITS ---
DATE OF CONSULTATION: HISTORY: This 68 years old has been admitted to the hospital through the emergency room where she was transferred from the long term for the complaint of increasing abdominal swelling. On initial evaluation in the emergency room, she was notedly hypotensive with blood pressure of only 71/53. She received 2 L of normal saline, but still her blood pressure was low. She had Ig placed by the ER staff. She was started on Levophed 5 mg and dobutamine 2.5 mcg with improvement in her blood pressure to 103/67. Initially, she was noted to be tachycardic in the 110, but her heart rate come down to around 50. Subsequently, she was afebrile, but felt cold when she arrived to the ICU. Her core temperature was 95.6, but rapidly corrected to 97.6. She was noted to be in acute renal failure by the lab criteria with a creatinine of 2.7. Her daughter was in the emergency room was concerned about the fluid overload. She had gained 20 pounds in 5 days. She had been hospitalized at [facility] for a fluid overload and was discharged for 5 days ago, but at this stage, she did not want her to be transferred to [facility]. She did not receive any antibiotic in the ER. She was only oriented to person. She was definitely encephalopathic when arrived and is evaluated by the hospitalist. She had ongoing history of 1. Schizophrenia. 2. Dementia. 3. Cirrhosis of the liver. 4. Severe pulmonary hypertension. 5. History of the recent respiratory failure requiring the hospitalization at [facility]. PAST MEDICAL HISTORY: In addition, she has ongoing history of anxiety with community-acquired pneumonia, DVT, hyperlipidemia, hypertension, respiratory failure, right heart failure, and schizophrenia. SOCIAL HISTORY: She carries the full code status. She is a former smoker. Used to smoke cigarettes. Does not drink and at present, she is living in the long term. MEDICATIONS: Multiple medications were listed as outpatient medications, particularly she was on 1. Haldol 100 mg IM monthly. 2. Metolazone 5 mg 3 times a week. 3. Pantoprazole 40 mg daily. 4. Spironolactone 1000 mg q.8 hours. 5. Lactulose 30 cc 3 times a day. 6. Aspirin 81 mg daily. 7. Carvedilol 12.5 mg twice a day. 8. Divalproex 250 mg q.12h. 9. Donepezil 5 mg at bedtime. 10. Memantine 5 mg daily. 11. Nicotine 1 patch transdermal. 12. Olanzapine 5 mg at bedtime. 13. Potassium chloride 20 mEq daily. 14. Atorvastatin 80 mg at bedtime. 15. Insulin by sliding scale. ALLERGIES: SHE IS ALLERGIC TO IODINATED CONTRAST MEDIA AND MEPERIDINE. PHYSICAL EXAMINATION: VITAL SIGNS: Evaluation up until now revealed her to be afebrile with pulse of 81, respiration 20, blood pressure 71/53, and pulse ox of 87%. HEENT: Head normocephalic with no cranial bruit. Ear, nose, throat examination normal. NECK: Supple with no cervical bruit. No thyromegaly. No lymphadenopathy and no meningeal signs. HEART: Regular. LUNGS: Clear with a rhonchi. ABDOMEN: Soft, flabby with normal bowel sounds. NEUROLOGICAL: She was an arousable, did not follow the verbal commands. Pupils were sluggish. Extraocular movements are spontaneously full. Gag was intact. Motor examination revealed her to have decreased strength in upper and lower extremities. Subsequently, I examined her again, she was more unresponsive at that particular time that she was being sent to the Radiology Department for a CT scan of the head, which has already been done and as per the report, the CT scan of the head is negative with no evidence of bleed. Upper quadrant ultrasound of the abdomen is biphasic. Portal venous reform could be from passive venous congestion. Nonspecific gallbladder wall thickening could be from underlying right heart failure with the
[2019-06-07 18:09] LABS: Reflex Lactic Acid Yes or No Add Lactic
[2019-06-07] MEDS: HEPARIN SODIUM 1,000 UNITS/ML VIAL 1000 UNITS IV PUSH (18:29)
[2019-06-07 18:39] LABS: Glucose Point of Care 168 (65-105)
[2019-06-07 18:51] LABS: Lactic Acid 2.3 mmol/L (0.7-2.1)
[2019-06-07] MEDS: predniSONE 40 MG, predniSONE 10 MG 50 MG PO (21:42)
[2019-06-07] MEDS: DONEPEZIL HCL 5 MG TABLET PO (21:42)
[2019-06-07 23:51] LABS: Glucose Point of Care 216 (65-105)
[2019-06-08] VITALS (8 sets, daily range): BP systolic 92–119; BP diastolic 50–68; PULSE 67–72; RESP 9–12; TEMP 36.6–36.8; O2SAT 96–98
[2019-06-08] MEDS: IPRATROPIUM BR 0.02% INH SOLN 0.5 MG/2.5 ML VIAL INHALATION (00:59)
[2019-06-08] MEDS: ALBUTEROL SULFATE NEB 2.5 MG/0.5 ML INH 5 MG INHALATION (00:59)
--- NOTE | 2019-06-08 01:08 | PC.NURSE ---
0108- Call placed and message left for Zora, and Grace to call back. Patient is requiring increased oxygen needs and family wanted to be called if there were any changes. Patient remains no intubation no cpr. 0113- Spoke with daughter Zora and updated on status.
[2019-06-08] MEDS: predniSONE 40 MG, predniSONE 10 MG 50 MG PO (03:40)
[2019-06-08 04:32] LABS: Hepatitis B Core Ab Total Nonreactive (Nonreactive)
[2019-06-08 04:41] LABS: Basophils Percent Auto 0.1 % (0.2-1.2); Hematocrit 44.8 % (37.0-47.0); Hemoglobin 12.3 g/dL (12.0-15.0); Immature Granulocyte Absolute 0.08 K/mm3 (0.00-0.031); Immature Granulocyte Percent A 0.8 % (0-0.5); Immature Platelet Fraction Pct 8.8 % (0.9-11.2); Lymphocytes Absolute Auto 0.32 K/mm3 (0.9-3.2); Lymphocytes Percent Auto 3.4 % (18.3-44.2); Mean Corpuscular HGB Conc 27.5 g/dl (32-36); Mean Corpuscular Hemoglobin 25.9 pg (26-34); Mean Corpuscular Volume 94.5 fl (80-100); Monocytes Absolute Auto 1.2 K/mm3 (0.1-0.6); Monocytes Percent Auto 12.9 % (2.6-8.5); Neutrophils Absolute Auto 7.8 K/mm3 (1.3-6.7); Neutrophils Percent Auto 82.8 % (45.5-73.1); Nucleated Red Blood Cells Absolute Auto 1.2 K/mm3 (0.0-0.012); Nucleated Red Blood Cells Perc 12.6 % (0.0-0.2); Platelet Count Result 43 k/mm3 (150-375); Red Blood Count 4.74 M/mm3 (4.2-5.4); Red Cell Distribution Width 19.9 % (11.5-14.5); White Blood Count 9.5 K/mm3 (4.5-10.0)
[2019-06-08 04:52] LABS: Alveolar/Arterial O2 Gradient 474.1 mmHg; Carboxyhemoglobin 1.1 % THb (0-2.0); Fractional Inspired Oxygen 90 %; HCO3 ABG 26.6 mEq/l (22.0-26.0); Methemoglobin ABG 0.5 %THb (0-1.5); Oxygen Content ABG 18.1 %vol (16.0-22.0); Oxygen Saturation ABG 95.5 % (95.0-100.0); Oxyhemoglobin 93.9 % THb (90.0-100.0); PO2 ABG 96.2 mmHg (80.0-100.0); PO2 FiO2 Ratio Arterial Blood 1.07 %; Reduced Hemoglobin 4.5 %THb (0-5.0); Total Hemoglobin 13.6 g/dL (12.0-18.0)
[2019-06-08 04:54] LABS: Ammonia 26 umol/L (9-30)
[2019-06-08 04:54] LABS: PCO2 ABG 69.7 mmHg (35.0-45.0); pH ABG 7.199 (7.350-7.450)
[2019-06-08 04:55] LABS: Lactic Acid 2.6 mmol/L (0.7-2.1)
[2019-06-08 04:55] LABS: Modified Allen's Test Pass; Site Drawn RIGHT RADIAL
[2019-06-08 04:56] LABS: Device NON-REBREATHER MASK
[2019-06-08] MEDS: VANCOMYCIN ORAL 125 MG/2.5 ML SYRUP PO (05:17)
[2019-06-08] MEDS: LANSOPRAZOLE ORAL SUSP 30 MG/10 ML ORAL.SUSP FEED TUBE (05:17)
[2019-06-08 05:22] LABS: Macrocytosis 1+ (NORMAL); Ovalocytes 2+ (NORMAL); Platelet Estimate Decreased (Adequate)
[2019-06-08 05:46] LABS: Albumin Level 2.8 g/dL (3.5-5.1); Alkaline Phosphatase 138 U/L (38-126); Bilirubin Indirect 0.8 mg/dL (0-1.1); Bilirubin,Total 3.9 mg/dL (0.2-1.3); Blood Urea Nitrogen 47 mg/dL (7-17); Calcium 7.3 mg/dL (8.4-10.2); Carbon Dioxide 28 mmol/L (22-30); Chloride 92 mmol/L (98-107); Estimated Glomerular Filt Rate 20; Glucose 225 mg/dL (65-105); Magnesium 2.2 mg/dL (1.6-2.3); Phosphorus 7.5 mg/dL (2.5-4.5); Potassium 4.6 mmol/L (3.4-5.0); Sodium 132 mmol/L (137-145)
[2019-06-08 05:47] LABS: Alanine Aminotransferase 1193 U/L (4-35); Aspartate Amino Transferase 920 U/L (14-36)
[2019-06-08 06:30] LABS: Glucose Point of Care 197 (65-105)
--- NOTE | 2019-06-08 08:41 | PM.IMPN ---
Progress Note: A&P Assessment and Plan (1) Acute respiratory failure: Code(s): J96.00 - Acute respiratory failure, unspecified whether with hypoxia or hypercapnia Status: Acute Assessment and Plan: Patient with worsening hypoxia possibly related to the severe pulmonary HTN. Discussed with Dr Jama. Will discuss with family about comfort measures. (2) Severe pulmonary arterial systolic hypertension: Code(s): I27.21 - Secondary pulmonary arterial hypertension Status: Deleted Assessment and Plan: Echocardiogram showing a pulmonary pressure of 79 mmHg. Etiology unclear but consider untreated sleep apnea or chronic pulmonary embolisms. Also consider undiagnosed primary pulm HTN henri felt less likely. Appreciate Pulmonary input. (3) Shock: Code(s): R57.9 - Shock, unspecified Status: Acute Assessment and Plan: Patient with hypotension on admission felt to be shock. Patient responded well to the Levophed and dobutamine and these have been weaned off on May 31. Patietn resumed on Levophed on 06/06 and currently up to 14mcg/min. Continue to monitor blood pressure closely. Cultures are negative. (4) Cirrhosis of liver with ascites: Qualifiers: Hepatic cirrhosis type: unspecified hepatic cirrhosis Qualified Code(s): K74.60 - Unspecified cirrhosis of liver; R18.8 - Other ascites Code(s): K74.60 - Unspecified cirrhosis of liver; R18.8 - Other ascites Status: Acute Assessment and Plan: Etiology unclear for the cirrhosis. Could be related to the severe pulmonary hypertension. Unclear if if patient had issue with alcohol in the past. Hepatitis panel was negative. Paracentesiss on 05/29 with 1300ml removed and repeat on 06/03 with 2450ml removed. Current meld score is 37. Long-term prognosis is poor. Elevated LFTs noted which could be related to liver congestion and are improving. Low plt noted again today but stable. (5) Acute renal failure (ARF): Qualifiers: Acute renal failure type: unspecified Qualified Code(s): N17.9 - Acute kidney failure, unspecified Code(s): N17.9 - Acute kidney failure, unspecified Status: Acute Assessment and Plan: Baseline creatinine was normal in March. Creatinine 2.7 on admission that improved initially then worsened again to 3.7. No contrast exposure noted. Could be related to septic shock or hepatorenal syndrome. Consider also cardiorenal given the severe pulmonary hypertension. Appreciate Nephrology input. Hemodialysis catheter placed hemodialysis started. (6) Acute on chronic diastolic CHF (congestive heart failure): Code(s): I50.33 - Acute on chronic diastolic (congestive) heart failure Status: Acute Assessment and Plan: Echo now showing severe RA and RV enlargement with PASP 79 with severe TR. EF 70% with diastolic dysfunction noted typeI. BNP 96122 on admission and CXR showing pulmonary edema consisent with biventricular failure. Diuretics have been attempted with minimal affect. Plan now is to use her dialysis to improve fluid status. Monitor closely. (7) Encephalopathy: Code(s): G93.40 - Encephalopathy, unspecified Status: Acute Assessment and Plan: Multifactorial from ammonia and uremia. Also could be chronic. Contineu to monitor. (8) Acute hyponatremia: Code(s): E87.1 - Hypo-osmolality and hyponatremia Status: Acute Assessment and Plan: Mild hyponatremia. Serum sodium normally runs in the 130's range. Continue to monitor. (9) Dementia: Qualifiers: Dementia behavioral disturbance: with behavioral disturbance Dementia type: unspecified type Qualified Code(s): F03.91 - Unspecified dementia with behavioral disturbance Code(s): F03.90 - Unspecified dementia without behavioral disturbance Status: Acute Assessment and Plan: Patient with fani
[2019-06-08] MEDS: MORPHINE SULFATE 4 MG/ML INJ 5 MG IV PUSH (09:32)
[2019-06-08] MEDS: LORAZEPAM INJ 2 MG/ML VIAL IV PUSH (09:33)
--- NOTE | 2019-06-08 10:44 | PCDIET ---
Nutrition Follow-Up Complete: Nutrition Diagnosis: Inadequate oral intake at present related to altered mental status as evidenced by NPO, NG tube in place to suction. Nutrition Goal: Patient to meet estimated nutritional needs. Goal not met. Patient currently NPO with overall decline. Had dialysis yesterday with 2L UF. Last recorded weight is 88.1 kg which is decreased 2/2 UF. Bowel Motility: BM x 3 today. Labs Reviewed: Glu (225), BUN (47), Cr (2.9), Na (132), Alb (2.8), Arie Ca (8.26) Meds Noted: Albumin, Midodrine, Albuterol, Levophed, Atrovent, Octreotide, Lactulose, Prednisone, Vancomycin Additional Notes: Patient remains DNR with family at bedside. If condition changes and nutrition support becomes medically appropriate, consult RD for recommendations. Nutrition Monitoring and Evaluation: Follow up in 3 days.
--- NOTE | 2019-06-08 12:46 | WPDINTPN ---
Progress Note: A&P Assessment and Plan (1) Shock: Code(s): R57.9 - Shock, unspecified Status: Acute Assessment and Plan: Multifactorial - cardiogenic, dehydration versus septic. could be related to sepsis, right heart failure, low cardiac output, hepatorenal syndrome - check lactic acid level - will order blood and urine cultures - hold antibiotics for now as patient is status post antibiotics, patient also currently PO vancomycin for diarrhea - patient has had multiple ultrasound-guided paracentesis with negative cultures - continue Levophed, greater than 60-65 mmHg - patient also on midodrine - 3 daughters at bedside, Zoraaj Sendy who decided to make the patient comfort measures with withdrawal of support. (2) Cirrhosis of liver with ascites: Qualifiers: Hepatic cirrhosis type: unspecified hepatic cirrhosis Qualified Code(s): K74.60 - Unspecified cirrhosis of liver; R18.8 - Other ascites Code(s): K74.60 - Unspecified cirrhosis of liver; R18.8 - Other ascites Status: Acute Assessment and Plan: elevated ammonia level, patient on lactulose. - status post multiple paracentesis - with history of cirrhosis, meld score is 37 - hepatitis panel was negative - significant elevation LFTs which could be related to shock liver, liver function tests trending down but total bili is elevated - right upper quadrant ultrasound, mild nonspecific gallbladder wall thickening could be related from underlying right heart failure, fluid status, cirrhosis or hypoproteinemia. Cholelithiasis or Cabrales sign. Congestive changes seen in the liver (3) Acute renal failure (ARF): Qualifiers: Acute renal failure type: unspecified Qualified Code(s): N17.9 - Acute kidney failure, unspecified Code(s): N17.9 - Acute kidney failure, unspecified Status: Acute Assessment and Plan: patient with acute renal failure, likely multifactorial, could be a better renal similar per Nephrology - patient on midodrine and octreotide, possibility of hepatic renal syndrome - tunneled hemodialysis catheter placed on 06/06/2019 - nephrology following the patient, dialysis per Nephrology (4) Pulmonary hypertension: Code(s): I27.20 - Pulmonary hypertension, unspecified Status: Acute Assessment and Plan: severe pulmonary hypertension W HR grew 5 classification. - Pulmonary following and appreciate their recommendations (5) Encephalopathy: Code(s): G93.40 - Encephalopathy, unspecified Status: Acute Assessment and Plan: multifactorial. sepsis, hyperammonemia, metabolic derangements, acute kidney injury /uremia. - CT scan of the head on 06/07/2019 showed age-related changes, chronic small vessel ischemic disease - continue lactulose, - continue dialysis (6) Acute on chronic diastolic CHF (congestive heart failure): Code(s): I50.33 - Acute on chronic diastolic (congestive) heart failure Status: Acute Assessment and Plan: echocardiogram 04/03/2019 showed EF of 70%, moderate concentric LVH, the septum hads a 'D' sign indicating RV pressure overload. Mild to moderate tricuspid valve regurg, severe pulmonary hypertension with RVSP of 130 mmHg, biatrial dilatation (7) DVT prophylaxis: Code(s): Z29.9 - Encounter for prophylactic measures, unspecified Status: Acute Assessment and Plan: SCDs (8) Thrombocytopenia: Code(s): D69.6 - Thrombocytopenia, unspecified Status: Acute Assessment and Plan: could be related to heparin, sepsis - HIT antibodies have been sent to lab - hold heparin SQ Additional Plan discussed With 3 daughters, Zora, Sendy, aj and updated them with patient's condition and plan of care. I answered all questions. Given her multiorgan system failure her mortality rate is significantly elevated which was conveyed to the daughters. After great
--- NOTE | 2019-06-09 07:14 | PM.DDS ---
Discharge Sum: Prov Provider Primary care physician: UNKNOWN,DOCTOR Admitting provider: Jody Sutton DO Consults: 05/29/19 20:41 Consult to Physician Routine Comment: Consulting Provider: Jamar Miranda Reason for consultation: shock Has provider been notified: Yes 06/03/19 Consult to Physician Routine Comment: Consulting Provider: Ehsan Talbot Reason for consultation: acute renal failure Has provider been notified: Yes Consult to Physician Routine Comment: Consulting Provider: Gita Kaufman call center rn/MD group to consult: CARDIOLOGY Reason for consultation: DR SULLIVAN- CXR pulmonary edema history of shock Has provider been notified: Yes 06/05/19 Consult to Physician Routine Comment: called cell and notified Consulting Provider: Camacho Vincent Reason for consultation: decreased mental status Has provider been notified: Yes 06/06/19 Consult to Physician Routine Comment: added per doctor Consulting Provider: Jazmin Barrow Reason for consultation: ACUTE RESP Has provider been notified: Yes 06/06/19 20:55 Consult to Physician Routine Comment: Consulting Provider: Tanya Jama call center rn/MD group to consult: Dr. Jama Reason for consultation: Shock Has provider been notified: Yes Pronouncing clinician: Tanya Jama Discharge Sum: Diag PCOD Severe Pulmonary Hypertention. Contributing Factors (1) Acute respiratory failure: (2) Severe pulmonary arterial systolic hypertension: (3) Shock: (4) Cirrhosis of liver with ascites: (5) Acute renal failure (ARF): (6) Acute on chronic diastolic CHF (congestive heart failure): (7) Encephalopathy: (8) Acute hyponatremia: (9) Dementia: Discharge Sum: Summary Date and Time Date of admission: 05/29/19 20:39 Summary Details: 68yo female with cirrhosis and severe pulmonary hypertension admitted for shock. Patient admitted to ICU and stablized. She came off pressors on 06/01/19. Patient also had acute diastolic CHF and HEYDI. She had HD catheter placed on 06/05 and underwent HD. HoTN on the evening of 06/05 and femoral line placed and moved back to ICU. She required pressors at high doses and also developed respiratory failure. Family did not want further treatment and comfort measures inacted. Pateint of 06/08/19. Additional Data Attending physician: Bolivar Fairbanks MD
[2019-06-09 10:04] LABS: Heparin Induced Platelet Antib Negative (Negative); UFH SRA Result Interpretation Indeterminate (Negative)
[2019-06-09 23:11] LABS: Platelet Antibody, Direct IgG NEGATIVE (NEGATIVE)
== END 2019-06-08 10:52 | disposition expired | DRG 720 ==
LOC: ANHED 20:48 → ANHICU 21:30 → ANH3MEDSUR 06-02 15:35 → ANHIMU 06-03 03:07 → ANHICU 06-06 21:27
PROVIDERS: Family Medicine; Internal Medicine; Internal Medicine Critical Care Medicine; Internal Medicine Nephrology; Nurse Practitioner; Surgery; Admitting Provider Internal Medicine; Emergency Provider General Practice; Visit Provider Internal Medicine
PROC: 02HV33Z Insertion of Infusion Device into Superior Vena Cava, Percutaneous Approach (ICD-10-PCS; principal; 2019-06-06 11:30)
DX: A41.9 Sepsis, unspecified organism (principal); R65.21 Severe sepsis with septic shock; R57.0 Cardiogenic shock; R57.8 Other shock; J96.01 Acute respiratory failure with hypoxia; G93.49 Other encephalopathy; N17.9 Acute kidney failure, unspecified; E87.1 Hypo-osmolality and hyponatremia; I11.0 Hypertensive heart disease with heart failure; I50.33 Acute on chronic diastolic (congestive) heart failure; K65.2 Spontaneous bacterial peritonitis; I48.20 Chronic atrial fibrillation, unspecified; R18.8 Other ascites; E86.0 Dehydration; F41.9 Anxiety disorder, unspecified; F03.90 Unspecified dementia, unspecified severity, without behavioral disturbance, psychotic disturbance, mood disturbance, and anxiety; E78.5 Hyperlipidemia, unspecified; I27.20 Pulmonary hypertension, unspecified; F20.9 Schizophrenia, unspecified; E11.9 Type 2 diabetes mellitus without complications; K72.90 Hepatic failure, unspecified without coma; K74.60 Unspecified cirrhosis of liver; G47.33 Obstructive sleep apnea (adult) (pediatric); D68.8 Other specified coagulation defects; J44.9 Chronic obstructive pulmonary disease, unspecified; E66.01 Morbid (severe) obesity due to excess calories; I27.29 Other secondary pulmonary hypertension; D69.6 Thrombocytopenia, unspecified; Z86.718 Personal history of other venous thrombosis and embolism; Z87.891 Personal history of nicotine dependence; Z68.39 Body mass index [BMI] 39.0-39.9, adult; Z86.73 Personal history of transient ischemic attack (TIA), and cerebral infarction without residual deficits; Z99.2 Dependence on renal dialysis
CPT/HCPCS: 36415; 36556; 36600; 49083; 70450; 71045; 74176; 76705; 77001; 80048; 80053; 81001; 82042; 82140; 82150; 82375; 82570; 82805; 82945; 83050; 83605; 83615; 83735; 83880; 84100; 84156; 84157; 84300; 85014; 85018; 85025; 85027; 85049; 85055; 85610; 85730; 85999; 86022; 86023; 86704; 86705; 86706; 86803; 86850; 86900; 86901; 87040; 87045; 87046; 87070; 87075; 87081; 87086; 87205; 87340; 87427; 88108; 89051; 93005; 93306; 94002; 94640; 94660; 96361; 96365; 99291; A9270; C1751; C1752; G0257; J0131; J0696; J1250; J1644; J1940; J2060; J2250; J2270; J2354; J2405; J2704; J3010; J3430; J3475; J3480; J7030; J7040; J7070; J7120; J7512; P9047